=== PATIENT | female | born 1940 | race Caucasian/White ===

== ENCOUNTER 2016-12-05 22:29 | Inpatient (IN) ==
[2016-12-05] MEDS ORDERED: 0.9 % Sodium Chloride 1,000 ML IVC ONE (23:06)
[2016-12-05] MEDS ORDERED: Piperacillin/Tazobactam 3.375 GM in D5% in Water (Mini-Bag+) 100 ML IVPB ONE (23:06)
[2016-12-05] MEDS ORDERED: Vancomycin 750 MG in D5% in Water 250 ML IVPB ONE (23:06)
[2016-12-05] MEDS ORDERED: 0.9 % Sodium Chloride 500 ML IVC ONE (23:08)
[2016-12-05] MEDS ORDERED: Thiamine (B-1) 100 MG, Folic Acid 1 MG, MVI, adult with vitamin K 10 ML in 0.9 % Sodi... IVPB ONE (23:30)
--- NOTE | 2016-12-05 23:42 | Emergency Department Note ---
Disposition Clinical Impression: Elevated troponin, Peripheral artery disease, Ischemic necrosis of foot Acute CHF (congestive heart failure) Qualifiers: Congestive heart failure type: unspecified congestive heart failure type Qualified Code(s): I50.9 - Heart failure, unspecified UTI (urinary tract infection) Qualifiers: Urinary tract infection type: site unspecified Hematuria presence: with hematuria Qualified Code(s): N39.0 - Urinary tract infection, site not specified Disposition: Admitted As Inpatient Condition: Critical Time of Disposition: 01:37 Extremity Problem HPI - General Chief complaint: ED Extremity Problem,Nontraumatic Stated complaint: left foot, blood in urine Time Seen by Provider: 12/05/16 22:54 Source: family Limitations: no limitations Nursing Notes Reviewed: Yes Vital Signs Reviewed: Yes - History of Present Illness HPI Narrative: Mrs. Farias, a 68-year-old female, presents for evaluation of left foot necrosis. Patient is brought by her son, [id number], and granddaughter who are all nurses at this facility. Patient lives in [place] by herself. She was in [facility] in [place], had reportedly been medically cleared, and scheduled for left foot amputation today. She is unable to care for herself at home despite having a nursing administrator. As such, family drove and took the patient AMA from [place] and brought her to this facility where she can be seen, evaluated, and has social support. Patient is poorly known to her family thus duration of symptoms are unknown. There were contacted for surgical consent which made him aware of the patient's condition. Patient has had waxing and waning lucid intervals. 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 Known abdominal aortic aneurysm at approximately 2.5cm and reportedly stable. Known history of chronic everyday EtOH. Last drink was 3 days ago. Pain Scale: 8 - Related Data Allergies Allergy/AdvReac Type Severity Reaction Status Date / Time No Known Allergies Allergy Verified 12/05/16 22:51 Limitations: ROS unobtainable due to patients medical condition Past Medical History - Past Medical History Medical history: Reports: COPD - Social History Smoking Status: Current every day smoker Alcohol use: Reports: heavy Physical Exam Vital Signs Reviewed General: Patient is alert, oriented, appears frail and cachectic. HEENT: No facial asymmetry. Head is normocephalic and atraumatic. Oral mucosa tacky. Trachea midline. Cardiovascular: Heart regular rate and rhythm without clicks, rubs, gallops, or murmurs. Bilateral 1+ pitting pedal edema. Unable to palpate posterior tibial or dorsalis pedis pulse bilaterally. Respiratory: Symmetric chest rise with poor respiratory effort. Prolonged expiratory phase. Bilateral breath sounds are diminished without wheezing, crackles, or rhonchi. Abdomen: Bowel sounds present normoactive x-4 quadrants. Abdomen is soft, nondistended, and nontender. Musculoskeletal: Unable to assess secondary to patient's state. Patient is able to wiggle her toes bilaterally. Skin: Toes of left foot are necrotic and mummified. This extends to the forefoot where she has skin sloughing which continues to the malleoli and transitions into intact erythematous skin proximally 5-6 cm proximal to the malleoli. Right foot is warm with capillary refill. There is, however, cold skin overlying the patient's right Achilles tendon. Neuro: Cranial nerves II through XII without deficit. Sensation light touch intact. Psych: Patient's affect is appropriate for situation. - General Limitations: no limitations General appearance: alert Course Course Narrative: 11:[address] Fuller, religion instructor vascular surgery, to discuss the patient' s initial presentation evaluate whether he would entertain the patient at this facility. Based on our presentation the patient's critical picture, Dr. Fuller agrees to consult with mission to the medical service for medical optimization for surgery. On intake, patient is tachycardic, will manage the sepsis picture at this time. Patient lab work is concerning. She has elevated troponin of 0.09. Slightly low creatinine. Multiple electrolyte abnormalities - though none are critically low or critically high. Urinalysis is also concerning for UTI. Patient is not septic at this time. She has pulmonary edema on x-ray. We will stop IV fluids. She is receiving empiric vancomycin, Zosyn, thiamine, and folic acid. Recommend admission to the ICU for her vascular picture, acute exacerbation of CHF, UTI, and alcohol withdrawal. I discussed the patient with the admitting hospitalist, Dr. Thornton, who agrees to accept the patient to the ICU. Vital Signs Temperature 98 F 12/05/16 22:46 Pulse Rate 119 12/05/16 22:46 Respiratory Rate 18 12/05/16 22:46 Blood Pressure 134/69 12/05/16 22:46 O2 Sat by Pulse Oximetry 93 12/05/16 22:46 Temperature 97.7 F 12/06/16 04:00 Pulse Rate 80 12/06/16 04:00 Respiratory Rate 20 12/06/16 04:00 Blood Pressure 116/64 12/06/16 04:00 O2 Sat by Pulse Oximetry 100 12/06/16 04:00 Oxygen Delivery Oxygen Delivery Nasal Cannula Extremity Problem, Nontraumati - Lab Data Result diagrams: 12/06/16 00:21 12/06/16 00:21 Lab Results 12/06/16 12/06/16 12/06/16 Range/Units 00:21 00:21 00:21 WBC 9.5 (4.3-11.1) K/mcL RBC 5.14 H (3.82-4.97) M/mcL Hgb 14.6 (11.5-15.4) g/dL Hct 47.7 H (35.3-44.9) % MCV 92.8 (83.0-100.0) fL MCH 28.4 (28.0-33.3) pg MCHC 30.6 L (31.6-35.5) g/dL RDW 15.6 H (11.5-14.5) % Plt Count 119 L (140-400) K/mcL MPV 12.6 H (9.4-12.4) fL Immature Gran % 0.5 (0-4) % Seg Neutrophils % 87.6 % Lymphocytes % 7.3 % Monocytes % 4.1 % Eosinophils % 0.3 % Basophils % 0.2 % Neutrophils # 8.3 (1.6-8.9) K/mcL Lymphocytes # 0.7 (0.6-4.6) K/mcL Monocytes # 0.4 (0.0-1.3) K/mcL Eosinophils # 0.0 (0.0-0.6) K/mcL Basophils # 0.0 (0.0-0.2) K/mcL PT 13.8 H (9.4-12.1) Seconds INR 1.3 APTT 30.1 (26.0-36.0) Seconds VBG pH (7.32-7.42) pH Units VBG pCO2 (41-51) mmHg VBG pO2 (25-40) mmHg VBG HCO3 (21-27) mEq/L Sodium 140 (136-145) mEq/L Potassium 3.3 L (3.5-4.5) mEq/L Chloride 104 (98-109) mEq/L Carbon Dioxide 25 (19-29) mEq/L BUN 12 (7-20) mg/dL Creatinine 0.49 L (0.57-1.11) mg/dL Est GFR ( Amer) > 60 (> 60) Est GFR (Non-Af Amer) > 60 (> 60) BUN/Creatinine Ratio 24 (6-26) Glucose 92 (70-99) mg/dL Calculated Osmolality 289 (280-300) Lactic Acid (0.5-2.2) mmol/L Calcium 8.1 L (8.6-10.8) mg/dL Phosphorus 1.7 L (2.3-4.7) mg/dL Magnesium 1.4 L (1.6-2.6) mg/dL Total Bilirubin 3.8 H (0.2-1.2) mg/dL Direct Bilirubin 2.5 H (0.0-0.5) mg/dL Indirect Bilirubin 1.3 H (0.0-1.2) mg/dL AST 68 H (5-34) Units/L ALT 115 H (0-55) Units/L Alkaline Phosphatase 177 H (38-126) Units/L Troponin I (0-0.03) ng/mL B-Natriuretic Peptide (0-100) pg/mL Serum Total Protein 4.9 L (6.0-8.3) g/dL Albumin 1.9 L (3.5-5.0) g/dL Globulin 3.0 (2.4-3.5) g/dL Albumin/Globulin Ratio 0.6 L (1.1-2.2) Urine Color (Yellow) Urine Clarity (Clear) Urine pH (5.0-8.0) pH Units Ur Specific Prospect (1.010-1.025) Urine Protein (Neg-Trace) mg/dL Urine Glucose (UA) (Normal) mg/dL Urine Ketones (Negative) mg/dL Urine Blood (Negative) Urine Nitrite (Negative) Urine Bilirubin (Negative) Urine Urobilinogen (Normal) mg/dL Ur Leukocyte Esterase (Negative) Urine Microscopic RBC (0-3) per hpf Urine Microscopic WBC (0-3) per hpf Ur Squamous Epith Cells (None-Few) per lpf Urine Bacteria (None-Few) per hpf Ur Culture Indicated? (NO) 12/06/16 12/06/16 12/06/16 Range/Units 00:21 00:21 00:27 WBC (4.3-11.1) K/mcL RBC (3.82-4.97) M/mcL Hgb (11.5-15.4) g/dL Hct (35.3-44.9) % MCV (83.0-100.0) fL MCH (28.0-33.3) pg MCHC (31.6-35.5) g/dL RDW (11.5-14.5) % Plt Count (140-400) K/mcL MPV (9.4-12.4) fL Immature Gran % (0-4) % Seg Neutrophils % % Lymphocytes % % Monocytes % % Eosinophils % % Basophils % % Neutrophils # (1.6-8.9) K/mcL Lymphocytes # (0.6-4.6) K/mcL Monocytes # (0.0-1.3) K/mcL Eosinophils # (0.0-0.6) K/mcL Basophils # (0.0-0.2) K/mcL PT (9.4-12.1) Seconds INR APTT (26.0-36.0) Seconds VBG pH 7.40 (7.32-7.42) pH Units VBG pCO2 57 H (41-51) mmHg VBG pO2 43 H (25-40) mmHg VBG HCO3 35 H (21-27) mEq/L Sodium (136-145) mEq/L Potassium (3.5-4.5) mEq/L Chloride (98-109) mEq/L Carbon Dioxide (19-29) mEq/L BUN (7-20) mg/dL Creatinine (0.57-1.11) mg/dL Est GFR ( Amer) (> 60) Est GFR (Non-Af Amer) (> 60) BUN/Creatinine Ratio (6-26) Glucose (70-99) mg/dL Calculated Osmolality (280-300) Lactic Acid 1.8 (0.5-2.2) mmol/L Calcium (8.6-10.8) mg/dL Phosphorus (2.3-4.7) mg/dL Magnesium (1.6-2.6) mg/dL Total Bilirubin (0.2-1.2) mg/dL Direct Bilirubin (0.0-0.5) mg/dL Indirect Bilirubin (0.0-1.2) mg/dL AST (5-34) Units/L ALT (0-55) Units/L Alkaline Phosphatase (38-126) Units/L Troponin I 0.09 H* (0-0.03) ng/mL B-Natriuretic Peptide (0-100) pg/mL Serum Total Protein (6.0-8.3) g/dL Albumin (3.5-5.0) g/dL Globulin (2.4-3.5) g/dL Albumin/Globulin Ratio (1.1-2.2) Urine Color (Yellow) Urine Clarity (Clear) Urine pH (5.0-8.0) pH Units Ur Specific Prospect (1.010-1.025) Urine Protein (Neg-Trace) mg/dL Urine Glucose (UA) (Normal) mg/dL Urine Ketones (Negative) mg/dL Urine Blood (Negative) Urine Nitrite (Negative) Urine Bilirubin (Negative) Urine Urobilinogen (Normal) mg/dL Ur Leukocyte Esterase (Negative) Urine Microscopic RBC (0-3) per hpf Urine Microscopic WBC (0-3) per hpf Ur Squamous Epith Cells (None-Few) per lpf Urine Bacteria (None-Few) per hpf Ur Culture Indicated? (NO) 12/06/16 12/06/16 Range/Units 00:27 00:44 WBC (4.3-11.1) K/mcL RBC (3.82-4.97) M/mcL Hgb (11.5-15.4) g/dL Hct (35.3-44.9) % MCV (83.0-100.0) fL MCH (28.0-33.3) pg MCHC (31.6-35.5) g/dL RDW (11.5-14.5) % Plt Count (140-400) K/mcL MPV (9.4-12.4) fL Immature Gran % (0-4) % Seg Neutrophils % % Lymphocytes % % Monocytes % % Eosinophils % % Basophils % % Neutrophils # (1.6-8.9) K/mcL Lymphocytes # (0.6-4.6) K/mcL Monocytes # (0.0-1.3) K/mcL Eosinophils # (0.0-0.6) K/mcL Basophils # (0.0-0.2) K/mcL PT (9.4-12.1) Seconds INR APTT (26.0-36.0) Seconds VBG pH (7.32-7.42) pH Units VBG pCO2 (41-51) mmHg VBG pO2 (25-40) mmHg VBG HCO3 (21-27) mEq/L Sodium (136-145) mEq/L Potassium (3.5-4.5) mEq/L Chloride (98-109) mEq/L Carbon Dioxide (19-29) mEq/L BUN (7-20) mg/dL Creatinine (0.57-1.11) mg/dL Est GFR ( Amer) (> 60) Est GFR (Non-Af Amer) (> 60) BUN/Creatinine Ratio (6-26) Glucose (70-99) mg/dL Calculated Osmolality (280-300) Lactic Acid (0.5-2.2) mmol/L Calcium (8.6-10.8) mg/dL Phosphorus (2.3-4.7) mg/dL Magnesium (1.6-2.6) mg/dL Total Bilirubin (0.2-1.2) mg/dL Direct Bilirubin (0.0-0.5) mg/dL Indirect Bilirubin (0.0-1.2) mg/dL AST (5-34) Units/L ALT (0-55) Units/L Alkaline Phosphatase (38-126) Units/L Troponin I (0-0.03) ng/mL B-Natriuretic Peptide 3035 H (0-100) pg/mL Serum Total Protein (6.0-8.3) g/dL Albumin (3.5-5.0) g/dL Globulin (2.4-3.5) g/dL Albumin/Globulin Ratio (1.1-2.2) Urine Color [place] A (Yellow) Urine Clarity Cloudy A (Clear) Urine pH 5.5 (5.0-8.0) pH Units Ur Specific Prospect > 1.030 H (1.010-1.025) Urine Protein 100 H (Neg-Trace) mg/dL Urine Glucose (UA) Normal (Normal) mg/dL Urine Ketones Trace H (Negative) mg/dL Urine Blood Large H (Negative) Urine Nitrite Positive A (Negative) Urine Bilirubin Moderate H (Negative) Urine Urobilinogen Normal (Normal) mg/dL Ur Leukocyte Esterase Small H (Negative) Urine Microscopic RBC 15-30 H (0-3) per hpf Urine Microscopic WBC 0-3 (0-3) per hpf Ur Squamous Epith Cells Many H (None-Few) per lpf Urine Bacteria None Seen (None-Few) per hpf Ur Culture Indicated? YES A (NO) Attestation Statement - Attestation Attestation: I examined this patient and my medical decision-making was reviewed with the Resident Physician. I agree with the documented findings, disposition and treatment plan as described except to the extent set forth below. Findings consistent with necrotic foot. Concurrent urinary tract infection. Discussed case with vascular surgery and the patient will be admitted for medical maximization. She was treated for sepsis. Her vital signs improved with IV fluids. She does have history of alcoholism and ciwa initiated. The patient only admitted to the intensive care unit for further management of necrotic foot. I spent greater than 35 minutes of critical care time resuscitating this acutely ill patient suffering from alcoholism, alcohol withdrawal, sepsis, foot. This is excluding billable procedures..
[2016-12-06 00:36] LABS: Basophils % 0.2 %; Eosinophils % 0.3 %; Hematocrit 47.7 % (35.3-44.9); Hemoglobin 14.6 g/dL (11.5-15.4); Immature Granulocytes % 0.5 % (0-4); Lymphocytes # 0.7 K/mcL (0.6-4.6); Lymphocytes % 7.3 %; Mean Corpuscular HGB Conc 30.6 g/dL (31.6-35.5); Mean Corpuscular Hemoglobin 28.4 pg (28.0-33.3); Mean Corpuscular Volume 92.8 fL (83.0-100.0); Mean Platelet Volume 12.6 fL (9.4-12.4); Monocytes # 0.4 K/mcL (0.0-1.3); Monocytes % 4.1 %; Neutrophils # 8.3 K/mcL (1.6-8.9); Platelet Count 119 K/mcL (140-400); Red Blood Count 5.14 M/mcL (3.82-4.97); Red Cell Distribution Width 15.6 % (11.5-14.5); Segmented Neutrophils % 87.6 %
[2016-12-06 00:43] LABS: INR 1.3; Prothrombin Time 13.8 Seconds (9.4-12.1)
[2016-12-06 00:46] LABS: Activated Partial Thrombo Time 30.1 Seconds (26.0-36.0)
[2016-12-06 00:46] LABS: VBG PH 7.4 pH Units (7.32-7.42)
[2016-12-06 00:52] LABS: Bilirubin,Urine Moderate (Negative); Blood,Urine Large (Negative); Clarity,Urine Cloudy (Clear); Color,Urine Orange (Yellow); Glucose,Urine (UA) Normal (Normal); Ketones,Urine Trace mg/dL (Negative); Leukocyte Esterase,Urine Small (Negative); Nitrite,Urine Positive (Negative); PH,Urine 5.5 pH Units (5.0-8.0); Protein,Urine 100 mg/dL (Neg-Trace); Specific Gravity,Urine > 1.030 (1.010-1.025); Urobilinogen,Urine Normal (Normal)
[2016-12-06 00:52] LABS: Alanine Aminotransferase 115 Units/L (0-55); Albumin/Globulin Ratio 0.6 (1.1-2.2); Alkaline Phosphatase 177 Units/L (38-126); Aspartate Amino Transferase 68 Units/L (5-34); BUN/Creatinine Ratio 24 (6-26); Bilirubin,Direct 2.5 mg/dL (0.0-0.5); Bilirubin,Indirect 1.3 mg/dL (0.0-1.2); Bilirubin,Total 3.8 mg/dL (0.2-1.2); Blood Urea Nitrogen 12 mg/dL (7-20); Calcium 8.1 mg/dL (8.6-10.8); Carbon Dioxide 25 mEq/L (19-29); Chloride 104 mEq/L (98-109); Glucose 92 mg/dL (70-99); Magnesium 1.4 mg/dL (1.6-2.6); Osmolality,Calculated 289 (280-300); Phosphorous 1.7 mg/dL (2.3-4.7); Potassium 3.3 mEq/L (3.5-4.5); Sodium 140 mEq/L (136-145); Total Protein 4.9 g/dL (6.0-8.3); eGFR For African Americans > 60 (> 60); eGFR For Non-African Americans > 60 (> 60)
[2016-12-06 00:53] LABS: Bacteria,Urine None Seen per hpf (None-Few)
[2016-12-06 00:54] LABS: Albumin 1.9 g/dL (3.5-5.0)
[2016-12-06 00:59] LABS: RBC,Urine 15-30 per hpf (0-3); Squamous Epithelial Cell,Urine Many per lpf (None-Few); WBC,Urine 0-3 per hpf (0-3)
[2016-12-06] MEDS ORDERED: Magnesium Sulfate 4 GM in D5% in Water 100 ML IVPB ONE (01:53)
[2016-12-06] MEDS ORDERED: Acetaminophen 325 MG TABLET PO PRN (01:58)
[2016-12-06] MEDS ORDERED: Naloxone 0.4 MG/ML INJ IVP PRN (01:58)
[2016-12-06] MEDS ORDERED: *HR* LORazepam 2 MG/ML VIAL IVP PRN ×3 (02:02)
--- NOTE | 2016-12-06 02:09 | Internal Med History&Physical ---
Date of Encounter: 12/06/16 Time of Encounter: 02:07 Assessment and Plan (1) Gangrene of left foot Current visit: Yes Status: Acute Vascuar surgery is consulted by ER-Dr Rodas said to have been called Patient is currently not septic Lactate is normal Continue Vancomycin and Zosyn NPO for surgery when medically optimized Patient is high risk for perioperative complications (2) Acute CHF (congestive heart failure) Current visit: Yes Status: Acute Patient with no known medical history presented with Left foot gangrene Associated hypoxia, Pulmonary edema on CXR and BNP >3000 She also has 2+ piting edema She could have CMP from alcohol or chronic ischemia Baseline unknown IV lasix 80mg IV stat Continue IV Lasix 40mg daily Strict I/Os Daily weight Obtain ECHO Cardiology consulted Qualifiers: Congestive heart failure type: unspecified congestive heart failure type Qualified Code(s): I50.9 - Heart failure, unspecified (3) Alcohol abuse Current visit: Yes Status: Chronic Patient is currently disoriented This could be from alcohol withdrawal Baseline is unknown family hasnt seen patient is 10 years [facility] protocol Replace electrolytes Thiamine/MV/Folate (4) Transaminitis Current visit: Yes Status: Acute 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 Continue to monitor Send hepatitis panel (5) UTI (urinary tract infection) Current visit: Yes Status: Acute Continue Zosyn, follow urine culture Qualifiers: Urinary tract infection type: site unspecified Hematuria presence: with hematuria Qualified Code(s): N39.0 - Urinary tract infection, site not specified; R31.9 - Hematuria, unspecified (6) Elevated troponin Current visit: Yes Status: Acute Possibly secondary to demand from ischemia from CHF Patient is currently confused and is unable to provide a history Family not at bedside Continue to cycle troponin, follow ECHO (7) Peripheral artery disease Current visit: Yes Status: Chronic Chronic (8) Hypophosphatemia Current visit: Yes Status: Acute Repleted (9) Hypokalemia Current visit: Yes Status: Acute Replaced, continue to monitor (10) Tobacco abuse Current visit: Yes Status: Chronic Unable to participate in counselling Internal Medicine - H&P: HPI Chief complaint: brought in by family for Left leg necrosis Admitted From: Hospital to Hospital Transfer Plans for Post Hospital Care: Transfer Inp Rehab Fac History of present illness: Ms. Farias is a 76 year old female with unknown medical history Patient was brought in by her son who is an RN here at [facility] after her received a call for consent from a hospital in [place] for amputation of her left foot due to gangrene He then went to pick the patient up and brought her here for management and better family support Papers from the transfer hospital did not have medical information about work ups, imaging or any testing that has been done so far Patient is confused and oriented to person only, history could not be obtained as family members had left EMR states she has a PMH of COPD, Tobacco abuse, Daily alcohol intake, PAD. Other ROS could not be obtained Past Med Surg Social Fam HX - Past Medical History Medical history: COPD - Social History Smoking Status: Current every day smoker Alcohol use: heavy Internal Medicine - H&P: Meds ALPRAZolam [Xanax 0.5 MG Tablet] 0.5 mg PO TID PRN 12/06/16 [History] Albuterol Sulfate [Ventolin Hfa] 2 puff IH Q6HR PRN 12/06/16 [History] Budesonide/Formoterol 80/4.5 [Symbicort 80/4.5] 2 puff IH BID 12/06/16 [History ] Tiotropium [Spiriva] 18 mcg IH 0700 12/06/16 [History] 3 Allergy/AdvReac Type Severity Reaction Status Date / Time No Known Allergies Allergy Verified 12/05/16 22:51 ROS unobtainable: due to mental status, other (Patient is confused and unable to provide history) All Systems PM: A 10-system review of systems was performed and is negative for pertinent findings except as documented above in the HPI. - Constitutional Vitals: Temp Pulse Resp BP Pulse Ox 98 F 97 19 128/80 97 12/05/16 22:46 12/06/16 01:50 12/06/16 01:50 12/06/16 01:50 12/06/16 01:50 General appearance: Present: cachectic, A&O X 1 (Oriented to person only) - Head Head exam: Present: atraumatic - Eye Eye exam: Present: EOMI, scleral icterus, conjuntiva pink. Absent: nystagmus - ENT ENT exam: Present: mucous membranes moist - Neck Neck exam general surgery: Present: normal inspection - Respiratory Respiratory exam: Present: decreased breath sounds (bilateral decreased breath sounds, few scattered crackles), rales - Cardiovascular Cardiovascular exam: Present: RRR (Multiple skipped beats), +S1, +S2. Absent: diastolic murmur, gallop, rubs, systolic murmur - GI/Abdominal GI/Abdominal exam: Present: normal bowel sounds, soft, no peritoneal signs. Absent: distended, tenderness - Extremities Exam Additional comments: Left foot gangrenous up to the ankle. From the left ankle to the barrios, there are multiple patches of wet gangrene Her right foot has pitting pedal edema up to the mid barrios and is cool to touch - Neurological Exam Neurological exam: Present: alert, CN II-XII intact, no focal deficits. Absent : oriented X3, pronater drift, facial droop, speech deficit - Skin Skin exam: Present: dry Internal Med - H&P Results - Labs CBC & Chem 7: 12/06/16 00:21 12/06/16 00:21
[2016-12-06] MEDS ORDERED: Furosemide 80 MG in 0.9 % Sodium Chloride 50 ML IVPB ONE (02:30)
[2016-12-06] MEDS: Magnesium Sulfate 2 GM in D5% in Water 100 ML IVPB SCH ×2 (04:10→05:28)
[2016-12-06] MEDS: *HR* Morphine 2 MG/ML SYRINGE IVP PRN ×2 (06:33→10:46)
[2016-12-06] MEDS: *HR* Heparin 5,000 UNIT/ML VIAL SQ SCH ×2 (06:33→14:19)
[2016-12-06 07:37] LABS: Basophils % 0.3 %; Eosinophils # 0.1 K/mcL (0.0-0.6); Eosinophils % 0.5 %; Hematocrit 47.6 % (35.3-44.9); Hemoglobin 14.4 g/dL (11.5-15.4); Lymphocytes # 0.8 K/mcL (0.6-4.6); Lymphocytes % 8.7 %; Mean Corpuscular HGB Conc 30.3 g/dL (31.6-35.5); Mean Corpuscular Hemoglobin 28.2 pg (28.0-33.3); Mean Corpuscular Volume 93.3 fL (83.0-100.0); Mean Platelet Volume 12.9 fL (9.4-12.4); Monocytes # 0.4 K/mcL (0.0-1.3); Monocytes % 4.2 %; Neutrophils # 7.8 K/mcL (1.6-8.9); Platelet Count 124 K/mcL (140-400); Red Cell Distribution Width 15.9 % (11.5-14.5); Segmented Neutrophils % 85.3 %
[2016-12-06] MEDS ORDERED: Potassium Phosphate 44 MEQ in 0.9 % Sodium Chloride 250 ML IVPB PRN (08:12)
[2016-12-06] MEDS ORDERED: Calcium Gluconate 1,000 MG in D5% in Water 100 ML IVPB PRN (08:12)
[2016-12-06] MEDS ORDERED: Magnesium Sulfate 2 GM in D5% in Water 100 ML IVPB PRN (08:12)
[2016-12-06 08:35] LABS: BUN/Creatinine Ratio 22 (6-26); Blood Urea Nitrogen 11 mg/dL (7-20); Calcium 8.1 mg/dL (8.6-10.8); Carbon Dioxide 27 mEq/L (19-29); Chloride 104 mEq/L (98-109); Glucose 106 mg/dL (70-99); Magnesium 2.4 mg/dL (1.6-2.6); Osmolality,Calculated 294 (280-300); Phosphorous 2.5 mg/dL (2.3-4.7); Potassium 3.3 mEq/L (3.5-4.5); Sodium 142 mEq/L (136-145); eGFR For African Americans > 60 (> 60); eGFR For Non-African Americans > 60 (> 60)
[2016-12-06] MEDS ORDERED: Albuterol 2.5 MG/3 ML NEBULIZER IH PRN (08:43)
[2016-12-06] MEDS ORDERED: Ipratropium/Albuterol Neb 3 ML IH PRN (08:43)
[2016-12-06] MEDS: Multivit/Ca/Min/Fe/FA 1 TAB TABLET PO SCH (08:46)
[2016-12-06] MEDS: Piperacillin/Tazobactam 3.375 GM in D5% in Water (Mini-Bag+) 100 ML IVPB SCH ×2 (08:46→15:24)
[2016-12-06] MEDS: Folic Acid 1 MG TABLET PO SCH (08:46)
[2016-12-06] MEDS: Budesonide/Formoterol 80/4.5 MDI IH SCH ×2 (09:08→21:50)
[2016-12-06 10:47] LABS: Basophils % 0.3 %; Eosinophils # 0.1 K/mcL (0.0-0.6); Eosinophils % 0.6 %; Hematocrit 47.5 % (35.3-44.9); Hemoglobin 14.3 g/dL (11.5-15.4); Immature Granulocytes % 0.5 % (0-4); Lymphocytes # 0.9 K/mcL (0.6-4.6); Lymphocytes % 9.2 %; Mean Corpuscular HGB Conc 30.1 g/dL (31.6-35.5); Mean Corpuscular Hemoglobin 28.3 pg (28.0-33.3); Mean Corpuscular Volume 94.1 fL (83.0-100.0); Mean Platelet Volume 12.1 fL (9.4-12.4); Monocytes # 0.4 K/mcL (0.0-1.3); Monocytes % 4.4 %; Neutrophils # 7.9 K/mcL (1.6-8.9); Platelet Count 116 K/mcL (140-400); Red Blood Count 5.05 M/mcL (3.82-4.97); Red Cell Distribution Width 15.9 % (11.5-14.5)
[2016-12-06 10:59] LABS: BUN/Creatinine Ratio 22 (6-26); Blood Urea Nitrogen 11 mg/dL (7-20); Calcium 8.1 mg/dL (8.6-10.8); Carbon Dioxide 27 mEq/L (19-29); Chloride 104 mEq/L (98-109); Glucose 96 mg/dL (70-99); Osmolality,Calculated 291 (280-300); Phosphorous 3.1 mg/dL (2.3-4.7); Potassium 3.9 mEq/L (3.5-4.5); Sodium 141 mEq/L (136-145); eGFR For African Americans > 60 (> 60); eGFR For Non-African Americans > 60 (> 60)
[2016-12-06] MEDS ORDERED: Vancomycin 750 MG in D5% in Water 250 ML IVPB SCH (11:00)
[2016-12-06 11:17] LABS: Ionized Calcium 0.79 mmol/L (1.15-1.35)
--- NOTE | 2016-12-06 13:14 | Cardiology Consult Note ---
<Gerardo Fuller - Last Filed: 12/06/16 13:02> Date of Encounter: 12/06/16 Time of Encounter: 10:45 Assessment and Plan (1) Acute CHF (congestive heart failure) Current Visit: Yes Status: Acute Acute CHF. Unclear if acute or chronic. Presents from [place] with son who has not seen her in 10 years. Patient dowsy at this time. Does not provide much information. BNP 3000, CXR shows cardiomegaly and pulmonary edema. TTE pending. Obtain records from outside facility. Agree with IV lasix. Increase to 40 mg BID. Qualifiers: Congestive heart failure type: unspecified congestive heart failure type Qualified Code(s): I50.9 - Heart failure, unspecified (2) Elevated troponin Current Visit: Yes Status: Acute Flat troponin elevation at 0.09x2 in the setting of CHF and ischemic leg. Demand ischemia. TTE pending. She denies chest pain. Discussion w patient/family: The assessment and plan as outlined above was discussed with the patient and/or family members who expressed understanding and agreement. All questions were answered. Thank you for involving us in the care of your patient. Please call with any questions. History of Present Illness Consult date: 12/06/16 Requesting physician: Philip Thornton Consult reason: Acute CHF. Mild troponin. Chief complaint: toe pain History of present illness: Ms. Farias is a 76 year old female with a history of COPD, PVD, and tobacco and ETOH abuse who was brought to [facility] by her son. She was at an outside hospital in [place] being prepped for left leg amputation for gangrenous foot. Her son was visiting her before surgery. 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 He states that he has not seen her in ten years. She recently lived in [place]. She recently moved to live with step daughter in [place]. Initial work- up revealed acute CHF. He states she was diagnosed with CHF at outside hospital. He is not sure what testing has been done. He says she was already cleared for surgery. On my exam she is drowsy after receiving morphine for foot pain. She denies chest pain or increasing SOB. She is immobile due to her foot pain. Past Med Surg Social Fam HX - Past Medical History Medical history: COPD, peripheral artery disease (Carotid artery disease) - Social History Smoking Status: Current every day smoker Packs per day: 1 Smokeless Tobacco Status: No Alcohol use: heavy Medications and Allergies Albuterol Sulfate [Ventolin Hfa] 2 puff IH Q6HR PRN 12/06/16 [History] Budesonide/Formoterol 80/4.5 [Symbicort 80/4.5] 2 puff IH BID 12/06/16 [History ] Tiotropium [Spiriva] 18 mcg IH 0700 12/06/16 [History] clonazePAM [Klonopin] 1 mg PO BID 12/06/16 [History] 3 Allergy/AdvReac Type Severity Reaction Status Date / Time No Known Allergies Allergy Verified 12/05/16 22:51 All Systems Review: A 10-system review of systems was performed and is negative for pertinent findings except as documented above in the HPI. Physical Examination Vital Signs, Last 4 Hours Temp Pulse Resp BP Pulse Ox 12/06/16 12:30 98.3 F 12/06/16 11:00 90 17 114/67 100 12/06/16 10:00 87 19 104/61 99 General: No Apparent Distress, Other (Drowsy, shakes head yes and no. Ill appearing, frail.) HEENT: Atraumatic, Normocephaly, Mucus Membranes Moist Neck: No JVD, Normal carotid pulses Cardiac: Reg Rate and Rhythm, Normal S1 and S2, No Murmur Lungs: Normal Breath Sounds, No Wheeze, Rales, Rhonchi Neuro: Other (Drowsy, genralized weakness) Abdomen: Soft, Non-Tender Skin: No rashes noted on visualized skin Musculoskeletal: No Chest Wall Tenderness Extremities: No Clubbing, No Cyanosis, Normal Pulses, Other (1+ BLE edema) Results 12/06/16 10:38 12/06/16 10:38 Lab Results 12/06/16 12/06/16 12/06/16 07:24 07:24 07:24 WBC 9.1 Hgb 14.4 Hct 47.6 H Plt Count 124 L Sodium 142 Potassium 3.3 L Chloride 104 Carbon Dioxide 27 BUN 11 Creatinine 0.51 L Glucose 106 H Calcium 8.1 L Magnesium 2.4 Troponin I 0.09 H* 12/06/16 12/06/16 10:38 10:38 WBC 9.3 Hgb 14.3 Hct 47.5 H Plt Count 116 L Sodium 141 Potassium 3.9 Chloride 104 Carbon Dioxide 27 BUN 11 Creatinine 0.51 L Glucose 96 Calcium 8.1 L Magnesium 2.0 Troponin I Chest X-Ray 12/05/16 23:07 IMPRESSION: Cardiomegaly with bilateral pleural effusions and bilateral airspace disease, likely pulmonary edema. D/ / Melvina Pires Cha, MD / Melvina Pires Cha, MD Interpreting Provider: Melvina Pires Cha, MD - EKG Interpretation EKG results cardiology: personally reviewed (SR with left atrial enlargement) Consult Discharge Plan - Plan Referrals: NONE,PCP [Primary Care Provider] - <Tara Chaudhry - Last Filed: 12/06/16 13:44> Date of Encounter: 12/06/16 Assessment and Plan Discussion w patient/family: The assessment and plan as outlined above was discussed with the patient and/or family members who expressed understanding and agreement. All questions were answered. Thank you for involving us in the care of your patient. Please call with any questions. History of Present Illness History of present illness: Ms. Farias is a 76 year old female All Systems Review: A 10-system review of systems was performed and is negative for pertinent findings except as documented above in the HPI. Physical Examination Vital Signs, Last 4 Hours Temp Pulse Resp BP Pulse Ox 12/06/16 13:07 79 19 105/47 99 12/06/16 12:30 98.3 F 12/06/16 12:00 82 16 103/52 99 12/06/16 11:00 90 17 114/67 100 12/06/16 10:00 87 19 104/61 99 Results 12/06/16 10:38 12/06/16 10:38 Lab Results 12/06/16 12/06/16 12/06/16 07:24 07:24 07:24 WBC 9.1 Hgb 14.4 Hct 47.6 H Plt Count 124 L Sodium 142 Potassium 3.3 L Chloride 104 Carbon Dioxide 27 BUN 11 Creatinine 0.51 L Glucose 106 H Calcium 8.1 L Magnesium 2.4 Troponin I 0.09 H* 09/23/17 09/23/17 10:38 10:38 WBC 9.3 Hgb 14.3 Hct 47.5 H Plt Count 116 L Sodium 141 Potassium 3.9 Chloride 104 Carbon Dioxide 27 BUN 11 Creatinine 0.51 L Glucose 96 Calcium 8.1 L Magnesium 2.0 Troponin I - Attending Attestation I examined this patient and my medical decision-making was reviewed with the Resident Physician. I agree with the documented findings, disposition and treatment plan. Ms. Farias was at an outside hospital in [place] for a gangrenous left foot where she was living with her step-daughter. Her son, who lives in this area and who works at [facility], picked her up in [place] and brought her to [facility] for further care. He has been estranged from the patient for the last 10 years and is not aware of prior medical history. It is known that she drinks alcohol excessively. Workup so far demonstrates concern for CHF (unclear systolic vs diastolic); BNP 3000, CXR demonstrating pulmonary edema. Echo is pending. Agree with IV lasix. Troponin elevation is flat and adynamic in setting of CHF and ischemic leg. Do not suspect ACS at this time. ECG demonstrates nonspecific ST abnormalities but without acute ischemic findings.
[2016-12-06] MEDS: Vancomycin 750 MG in D5% in Water 250 ML IVPB SCH (14:18)
[2016-12-06 17:09] LABS: Magnesium 1.8 mg/dL (1.6-2.6); Phosphorous 2.9 mg/dL (2.3-4.7); Potassium 3.9 mEq/L (3.5-4.5)
--- NOTE | 2016-12-06 17:25 | General Surgery Consult Note ---
Date of Encounter: 12/06/16 Time of Encounter: 09:30 Assessment and Plan (1) Ischemic necrosis of foot Current Visit: Yes Status: Acute Ankle-brachial index 0.0. The patient is nonambulatory and has profound comorbid conditions. I would recommend left above-knee amputation (2) Gangrene of left foot Current Visit: Yes Status: Acute I would recommend left above-knee amputation after medical stabilization. We will perform amputation within the next 24 hours. History of Present Illness Consult date: 12/06/16 Reason for consult: ischemic leg History of present illness: The patient is a very debilitated 76-year-old female with a history of alcohol abuse and recent diagnosis of acute congestive heart failure. She does not respond to my questions. It is also noted that she has elevated liver function tests and bilirubin which may indicate the level of alcoholic cirrhosis. She complains bitterly of left foot pain. Her left foot is partially mummified but has active gangrene along the plantar aspect over the heel. The ankle-brachial index 0.0. Her left leg is cold from the midcalf distally. She does not appear to have ascending cellulitis. She is currently under antibiotic therapy. I would strongly recommend left above-knee amputation as a life- saving measure as soon as she is medically stable. We will plan on proceeding with left above-knee amputation within the next 24 hours. She has decreased mental status her son has assumed power of radiation oncology manager duties as first-degree family member Past Med Surg Social Fam HX - Past Medical History Medical history: COPD, peripheral artery disease (Carotid artery disease) - Social History Smoking Status: Current every day smoker Packs per day: 1 Smokeless Tobacco Status: No Alcohol use: heavy Medications and Allergies Albuterol Sulfate [Ventolin Hfa] 2 puff IH Q6HR PRN 12/06/16 [History] Budesonide/Formoterol 80/4.5 [Symbicort 80/4.5] 2 puff IH BID 12/06/16 [History ] Tiotropium [Spiriva] 18 mcg IH 0700 12/06/16 [History] clonazePAM [Klonopin] 1 mg PO BID 12/06/16 [History] 3 Allergy/AdvReac Type Severity Reaction Status Date / Time No Known Allergies Allergy Verified 12/05/16 22:51 Review of Systems All systems PM: A 10-system review of systems was performed and is negative for pertinent findings except as documented above in the HPI. General Surgery Exam Initial Vital Signs Temp Pulse Resp BP Pulse Ox 98 F 119 18 134/69 93 12/05/16 22:46 12/05/16 22:46 12/05/16 22:46 12/05/16 22:46 12/05/16 22:46 - General physical appearance moderate pain, cachectic - Eyes other (Periorbital wasting) - Neck no masses, trachea midline, no lymphadectomy - Respiratory wheezing: bilateral (Decreased breath sounds), rales: bilateral - Expanded Cardiovascular Exam Peripheral pulses: 0: Femoral (L) PM, Posterior Tibialis (L), Dorsalis Pedis (L ) PM, 2+: Femoral (R) PM - Abdomen Abdomen general surgery: Present: bowel sounds present, soft, non tender - Neurologic Present: disoriented (And unresponsive) - Musculoskeletal Present: other (Active gangrene with forefoot mummification left foot) - Psychiatric Psychiatric general surgery: Present: other (Unresponsive, disoriented) Exam Initial Vital Signs Temp Pulse Resp BP Pulse Ox 98 F 119 18 134/69 93 12/05/16 22:46 12/05/16 22:46 12/05/16 22:46 12/05/16 22:46 12/05/16 22:46 Results - Labs 12/06/16 10:38 12/06/16 16:52 Abnormal lab results RBC 5.05 M/mcL (3.82-4.97) H 12/06/16 10:38 Hct 47.5 % (35.3-44.9) H 12/06/16 10:38 MCHC 30.1 g/dL (31.6-35.5) L 12/06/16 10:38 RDW 15.9 % (11.5-14.5) H 12/06/16 10:38 Plt Count 116 K/mcL (140-400) L 12/06/16 10:38 PT 13.8 Seconds (9.4-12.1) H 12/06/16 00:21 VBG pCO2 57 mmHg (41-51) H 12/06/16 00:27 VBG pO2 43 mmHg (25-40) H 12/06/16 00:27 VBG HCO3 35 mEq/L (21-27) H 12/06/16 00:27 Creatinine 0.51 mg/dL (0.57-1.11) L 12/06/16 10:38 Calcium 8.1 mg/dL (8.6-10.8) L 12/06/16 10:38 Ionized Calcium 0.79 mmol/L (1.15-1.35) L 12/06/16 10:38 Total Bilirubin 3.8 mg/dL (0.2-1.2) H 12/06/16 00:21 Direct Bilirubin 2.5 mg/dL (0.0-0.5) H 12/06/16 00:21 Indirect Bilirubin 1.3 mg/dL (0.0-1.2) H 12/06/16 00:21 AST 68 Units/L (5-34) H 12/06/16 00:21 ALT 115 Units/L (0-55) H 12/06/16 00:21 Alkaline Phosphatase 177 Units/L (38-126) H 12/06/16 00:21 Troponin I 0.09 ng/mL (0-0.03) H* 12/06/16 07:24 B-Natriuretic Peptide 3035 pg/mL (0-100) H 12/06/16 00:27 Serum Total Protein 4.9 g/dL (6.0-8.3) L 12/06/16 00:21 Albumin 1.9 g/dL (3.5-5.0) L 12/06/16 00:21 Albumin/Globulin Ratio 0.6 (1.1-2.2) L 12/06/16 00:21 Urine Color [place] (Yellow) A 12/06/16 00:44 Urine Clarity Cloudy (Clear) A 12/06/16 00:44 Ur Specific [place] > 1.030 (1.010-1.025) H 12/06/16 00:44 Urine Protein 100 mg/dL (Neg-Trace) H 12/06/16 00:44 Urine Ketones Trace mg/dL (Negative) H 12/06/16 00:44 Urine Blood Large (Negative) H 12/06/16 00:44 Urine Nitrite Positive (Negative) A 12/06/16 00:44 Urine Bilirubin Moderate (Negative) H 12/06/16 00:44 Ur Leukocyte Esterase Small (Negative) H 12/06/16 00:44 Urine Microscopic RBC 15-30 per hpf (0-3) H 12/06/16 00:44 Ur Squamous Epith Cells Many per lpf (None-Few) H 12/06/16 00:44 Ur Culture Indicated? YES (NO) A 12/06/16 00:44 Diabetes panel 12/06/16 12/06/16 12/06/16 Range/Units 07:24 10:38 16:52 Sodium 142 141 (136-145) mEq/L Potassium 3.3 L 3.9 3.9 (3.5-4.5) mEq/L Chloride 104 104 (98-109) mEq/L Carbon Dioxide 27 27 (19-29) mEq/L BUN 11 11 (7-20) mg/dL Creatinine 0.51 L 0.51 L (0.57-1.11) mg/dL Glucose 106 H 96 (70-99) mg/dL Calcium 8.1 L 8.1 L (8.6-10.8) mg/dL Calcium panel 12/06/16 12/06/16 12/06/16 Range/Units 07:24 10:38 16:52 Calcium 8.1 L 8.1 L (8.6-10.8) mg/dL Phosphorus 2.5 3.1 2.9 (2.3-4.7) mg/dL Pituitary panel 12/06/16 12/06/16 12/06/16 Range/Units 07:24 10:38 16:52 Sodium 142 141 (136-145) mEq/L Potassium 3.3 L 3.9 3.9 (3.5-4.5) mEq/L Chloride 104 104 (98-109) mEq/L Carbon Dioxide 27 27 (19-29) mEq/L BUN 11 11 (7-20) mg/dL Creatinine 0.51 L 0.51 L (0.57-1.11) mg/dL Glucose 106 H 96 (70-99) mg/dL Calcium 8.1 L 8.1 L (8.6-10.8) mg/dL Adrenal panel 12/06/16 12/06/16 12/06/16 Range/Units 07:24 10:38 16:52 Sodium 142 141 (136-145) mEq/L Potassium 3.3 L 3.9 3.9 (3.5-4.5) mEq/L Chloride 104 104 (98-109) mEq/L Carbon Dioxide 27 27 (19-29) mEq/L BUN 11 11 (7-20) mg/dL Creatinine 0.51 L 0.51 L (0.57-1.11) mg/dL Glucose 106 H 96 (70-99) mg/dL Calcium 8.1 L 8.1 L (8.6-10.8) mg/dL All other labs normal. Consult Discharge Plan - Plan Referrals: NONE,PCP [Primary Care Provider] -
[2016-12-06] MEDS: Furosemide 40 MG/4 ML VIAL IVP SCH (17:57)
[2016-12-06] MEDS: Aspirin Enteric Coated 81 MG Tablet PO SCH (17:57)
[2016-12-07] MEDS: Piperacillin/Tazobactam 3.375 GM in D5% in Water (Mini-Bag+) 100 ML IVPB SCH ×3 (00:22→18:08)
[2016-12-07] MEDS: *HR* Heparin 5,000 UNIT/ML VIAL SQ SCH ×2 (00:23→06:44)
[2016-12-07] MEDS: *HR* Morphine 2 MG/ML SYRINGE IVP PRN ×4 (02:45→21:10)
[2016-12-07] MEDS: Vancomycin 750 MG in D5% in Water 250 ML IVPB SCH (03:47)
[2016-12-07 03:54] LABS: Basophils % 0.2 %; Eosinophils # 0.1 K/mcL (0.0-0.6); Eosinophils % 0.7 %; Hemoglobin 13.8 g/dL (11.5-15.4); Immature Granulocytes % 0.5 % (0-4); Lymphocytes # 0.9 K/mcL (0.6-4.6); Lymphocytes % 10.7 %; Mean Corpuscular Hemoglobin 27.9 pg (28.0-33.3); Mean Corpuscular Volume 92.9 fL (83.0-100.0); Mean Platelet Volume 12.8 fL (9.4-12.4); Monocytes # 0.4 K/mcL (0.0-1.3); Monocytes % 4.7 %; Neutrophils # 6.9 K/mcL (1.6-8.9); Platelet Count 124 K/mcL (140-400); Red Blood Count 4.95 M/mcL (3.82-4.97); Segmented Neutrophils % 83.2 %
[2016-12-07 04:11] LABS: BUN/Creatinine Ratio 19 (6-26); Blood Urea Nitrogen 10 mg/dL (7-20); Calcium 8.2 mg/dL (8.6-10.8); Carbon Dioxide 29 mEq/L (19-29); Chloride 102 mEq/L (98-109); Glucose 80 mg/dL (70-99); Magnesium 1.7 mg/dL (1.6-2.6); Osmolality,Calculated 290 (280-300); Potassium 4.5 mEq/L (3.5-4.5); Sodium 141 mEq/L (136-145); eGFR For African Americans > 60 (> 60); eGFR For Non-African Americans > 60 (> 60)
[2016-12-07 04:12] LABS: Phosphorous 5.3 mg/dL (2.3-4.7)
--- NOTE | 2016-12-07 07:53 | Anesthesia Evaluation PreOp ---
Date of Encounter: 12/07/16 Time of Encounter: 12:46 - Past History Planned Operation: Left AKA Cardiac History: Other (CAD, Cardiomyopathy, sever cardiomyopathy) Pulmonary History: Smoker, COPD, Other (Tad. Pulm Effusions) CEO NA History: Denies Any Significant HX Other Medical History: Other (Ischemic) Anesthesia History: Past Anesthesia : No Alcohol Use: heavy Drug use: none Medications and Allergies Albuterol Sulfate [Ventolin Hfa] 2 puff IH Q6HR PRN 12/06/16 [History] Budesonide/Formoterol 80/4.5 [Symbicort 80/4.5] 2 puff IH BID 12/06/16 [History ] Tiotropium [Spiriva] 18 mcg IH 0700 12/06/16 [History] clonazePAM [Klonopin] 1 mg PO BID 12/06/16 [History] 3 Allergy/AdvReac Type Severity Reaction Status Date / Time No Known Allergies Allergy Verified 12/05/16 22:51 - Meds/Allergy Pre-op Review Medications Reviewed: Yes Allergies Reviewed: Yes Beta Blockers on Current Med List: No Anesthesia Results - Labs 12/07/16 02:52 12/07/16 08:25 - Imaging Chest x-ray: report reviewed (Cardiomegaly with bilateral pleural effusions and bilateral airspace disease, likely pulmonary edema.) Anesthesia Exam O2 Sat Weight 51.975 kg O2 Sat by Pulse Oximetry 100 O2 Sat by Pulse Oximetry 100 O2 Sat by Pulse Oximetry 100 O2 Sat by Pulse Oximetry 100 O2 Sat by Pulse Oximetry 100 O2 Sat by Pulse Oximetry 100 O2 Sat by Pulse Oximetry 100 O2 Sat by Pulse Oximetry 100 O2 Sat by Pulse Oximetry 100 O2 Sat by Pulse Oximetry 100 O2 Sat by Pulse Oximetry 100 O2 Sat by Pulse Oximetry 100 O2 Sat by Pulse Oximetry 100 O2 Sat by Pulse Oximetry 100 O2 Sat by Pulse Oximetry 95 O2 Sat by Pulse Oximetry 96 O2 Sat by Pulse Oximetry 98 O2 Sat by Pulse Oximetry 100 O2 Sat by Pulse Oximetry 96 O2 Sat by Pulse Oximetry 98 O2 Sat by Pulse Oximetry 100 O2 Sat by Pulse Oximetry 99 Vital Signs Temp Pulse Resp BP Pulse Ox 98 F 119 18 134/69 93 12/05/16 22:46 12/05/16 22:46 12/05/16 22:46 12/05/16 22:46 12/05/16 22:46 Vital Signs/O2 Sat, Most Current Temp Pulse Resp BP Pulse Ox 98.0 F 84 19 108/54 100 12/07/16 11:30 12/07/16 11:33 12/07/16 11:00 12/07/16 11:00 12/07/16 11:00 Height: 5'7'' Weight: 114# NPO (# of Hours): > 8 hrs Pain Scale: 3 Pain Scale Used: Numeric (1 - 10) - HEENT Pupil (Motor): Pupils equal, EOMI Mallampati: III Teeth: Edentulous Oral Opening: Greater than 3 - CEO NA LOC: Oriented CEO NA Motor: Normal RUE, Normal LUE, Normal RLE, Normal LLE, Normal Face CEO NA Sensory: Normal: RUE, LUE, RLE, LLE, Face - Cardiac Rhythm: Regular Murmur: None JVD: No Carotid Bruit: No - Pulmonary Breath Sounds: bilateral Clear Respiratory Effort: Symmetrical Anesthesia Assess/Plan ASA Score: 4 Modified Khadar Scale for Level of Consciousness: Cooperative, oriented, and tranquil Anesthetic Plan: General Autologous Blood: Yes Monitoring Plan: Standard Monitors, A-Line Recovery Plan: ICU
[2016-12-07] MEDS ORDERED: Perflutren Lipid Microsphere 2 ML VIAL ONE (07:58)
[2016-12-07] MEDS ORDERED: Perflutren Lipid Microsphere 1.3 ML in 0.9 % Sodium Chloride 8.7 ML IVP ONE (08:00)
[2016-12-07] MEDS: Budesonide/Formoterol 80/4.5 MDI IH SCH ×2 (08:00→21:25)
[2016-12-07] MEDS ORDERED: Aminoglycoside Consult 1 EACH MC ONE (08:11)
[2016-12-07] MEDS: Furosemide 40 MG/4 ML VIAL IVP SCH ×2 (08:43→18:07)
[2016-12-07] MEDS: Folic Acid 1 MG TABLET PO SCH (08:58)
[2016-12-07] MEDS: Multivit/Ca/Min/Fe/FA 1 TAB TABLET PO SCH (08:58)
[2016-12-07] MEDS: Aspirin Enteric Coated 81 MG Tablet PO SCH (08:58)
[2016-12-07] MEDS ORDERED: Nicotine 14 MG PATCH.TD24 TD SCH (09:00)
[2016-12-07] MEDS ORDERED: Furosemide 40 MG/4 ML VIAL IVP SCH (09:00)
--- NOTE | 2016-12-07 09:10 | Internal Med Progress Note ---
Date of Encounter: 12/07/16 Time of Encounter: 09:08 - Assessment and plan (1) Ischemic necrosis of foot Current Visit: Yes Status: Acute Assessment and plan: Patient was brought from a hospital in [place] by her family- her son Avila works as PROCESS IMPROVEMENT ENGINEER at our hospital. She was noted to have left leg and foot gangrene and was being recommended to have leg amputation at the previous hospital. DEBORAH shows no blood flow to left leg and foot; left leg and foot with gangrene. lactic acid was WNL. No fever or leukocytosis. Started on broad spectrum antibiotics- Vancomycin and Zosyn for now; f/up cultures. Vascular surgery consulted and recommend left AKA today; pain control with PRN IV Morphine; Patient is at high perioperative risk, however this is an urgent procedure; plan of care d/w patient's son Avila and [id number], who are both nurses here; Patient underwent left AKA and returned to ICU, on ventilator due to failure of extubation. Will start IV Precedex and Fentanyl drips for now as patient is noted to be wide awake and uncomfortable; pulmonology consult for vent management; Patient with overall poor prognosis; family may consider Home Hospice when medically stable from acute condition; (2) Acute CHF (congestive heart failure) Current Visit: Yes Status: Acute Assessment and plan: No known h/o- CHF. Patient presented with pulmonary edema and pedal edema with elevated BNP- 3000s. Started on IV Lasix, fluid restriction, beta jewel. Echocardiogram showed severely reduced EF 15-20%, moderate diastolic dysfunction , mild-moderate AR, moderate-severe , mild pulmonary HTN. Cardiology on board, agree with current management. Repeat Echocardiogram today with Definity showed possible LV apical thrombus and recommended anticoagulation ; started on IV Heparin drip. Continue to monitor closely; Qualifiers: Congestive heart failure type: combined Qualified Code(s): I50.41 - Acute combined systolic (congestive) and diastolic (congestive) heart failure (3) Elevated troponin Current Visit: Yes Status: Acute Assessment and plan: Serial Troponin flat and adynamic, likely demand ischemia; continue current management; (4) Transaminitis Current Visit: Yes Status: Chronic Assessment and plan: likely alcoholic hepatitis; monitor closely; (5) Hypophosphatemia Current Visit: Yes Status: Resolved (6) COPD (chronic obstructive pulmonary disease) Current Visit: Yes Status: Chronic Assessment and plan: Not in acute exacerbation; continue PRN bronchodilators; Qualifiers: COPD type: emphysema Emphysema type: unspecified Qualified Code(s): J43.9 - Emphysema, unspecified (7) Peripheral artery disease Current Visit: Yes Status: Chronic (8) Alcohol abuse Current Visit: Yes Status: Chronic Assessment and plan: has been on CIWA protocol, not in active withdrawal. Currently sedated; (9) Tobacco abuse Current Visit: Yes Status: Chronic Assessment and plan: Nicotine transdermal patch; (10) LV (left ventricular) mural thrombus Current Visit: Yes Status: Acute - Subjective Interval history: Able to tell me her name and that she is in the hospital for amputation, cannot give further details; does not want to talk more, says Oh Stop and closes her eyes. Noted to be very weak and c/o- left foot pain. - Constitutional Vitals: Temp Pulse Resp BP Pulse Ox 97.6 F 81 13 106/57 100 12/07/16 03:48 12/07/16 08:33 12/07/16 08:33 12/07/16 08:33 12/07/16 08:33 General appearance: Present: cachectic, A&O X 1 (oriented to self, knows she is in a hospital, but otherwise confused), disheveled - Respiratory Respiratory exam: Present: CTAB (coarse breath sounds anterolaterally). Absent : accessory muscle use, rales, rhonchi, wheezes - Cardiovascular Cardiovascular exam: Present: RRR, +S1, +S2, tachycardia. Absent: diastolic murmur, gallop, rubs, systolic murmur - GI/Abdominal GI/Abdominal exam: Present: normal bowel sounds, soft, no peritoneal signs. Absent: distended, tenderness - Extremities Exam Extremities exam: Present: pedal edema (right lower extremity 2+ pitting edema) , warm, radial pulses palpable and symmetrical. Absent: calf tenderness, cyanotic Additional comments: left leg and foot in dressing; noted to have wet and dry gangrene with completely black leg and foot, foul smelling; very tender; - Neurological Exam Neurological exam: Present: altered, no focal deficits. Absent: pronater drift , facial droop, speech deficit - Skin Skin exam: Present: dry, intact Internal Medicine: Result - Labs CBC & Chem 7: 12/07/16 02:52 12/07/16 08:25 Labs: Short CBC 12/06/16 12/07/16 Range/Units 10:38 02:52 WBC 9.3 8.3 (4.3-11.1) K/mcL Hgb 14.3 13.8 (11.5-15.4) g/dL Hct 47.5 H 46.0 H (35.3-44.9) % Plt Count 116 L 124 L (140-400) K/mcL Neutrophils # 7.9 6.9 (1.6-8.9) K/mcL BMP 12/06/16 12/06/16 12/07/16 10:38 16:52 02:52 Sodium 141 141 Potassium 3.9 3.9 4.5 Chloride 104 102 Carbon Dioxide 27 29 BUN 11 10 Creatinine 0.51 L 0.53 L Glucose 96 80 Calcium 8.1 L 8.2 L - ABG Interpretation ABG results: PT/INR, D-dimer PT 13.8 Seconds (9.4-12.1) H 12/06/16 00:21 Consult Discharge Plan - Plan Referrals: NONE,PCP [Primary Care Provider] -
[2016-12-07 10:07] LABS: BUN/Creatinine Ratio 19 (6-26); Blood Urea Nitrogen 10 mg/dL (7-20); Calcium 8.1 mg/dL (8.6-10.8); Carbon Dioxide 29 mEq/L (19-29); Chloride 101 mEq/L (98-109); Glucose 75 mg/dL (70-99); Osmolality,Calculated 286 (280-300); Potassium 4.1 mEq/L (3.5-4.5); Sodium 139 mEq/L (136-145); eGFR For African Americans > 60 (> 60); eGFR For Non-African Americans > 60 (> 60)
--- NOTE | 2016-12-07 10:56 | Cardiology Progress Note ---
Date of Encounter: 12/07/16 Time of Encounter: 08:00 Assessment and Plan (1) Acute CHF (congestive heart failure) Current Visit: Yes Status: Acute Acute sytolic CHF. EF 15-20%. Moderate to severe aortic stenosis. Unclear if acute or chronic. Presents from [place] with son who has not seen her in 10 years. BNP 3000, CXR shows cardiomegaly and pulmonary edema. Continuing to attemp to obtain records from outside facility. Continue IV lasix. TTE reordered with definity to rule out LV thrombus. Qualifiers: Congestive heart failure type: unspecified congestive heart failure type Qualified Code(s): I50.9 - Heart failure, unspecified (2) Elevated troponin Current Visit: Yes Status: Acute Flat troponin elevation at 0.09x2 in the setting of CHF and ischemic leg. Demand ischemia. Do not suspect NSTEMI. She denies chest pain. Discussion w patient/family: The assessment and plan as outlined above was discussed with the patient and/or family members who expressed understanding and agreement. All questions were answered. Thank you for involving us in the care of your patient. Please call with any questions. Subjective Principal diagnosis: ischemic foot, acute systolic CHF Interval history: Ms. Farias is resting quietly in bed. Repeat echocardiogram with definity currently being completed. Objective Vital Signs, Last 4 Hours Pulse Resp BP Pulse Ox 12/07/16 10:28 87 18 113/54 12/07/16 09:00 83 10 114/58 100 12/07/16 08:33 81 13 106/57 100 12/07/16 08:22 81 12/07/16 08:01 16 100 12/07/16 07:47 79 9 110/59 100 General: No Apparent Distress, Other (Resting quietly, drowsy) HEENT: Atraumatic, Normocephaly, Other Neck: No JVD, Normal carotid pulses Cardiac: Reg Rate and Rhythm, Normal S1 and S2, No Murmur Lungs: Other (diminished) Neuro: Other (drowsy. Answers yes and no.) Musculoskeletal: Other (Frail elderly female, genralized weakness.) Extremities: Other (tace ankle edema, laft foot wrapped. Necrotic toes.) Results 12/07/16 02:52 12/07/16 08:25 Lab Results 12/06/16 12/06/16 12/07/16 10:38 16:52 02:52 WBC 8.3 Hgb 13.8 Hct 46.0 H Plt Count 124 L Sodium 141 Potassium 3.9 3.9 Chloride 104 Carbon Dioxide 27 BUN 11 Creatinine 0.51 L Glucose 96 Calcium 8.1 L Magnesium 2.0 1.8 12/07/16 12/07/16 02:52 08:25 WBC Hgb Hct Plt Count Sodium 141 139 Potassium 4.5 4.1 Chloride 102 101 Carbon Dioxide 29 29 BUN 10 10 Creatinine 0.53 L 0.52 L Glucose 80 75 Calcium 8.2 L 8.1 L Magnesium 1.7 Consult Discharge Plan - Plan Referrals: NONE,PCP [Primary Care Provider] -
[2016-12-07] MEDS ORDERED: *HR* Remifentanil 2 MG VIAL IVP ONE (11:24)
[2016-12-07] MEDS ORDERED: Dexamethasone 4 MG/ML VIAL ONE (11:25)
[2016-12-07] MEDS ORDERED: *HR* Rocuronium Bromide 50 MG/5 ML VIAL ONE (11:25)
[2016-12-07] MEDS ORDERED: Lidocaine -MPF 2% 2 ML VIAL ONE (11:25)
[2016-12-07] MEDS ORDERED: *HR* Succinylcholine 200 MG/10 ML VIAL IVP ONE (11:25)
[2016-12-07] MEDS ORDERED: Ondansetron 4 MG/2 ML VIAL ONE (11:25)
[2016-12-07] MEDS ORDERED: *HR* Etomidate 40 MG/20 ML VIAL IVP ONE (11:27)
[2016-12-07] MEDS ORDERED: *HR* Phenylephrine 10 MG/ML VIAL ONE (11:28)
[2016-12-07] MEDS ORDERED: Heparin 1,000 UNITS/500 mL NS 500 ML ONE (12:31)
[2016-12-07] MEDS ORDERED: Lidocaine -MPF 1% 5 ML AMPUL ONE (12:51)
[2016-12-07] MEDS ORDERED: *HR* FentaNYL (PF) 100 MCG/2 ML VIAL ONE (13:24)
--- NOTE | 2016-12-07 14:19 | Operative Note ---
Date of procedure: 12/07/16 Pre-op diagnosis: Necrotic left foot Post-op diagnosis: same Procedure: Left above-knee amputation Anesthesia: BRISSA Surgeon: Reece Fuller Estimated blood loss (cc): 25 Specimen: Left leg Condition: stable Disposition: ICU Procedure in Detail: After informed consent the patient was taken to the major operative suite placed in supine position and given adequate general anesthetic. The left leg is prepped and draped in sterile fashion utilizing Betadine solution in standard draping techniques. Timeout was taken and the patient was identified. The lateralizing marked was identified. I made a fishmouth curvilinear tracing with the ink pen outlining the incision lines on the left side. I divided the skin with a #10 blade. Subcutaneous tissues divided with electrocautery. The muscular bundles were divided with electrocautery. I isolated the vascular bundle. This was controlled with clamps and hemostatic ligatures. I isolated the sciatic nerve that had already divided into 2 trunks. Each trunk was high ligated with 0 silk. The remainder the muscular division was performed with electrocautery. I circumferentially scored the periosteum on the femur and dissected this upward. Then divided the femur with a oscillating saw. This gave smooth edges. The leg was passed off the field. Electrocautery was used for hemostasis. The wound was irrigated with copious amounts of antibiotic containing solution. The wound was closed in multiple layers with interrupted 2-0 Vicryl. Skin was reapproximated with skin earnest and the patient tolerated the procedure well. She is transferred to recovery in stable condition
[2016-12-07] MEDS ORDERED: *HR* Heparin 5,000 UNIT/ML VIAL IVP PRN ×4 (14:48→15:15)
[2016-12-07] MEDS ORDERED: *HR* Heparin 5,000 UNIT/ML VIAL IVP ONE ×2 (14:48→15:15)
[2016-12-07] MEDS ORDERED: Heparin 25,000 UNIT/500 ML D5W 25,000 UNIT/500 ML MLS IVC SCH (15:00)
[2016-12-07] MEDS ORDERED: Naloxone 0.4 MG/ML INJ IVP PRN (15:15)
[2016-12-07] MEDS ORDERED: Albuterol 2.5 MG/3 ML NEBULIZER IH PRN (15:15)
[2016-12-07] MEDS ORDERED: Acetaminophen 325 MG TABLET PO PRN (15:15)
[2016-12-07] MEDS ORDERED: Ipratropium/Albuterol Neb 3 ML IH PRN (15:15)
[2016-12-07] MEDS ORDERED: Calcium Gluconate 1,000 MG in D5% in Water 100 ML IVPB PRN (15:15)
[2016-12-07] MEDS ORDERED: *HR* LORazepam 2 MG/ML VIAL IVP PRN ×3 (15:15)
--- NOTE | 2016-12-07 15:59 | Pulmonology Consult Note ---
Date of Encounter: 12/07/16 Time of Encounter: 15:59 Assessment and Plan (1) Postoperative acute respiratory failure Current Visit: Yes Status: Acute Pleasant 76-year-old woman past medical history of COPD and active tobacco abuse who has peripheral vascular disease leading to ischemic necrosis of left foot status post [id number] amputation. Postoperatively she remains intubated which I feel is more reflection of anesthesia-related drowsiness as opposed to her acute cardiopulmonary status . I am optimistic that she will can be successfully liberated later in the day although there are significant potential complications that can arise. First and foremost with with HFrEF acutely and aortic stenosis she is at risk for wide blood pressure variations pressure variations as well as acute cardiogenic pulmonary edema. As such blood pressure should be optimally controlled systolic blood pressure around 120 however I would try to avoid aggressive overdiuresis or precipitous drop in blood pressure which could not be a manifestation of IV boluses of antihypertensives. After drowsiness related anesthesia wears off I would proceed with spontaneous breathing trial and if favorable parameters she can be extubated to BiPAP given underlying cardiopulmonary comorbidities. To this end I would avoid oversedation and at present I think that she could tolerate intermittent boluses of analgesia such as low-dose narcotic before I would start infusion of narcotic or benzodiazepine. If if she develops significant agitation and weaning parameters are poor could consider a infusion of a medication such as Precedex to control agitation while postoperative pain is managed with narcotic. Her current tidal volume issues appropriate for her height and approximate 68 mL per KG of ideal body weight. We will continue to decrease FiO2 as to keep saturation greater than 89%. In addition the standpoint underlying COPD I agree with schedule bronchodilators every 6 hours I do not think she is having acute exacerbation of COPD we will continue to monitor this closely The standpoint of possible sepsis related to lower extremity gangrene this is being managed by the primary hospitalist service and currently she is receiving antimicrobials with plan for de-escalation she is afebrile and white count are stable. She is no evidence of acute kidney injury which is also encouraging. On recent echocardiogram in addition to the valvular heart disease and systolic heart failure as mentioned she was also noted to have a possible thrombus for cardiology is evaluating this but prior to extubation formal discussion with cardiology about the timing of possible ARNOLD if considered necessary this may impact the rapidity in which extubation is pursued if they would like proceed with this while the patient is intubated. I will defer to their judgment the need for anticoagulation. The elevation in her troponin was felt to be more reflection of demand ischemia as opposed to ACS which I agree with. Overall prognosis remains poor and I understand that ongoing goals of care are being discussed discussed with the family. I had a chance to discuss her care with her son Avila (an RN here) at bedside and answered all questions that he had. (2) Acute CHF (congestive heart failure) Current Visit: Yes Status: Acute Qualifiers: Congestive heart failure type: unspecified congestive heart failure type Qualified Code(s): I50.9 - Heart failure, unspecified (3) COPD (chronic obstructive pulmonary disease) Current Visit: Yes Status: Acute Qualifiers: Emphysema type: unspecified Qualified Code(s): J43.9 - Emphysema, unspecified (4) Elevated troponin Current Visit: Yes Status: Acute (5) Gangrene of left foot Current Visit: Yes Status: Acute (6) Ischemic necrosis of foot Current Visit: Yes Status: Acute (7) Peripheral artery disease Current Visit: Yes Status: Chronic (8) Tobacco abuse Current Visit: Yes Status: Chronic (9) Aortic stenosis, severe Current Visit: Yes Status: Acute (10) Aortic stenosis Current Visit: Yes Status: Acute Qualifiers: Cardiac valve disease etiology: etiology unspecified Qualified Code(s): I35.0 - Nonrheumatic aortic (valve) stenosis History of Present Illness Consult date: 12/07/16 Requesting physician: Lissette Beltran Reason for consult: hypoxemia Chief complaint: Necrotic left leg History of present illness: 76-year-old woman past medical history of tobacco abuse COPD CHF aortic stenosis peripheral vascular disease status post [id number]-[id number] amputation today postoperatively difficult liberation because of sedation transferred to the ICU on the vent. Earlier today had preoperative cardiology evaluation and echocardiogram was performed which showed reduced ejection fraction in the context of mild troponin elevation. Also notable for severe aortic stenosis. Despite this she did very well intraoperatively. Currently hemodynamically stable with oxygen saturation at 100% on Fio2 of 40% She has left flank smoker greater than [id number] and was smoking up until the time of admission to the hospital. 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 Unclear if she has had evaluation prior this for her underlying COPD i.e. PFTs. Past Med Surg Social Fam HX - Past Medical History Medical history: COPD, peripheral artery disease (Carotid artery disease) - Social History Smoking Status: Current every day smoker Packs per day: 1 Smokeless Tobacco Status: No Alcohol use: heavy Drug use: none Medications and Allergies Albuterol Sulfate [Ventolin Hfa] 2 puff IH Q6HR PRN 12/06/16 [History] Budesonide/Formoterol 80/4.5 [Symbicort 80/4.5] 2 puff IH BID 12/06/16 [History ] Tiotropium [Spiriva] 18 mcg IH 0700 12/06/16 [History] clonazePAM [Klonopin] 1 mg PO BID 12/06/16 [History] 3 Allergy/AdvReac Type Severity Reaction Status Date / Time No Known Allergies Allergy Verified 12/05/16 22:51 All Systems: A 10-system review of systems was performed and is negative for pertinent findings except as documented above in the HPI. Physical Examination Vital Signs: Vital Signs, Last 4 Hours Temp Pulse Resp BP Pulse Ox 12/07/16 15:30 79 20 126/52 100 12/07/16 15:15 86 20 153/61 100 12/07/16 14:51 99.1 F 12/07/16 14:50 89 18 160/74 100 12/07/16 14:45 75 20 136/78 100 General appearance: no acute distress Eyes: nonicteric ENT: oropharynx dry Neck: supple Effort: normal Auscultation: bilateral: clear Cardiovascular: regular rate and rhythm Gastrointestinal: normoactive bowel sounds Integumentary: normal Extremities: no cyanosis, no edema, no clubbing Musculoskeletal: other (Left AKA noted dressing clean) normal mental status, non-focal exam, pupils equal and round mood appropriate Results - Laboratory Findings CBC and BMP: 12/07/16 02:52 12/07/16 08:25 PT/INR, D-dimer PT 13.8 Seconds (9.4-12.1) H 12/06/16 00:21 Abnormal lab findings: Abnormal lab results Hct 46.0 % (35.3-44.9) H 12/07/16 02:52 MCH 27.9 pg (28.0-33.3) L 12/07/16 02:52 MCHC 30.0 g/dL (31.6-35.5) L 12/07/16 02:52 RDW 16.0 % (11.5-14.5) H 12/07/16 02:52 Plt Count 124 K/mcL (140-400) L 12/07/16 02:52 MPV 12.8 fL (9.4-12.4) H 12/07/16 02:52 PT 13.8 Seconds (9.4-12.1) H 12/06/16 00:21 VBG pCO2 57 mmHg (41-51) H 12/06/16 00:27 VBG pO2 43 mmHg (25-40) H 12/06/16 00:27 VBG HCO3 35 mEq/L (21-27) H 12/06/16 00:27 Creatinine 0.52 mg/dL (0.57-1.11) L 12/07/16 08:25 Calcium 8.1 mg/dL (8.6-10.8) L 12/07/16 08:25 Ionized Calcium 0.79 mmol/L (1.15-1.35) L 12/06/16 10:38 Phosphorus 5.3 mg/dL (2.3-4.7) H D 12/07/16 02:52 Total Bilirubin 3.8 mg/dL (0.2-1.2) H 12/06/16 00:21 Direct Bilirubin 2.5 mg/dL (0.0-0.5) H 12/06/16 00:21 Indirect Bilirubin 1.3 mg/dL (0.0-1.2) H 12/06/16 00:21 AST 68 Units/L (5-34) H 12/06/16 00:21 ALT 115 Units/L (0-55) H 12/06/16 00:21 Alkaline Phosphatase 177 Units/L (38-126) H 12/06/16 00:21 Troponin I 0.09 ng/mL (0-0.03) H* 12/06/16 07:24 B-Natriuretic Peptide 3035 pg/mL (0-100) H 12/06/16 00:27 Serum Total Protein 4.9 g/dL (6.0-8.3) L 12/06/16 00:21 Albumin 1.9 g/dL (3.5-5.0) L 12/06/16 00:21 Albumin/Globulin Ratio 0.6 (1.1-2.2) L 12/06/16 00:21 Urine Color Dukes (Yellow) A 12/06/16 00:44 Urine Clarity Cloudy (Clear) A 12/06/16 00:44 Ur Specific Kimball > 1.030 (1.010-1.025) H 12/06/16 00:44 Urine Protein 100 mg/dL (Neg-Trace) H 12/06/16 00:44 Urine Ketones Trace mg/dL (Negative) H 12/06/16 00:44 Urine Blood Large (Negative) H 12/06/16 00:44 Urine Nitrite Positive (Negative) A 12/06/16 00:44 Urine Bilirubin Moderate (Negative) H 12/06/16 00:44 Ur Leukocyte Esterase Small (Negative) H 12/06/16 00:44 Urine Microscopic RBC 15-30 per hpf (0-3) H 12/06/16 00:44 Ur Squamous Epith Cells Many per lpf (None-Few) H 12/06/16 00:44 Ur Culture Indicated? YES (NO) A 12/06/16 00:44 - Diagnostic Findings Chest x-ray: report reviewed, image reviewed CT scan - chest: report reviewed, image reviewed - Clinical Findings Intake & Output: Intake & Output 12/06/16 12/07/16 12/07/16 23:59 07:59 15:59 Intake Total 204 / 204 610 / 610 100 / 100 Output Total 350 / 350 1300 / 1300 785 / 785 Balance -146 / -146 -690 / -690 -685 / -685 Weight 51.975 kg Consult Discharge Plan - Plan Referrals: NONE,PCP [Primary Care Provider] -
--- NOTE | 2016-12-07 16:30 | Anesthesia Evaluation Post Op ---
Date of Encounter: 12/07/16 Time of Encounter: 16:29 - Vital Signs Vital Signs: Vital Signs/O2 Sat, Most Current Temp Pulse Resp BP Pulse Ox 99.1 F 88 11 135/52 100 12/07/16 15:20 12/07/16 16:02 12/07/16 16:02 12/07/16 16:02 12/07/16 16:02 - Lungs Lungs: Clear Ascult./Percussion - Airway Airway: Intubated - Cardiovascular Regular Rate - Mental Status Mental Status: Sedated - Pain Pain Scale: 0 Pain Scale used: Numeric (1 - 10) - Nausea Vomiting Nausea Vomiting: Not Present - Hydration Hydration: NPO, Blanchard catheter - Discharge PostOp Status: Transfer Patient to floor
[2016-12-07] MEDS ORDERED: Vancomycin 1 EACH in D5% in Water (Mini-Bag+) 100 ML IVPB SCH (18:00)
[2016-12-07] MEDS: Dexmedetomidine HCl 400 MCG/100 ML MLS IVC SCH (18:28)
[2016-12-07] MEDS: FentaNYL (PF) 1,000 MCG in 0.9 % Sodium Chloride 80 ML IVC SCH (18:29)
[2016-12-07] MEDS ORDERED: Norepinephrine 4 MG in D5% in Water 250 ML IVC SCH (20:45)
--- NOTE | 2016-12-07 21:04 | Procedure Note ---
Date of procedure: 12/07/16 Pre-op diagnosis: hypotension requiring vasopressor support Post-op diagnosis: same Procedure: Right IJ Central line Anesthesia: local Surgeon: Gwendolyn Rivera Pathology: none sent Condition: critical Disposition: ICU
[2016-12-07] MEDS: Heparin 25,000 UNIT/500 ML D5W 25,000 UNIT/500 ML MLS IVC SCH (21:22)
[2016-12-08] MEDS: Piperacillin/Tazobactam 3.375 GM in D5% in Water (Mini-Bag+) 100 ML IVPB SCH ×3 (01:29→17:32)
[2016-12-08] MEDS ORDERED: Vancomycin 750 MG in D5% in Water 250 ML IVPB SCH ×2 (02:00→03:00)
[2016-12-08 04:24] LABS: Activated Partial Thrombo Time 155.1 Seconds (26.0-36.0)
[2016-12-08 04:30] LABS: Heparin anti-factor XA UFH 0.4 IU/mL (0.30-0.70)
[2016-12-08 04:52] LABS: Basophils % 0.1 %; Hemoglobin 12.8 g/dL (11.5-15.4); Immature Granulocytes % 0.4 % (0-4); Lymphocytes # 0.5 K/mcL (0.6-4.6); Lymphocytes % 6.9 %; Mean Corpuscular Hemoglobin 28.6 pg (28.0-33.3); Mean Corpuscular Volume 89.3 fL (83.0-100.0); Mean Platelet Volume 12.5 fL (9.4-12.4); Monocytes # 0.3 K/mcL (0.0-1.3); Monocytes % 4.6 %; Neutrophils # 5.9 K/mcL (1.6-8.9); Platelet Count 117 K/mcL (140-400); Red Blood Count 4.48 M/mcL (3.82-4.97)
[2016-12-08 05:05] LABS: Alanine Aminotransferase 73 Units/L (0-55); Albumin/Globulin Ratio 0.6 (1.1-2.2); Alkaline Phosphatase 146 Units/L (38-126); Aspartate Amino Transferase 52 Units/L (5-34); BUN/Creatinine Ratio 19 (6-26); BUN/Creatinine Ratio 20 (6-26); Blood Urea Nitrogen 11 mg/dL (7-20); Calcium 7.7 mg/dL (8.6-10.8); Calcium 7.8 mg/dL (8.6-10.8); Carbon Dioxide 30 mEq/L (19-29); Chloride 96 mEq/L (98-109); Globulin 2.9 g/dL (2.4-3.5); Glucose 172 mg/dL (70-99); Glucose 173 mg/dL (70-99); Magnesium 0.9 mg/dL (1.6-2.6); Osmolality,Calculated 288 (280-300); Osmolality,Calculated 289 (280-300); Potassium 3.1 mEq/L (3.5-4.5); Sodium 137 mEq/L (136-145); Total Protein 4.7 g/dL (6.0-8.3); eGFR For African Americans > 60 (> 60); eGFR For Non-African Americans > 60 (> 60)
[2016-12-08 05:06] LABS: Sodium 138 mEq/L (136-145)
[2016-12-08 05:08] LABS: Albumin 1.8 g/dL (3.5-5.0)
--- NOTE | 2016-12-08 08:25 | Arterial Study Report ---
LE Arterial Physiologic Study Patient Name:Stephanie Farias Order Number:[id number] Procedure Date:12/05/2016 Date:1940ge:76 yrs Gender:Female Lt BP:100 / mmHg Rt.BP:147 / mmHgHeart Rate: Location:[facility] ED Room #: ED5 Digital Account Executive:Linda Horton RDCS Referring MD:DO Staci Khanna MD:Reece Fuller MD Primary Indications:Necrotic foot Risk Factors Yes/No Smoking Current Impressions: 1) Right lower extremity waveform demonstrates severely diminished hemodynamics. 2) Right Ankle Brachial Index demonstrates severely occlusive disease. 1) Left lower extremity waveform demonstrates critically diminished hemodynamics. 2) Left Ankle Brachial Index demonstrates critically occlusive disease. Recommendations: Test completed on 12/05/2016 at 12:05:00 am. Critical findings reported to Dr. Zuniga-ED- in person at 12:06:00 am on 12/05/2016 by Linda Horton RDCS. Findings There was a 47 mmHg difference between the right and left brachial pressures. LE Arterial Physiologic Exam: Segmental Pressures: Right: The right posterior tibial pressure is 34 mmHg with an index of 0.23. The right dorsalis pedis pressure is 72 mmHg with an index of 0.49. PVR: Right: The PVR waveforms are severely diminished in the right . Left: The PVR waveforms are absent in the left . Prior Study: No prior study available for comparison. Segmental Pressures Side Location Pressure Index Result Right Posterior Tibial 34 0.23 Severely Diminished Right Dorsalis Pedis 72 0.49 Moderately Diminished Left Posterior Tibial 0 Severely Diminished Left Dorsalis Pedis 0 Severely Diminished Ankle Brachial Index Right Systolic Diastolic DEBORAH Brachial 147 0.49 Dorsalis Pedis 72 0.49 Posterior Tibial 34 0.23 Left Systolic Diastolic DEBORAH Brachial 100 Updated by Reece Fuller MD on 12/06/2016 10:45:05 AM with Status of Final electronically signed on 12/06/2016 10:46:27 AM with status of Final
--- NOTE | 2016-12-08 08:30 | Pulmonology Progress Note ---
<Agusto Calvin - Last Filed: 12/08/16 10:38> Date of Encounter: 12/08/16 Time of Encounter: 08:22 Assessment and Plan (1) Postoperative acute respiratory failure Current Visit: Yes Status: Acute Currently intubated and sedated ABG showed alkalosis and her vent settings were changed to decrease her RR and TV Will plan on extubation following ARNOLD per cardiology Continue supportive measures with breathing treatments (2) Acute CHF (congestive heart failure) Current Visit: Yes Status: Acute Echo demonstrated severe with EF 15-20% with possible LV thrombus Cardiology consulted, will perform ARNOLD for further evaluation of thrombus and valve Continue diuresis with Lasix and closely monitor UOP Qualifiers: Congestive heart failure type: combined Qualified Code(s): I50.41 - Acute combined systolic (congestive) and diastolic (congestive) heart failure (3) Gangrene of left foot Current Visit: Yes Status: Acute POD #1 left AKA Patient currently on Zosyn; Vanc d/patrick as blood cultures negative Vascular surgery consulted (4) LV (left ventricular) mural thrombus Current Visit: Yes Status: Acute ARNOLD as above Currently on Heparin ggt (5) Aortic stenosis, severe Current Visit: Yes Status: Acute ARNOLD as above (6) Elevated troponin Current Visit: Yes Status: Acute Adynamic trop of 0.09 x2 likely from demand ischemia She may need further investigation with cardiac cath; will defer to Cardiology (7) Hypokalemia Current Visit: Yes Status: Acute Potassium 3.1 this morning Will start on K replacement protocol and recheck BMP this afternoon (8) COPD (chronic obstructive pulmonary disease) Current Visit: Yes Status: Chronic Currently intubated Will continue on breathing treatments Plan on extubation after ARNOLD today and will plan on transitioning to NC vs. BiPAP Qualifiers: COPD type: emphysema Emphysema type: unspecified Qualified Code(s): J43.9 - Emphysema, unspecified (9) DVT prophylaxis Current Visit: Yes Status: Acute Currently on heparin ggt Protonix for GI ppx Subjective Principal diagnosis: ischemic foot, acute systolic CHF Interval history: Pt seen and examined. She remains intubated and sedated on Precedex. Does not currently respond to commands and no family at bedside. Objective PUL Vital signs: Last Vital Signs Temp 97.7 F 12/08/16 07:00 Pulse 80 12/08/16 08:00 Resp 14 12/08/16 08:00 BP 99/42 09/25/17 08:00 Pulse Ox 96 12/08/16 08:00 General appearance: no acute distress, asleep Eyes: nonicteric ENT: oropharynx moist Neck: supple Effort: normal Auscultation: bilateral: clear Percussion: bilateral: not dull Tactile fremitus: bilateral: normal Cardiovascular: irregular rhythm, other (3/6 systolic murmur) Gastrointestinal: normoactive bowel sounds, non-distended Integumentary: normal Extremities: no cyanosis, no clubbing, edema (2+) Musculoskeletal: no deformities, ROM normal unable to assess due to mental status Ventilator Settings Ventilator Settings: Ventilator Settings, Last 8 Hours Ventilator Mode A/C Ventilator Mode A/C Ventilator Mode A/C Ventilator Mode A/C Ventilator Mode A/C Ventilator Tidal Volume 400 Setting Ventilator Tidal Volume 400 Setting Ventilator Tidal Volume 400 Setting Ventilator Tidal Volume 400 Setting Ventilator Tidal Volume 400 Setting Ventilator Respiratory Rate 14 Setting Ventilator Respiratory Rate 14 Setting Ventilator Respiratory Rate 14 Setting Ventilator Respiratory Rate 14 Setting Ventilator Respiratory Rate 14 Setting Actual Respiratory Rate 14 Actual Respiratory Rate 14 Actual Respiratory Rate 14 Actual Respiratory Rate 14 Actual Respiratory Rate 14 Positive End Expiratory 5 Pressure Positive End Expiratory 5 Pressure Positive End Expiratory 5 Pressure Positive End Expiratory 5 Pressure Positive End Expiratory 5 Pressure Peak Inspiratory Airway 33 Pressure Peak Inspiratory Airway 33 Pressure Peak Inspiratory Airway 33 Pressure Peak Inspiratory Airway 33 Pressure Peak Inspiratory Airway 35 Pressure Results - Laboratory Findings CBC and BMP: 12/08/16 04:30 12/08/16 04:30 PT/INR, D-dimer PT 13.8 Seconds (9.4-12.1) H 12/06/16 00:21 Abnormal lab findings: Abnormal lab results RDW 16.0 % (11.5-14.5) H 12/08/16 04:30 Plt Count 117 K/mcL (140-400) L 12/08/16 04:30 MPV 12.5 fL (9.4-12.4) H 12/08/16 04:30 Lymphocytes # 0.5 K/mcL (0.6-4.6) L 12/08/16 04:30 PT 13.8 Seconds (9.4-12.1) H 12/06/16 00:21 APTT 155.1 Seconds (26.0-36.0) H* D 12/08/16 03:49 VBG pCO2 57 mmHg (41-51) H 12/06/16 00:27 VBG pO2 43 mmHg (25-40) H 12/06/16 00:27 VBG HCO3 35 mEq/L (21-27) H 12/06/16 00:27 Potassium 3.1 mEq/L (3.5-4.5) L 12/08/16 04:30 Chloride 96 mEq/L (98-109) L 12/08/16 04:30 Carbon Dioxide 30 mEq/L (19-29) H 12/08/16 04:30 Creatinine 0.56 mg/dL (0.57-1.11) L 12/08/16 04:30 Glucose 173 mg/dL (70-99) H 12/08/16 04:30 POC Glucose 109 (58-89) H 12/07/16 23:48 Calcium 7.7 mg/dL (8.6-10.8) L 12/08/16 04:30 Ionized Calcium 0.79 mmol/L (1.15-1.35) L 12/06/16 10:38 Phosphorus 5.3 mg/dL (2.3-4.7) H D 12/07/16 02:52 Magnesium 0.9 mg/dL (1.6-2.6) L 12/08/16 04:30 Total Bilirubin 3.0 mg/dL (0.2-1.2) H 12/08/16 04:30 Direct Bilirubin 2.5 mg/dL (0.0-0.5) H 12/06/16 00:21 Indirect Bilirubin 1.3 mg/dL (0.0-1.2) H 12/06/16 00:21 AST 52 Units/L (5-34) H 12/08/16 04:30 ALT 73 Units/L (0-55) H 12/08/16 04:30 Alkaline Phosphatase 146 Units/L (38-126) H 12/08/16 04:30 Troponin I 0.09 ng/mL (0-0.03) H* 12/06/16 07:24 B-Natriuretic Peptide 3035 pg/mL (0-100) H 12/06/16 00:27 Serum Total Protein 4.7 g/dL (6.0-8.3) L 12/08/16 04:30 Albumin 1.8 g/dL (3.5-5.0) L 12/08/16 04:30 Albumin/Globulin Ratio 0.6 (1.1-2.2) L 12/08/16 04:30 Urine Color [place] (Yellow) A 12/06/16 00:44 Urine Clarity Cloudy (Clear) A 12/06/16 00:44 Ur Specific [place] > 1.030 (1.010-1.025) H 12/06/16 00:44 Urine Protein 100 mg/dL (Neg-Trace) H 12/06/16 00:44 Urine Ketones Trace mg/dL (Negative) H 12/06/16 00:44 Urine Blood Large (Negative) H 12/06/16 00:44 Urine Nitrite Positive (Negative) A 12/06/16 00:44 Urine Bilirubin Moderate (Negative) H 12/06/16 00:44 Ur Leukocyte Esterase Small (Negative) H 12/06/16 00:44 Urine Microscopic RBC 15-30 per hpf (0-3) H 12/06/16 00:44 Ur Squamous Epith Cells Many per lpf (None-Few) H 12/06/16 00:44 Ur Culture Indicated? YES (NO) A 12/06/16 00:44 Vancomycin Trough 23.2 mcg/mL (10-20) H* 12/07/16 16:37 - Clinical Findings Intake & Output: Intake & Output 12/07/16 12/08/16 12/08/16 23:59 07:59 15:59 Intake Total 127.8 / 127.8 521 / 521 Output Total 900 / 900 525 / 525 Balance -772.2 / -772.2 -4 / -4 Consult Discharge Plan - Plan Referrals: NONE,PCP [Primary Care Provider] - <Ping Moreno - Last Filed: 12/08/16 18:55> Date of Encounter: 12/08/16 Objective PUL Vital signs: Last Vital Signs Temp 98.2 F 12/08/16 16:00 Pulse 75 12/08/16 18:31 Resp 15 12/08/16 18:31 BP 115/35 12/08/16 18:31 Pulse Ox 97 12/08/16 18:31 Ventilator Settings Ventilator Settings: Ventilator Settings, Last 8 Hours Ventilator Mode A/C Ventilator Mode A/C Ventilator Mode A/C Ventilator Mode A/C Ventilator Mode A/C Ventilator Mode A/C Ventilator Tidal Volume 350 Setting Ventilator Tidal Volume 400 Setting Ventilator Tidal Volume 400 Setting Ventilator Tidal Volume 400 Setting Ventilator Tidal Volume 400 Setting Ventilator Tidal Volume 400 Setting Ventilator Respiratory Rate 12 Setting Ventilator Respiratory Rate 12 Setting Ventilator Respiratory Rate 12 Setting Ventilator Respiratory Rate 12 Setting Ventilator Respiratory Rate 12 Setting Ventilator Respiratory Rate 12 Setting Actual Respiratory Rate 12 Actual Respiratory Rate 12 Actual Respiratory Rate 12 Actual Respiratory Rate 12 Actual Respiratory Rate 12 Actual Respiratory Rate 12 Positive End Expiratory 5 Pressure Positive End Expiratory 5 Pressure Positive End Expiratory 5 Pressure Positive End Expiratory 5 Pressure Positive End Expiratory 5 Pressure Positive End Expiratory 5 Pressure Peak Inspiratory Airway 26 Pressure Peak Inspiratory Airway 32 Pressure Peak Inspiratory Airway 32 Pressure Peak Inspiratory Airway 32 Pressure Peak Inspiratory Airway 32 Pressure Peak Inspiratory Airway 32 Pressure Results - Laboratory Findings CBC and BMP: 12/08/16 04:30 12/08/16 17:40 ABG ABG pH 7.58 pH Units (7.32-7.45) H 12/08/16 09:20 ABG pCO2 36 mmHg (35-45) 12/08/16 09:20 ABG pO2 102 mmHg (85-104) 12/08/16 09:20 ABG O2 Saturation 99 % (95-98) H 12/08/16 09:20 PT/INR, D-dimer PT 13.8 Seconds (9.4-12.1) H 12/06/16 00:21 Abnormal lab findings: Abnormal lab results RDW 16.0 % (11.5-14.5) H 12/08/16 04:30 Plt Count 117 K/mcL (140-400) L 12/08/16 04:30 MPV 12.5 fL (9.4-12.4) H 12/08/16 04:30 Lymphocytes # 0.5 K/mcL (0.6-4.6) L 12/08/16 04:30 PT 13.8 Seconds (9.4-12.1) H 12/06/16 00:21 ABG pH 7.58 pH Units (7.32-7.45) H 12/08/16 09:20 ABG HCO3 34 mEq/L (21-27) H 12/08/16 09:20 ABG Total CO2 35 mEq/L (20-26) H 12/08/16 09:20 ABG O2 Saturation 99 % (95-98) H 12/08/16 09:20 ABG Base Excess 11.2 mEq/L (-2.0 to 3.0) H 12/08/16 09:20 VBG pCO2 57 mmHg (41-51) H 12/06/16 00:27 VBG pO2 43 mmHg (25-40) H 12/06/16 00:27 VBG HCO3 35 mEq/L (21-27) H 12/06/16 00:27 Chloride 96 mEq/L (98-109) L 12/08/16 04:30 Carbon Dioxide 30 mEq/L (19-29) H 12/08/16 04:30 Creatinine 0.56 mg/dL (0.57-1.11) L 12/08/16 04:30 Glucose 173 mg/dL (70-99) H 12/08/16 04:30 POC Glucose 109 (58-89) H 12/07/16 23:48 Calcium 7.7 mg/dL (8.6-10.8) L 12/08/16 04:30 Ionized Calcium 0.79 mmol/L (1.15-1.35) L 12/06/16 10:38 Phosphorus 5.3 mg/dL (2.3-4.7) H D 12/07/16 02:52 Magnesium 1.3 mg/dL (1.6-2.6) L 12/08/16 17:40 Total Bilirubin 3.0 mg/dL (0.2-1.2) H 12/08/16 04:30 Direct Bilirubin 2.5 mg/dL (0.0-0.5) H 12/06/16 00:21 Indirect Bilirubin 1.3 mg/dL (0.0-1.2) H 12/06/16 00:21 AST 52 Units/L (5-34) H 12/08/16 04:30 ALT 73 Units/L (0-55) H 12/08/16 04:30 Alkaline Phosphatase 146 Units/L (38-126) H 12/08/16 04:30 Troponin I 0.09 ng/mL (0-0.03) H* 12/06/16 07:24 B-Natriuretic Peptide 3035 pg/mL (0-100) H 12/06/16 00:27 Serum Total Protein 4.7 g/dL (6.0-8.3) L 12/08/16 04:30 Albumin 1.8 g/dL (3.5-5.0) L 12/08/16 04:30 Albumin/Globulin Ratio 0.6 (1.1-2.2) L 12/08/16 04:30 Urine Color [place] (Yellow) A 12/06/16 00:44 Urine Clarity Cloudy (Clear) A 12/06/16 00:44 Ur Specific [place] > 1.030 (1.010-1.025) H 12/06/16 00:44 Urine Protein 100 mg/dL (Neg-Trace) H 12/06/16 00:44 Urine Ketones Trace mg/dL (Negative) H 12/06/16 00:44 Urine Blood Large (Negative) H 12/06/16 00:44 Urine Nitrite Positive (Negative) A 12/06/16 00:44 Urine Bilirubin Moderate (Negative) H 12/06/16 00:44 Ur Leukocyte Esterase Small (Negative) H 12/06/16 00:44 Urine Microscopic RBC 15-30 per hpf (0-3) H 12/06/16 00:44 Ur Squamous Epith Cells Many per lpf (None-Few) H 12/06/16 00:44 Ur Culture Indicated? YES (NO) A 12/06/16 00:44 Vancomycin Trough 23.2 mcg/mL (10-20) H* 12/07/16 16:37 - Clinical Findings Intake & Output: Intake & Output 12/08/16 12/08/16 12/08/16 07:59 15:59 23:59 Intake Total 521 / 521 1004 / 1004 4.5 / 4.5 Output Total 525 / 525 400 / 400 225 / 225 Balance -4 / -4 604 / 604 -220.5 / -220.5 - Attending Attestation I saw the patient with the resident agree with History and Physical exam findings. 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 Will resedate her tonight for ARNOLD tomorrow NECK : No JVD appreciated Pulmonary : Respiratory failure secondary to acute on chronic systolic heart failure with EF of 20% cardiology following agree to continue with diuresis Cardiac : Acute on Chronic systolic heart failure with on and off dobutamine support will try to liberate if she becomes hemodynamically stable will need to back off diuresis Nutrition/GI: PPI prophylaxis . Chronic alcoholic liver disease . EGD done today to rule out varices . There was no evidence of varices . Renal : Labs and output reviewed Heme onc : No acute issues All line were checked Disposition : Critical Code status: DNRCCA Family/POA: Jude -Son Spent 35 minutes of Critical Care
[2016-12-08] MEDS ORDERED: 0.9 % Sodium Chloride 500 ML IVC ONE (08:32)
--- NOTE | 2016-12-08 08:49 | Electrocardiograph Report ---
[address] [place], [place] [address] Test Date: 2016-12-06 Pat Name: Stephanie Farias Department: 103 Room: [facility] Gender: F Instrument Man: : 1940 Requested By: Paco Limon Order Number: [id number] Reading MD: Tara Chaudhry Measurements Intervals [place] Rate: 98 P: 56 VT: 143 QRS: -19 QRSD: 97 T: 68 QT: 384 QTc: 440 Interpretive Statements SINUS RHYTHM WITH VENTRICULAR PREMATURE COMPLEX SUPRAVENTRICULAR PREMATURE COMPLEXES LEFT ATRIAL ENLARGEMENT POSSIBLE LVH Electronically Signed On 12-07-2016 17:50:41 EDT by Tara Chaudhry
[2016-12-08] MEDS: Aspirin Enteric Coated 81 MG Tablet PO SCH (08:55)
[2016-12-08] MEDS: Folic Acid 1 MG TABLET PO SCH (08:55)
[2016-12-08] MEDS: Multivit/Ca/Min/Fe/FA 1 TAB TABLET PO SCH (08:55)
[2016-12-08] MEDS: Furosemide 40 MG/4 ML VIAL IVP SCH ×2 (09:08→17:37)
[2016-12-08 09:36] LABS: ABG Base Excess 11.2 mEq/L (-2.0 to 3.0); ABG HCO3 34 mEq/L (21-27); ABG Oxygen Saturation 99 % (95-98); ABG PCO2 36 mmHg (35-45); ABG PH 7.58 pH Units (7.32-7.45); ABG PO2 102 mmHg (85-104); ABG TCO2 35 mEq/L (20-26)
[2016-12-08 09:37] LABS: Blood Gas FiO2 40 %; Blood Gas Modality ASSIST CONTROL
--- NOTE | 2016-12-08 10:04 | Cardiology Progress Note ---
Date of Encounter: 12/08/16 Time of Encounter: 10:00 Assessment and Plan (1) Acute CHF (congestive heart failure) Current Visit: Yes Status: Acute Fairly well compensated acute on chronic combined systolic and diastolic heart failure, with continued diuresis, severe diffuse wall motion abnormalites, discussed ARNOLD with pts mitali Gramajo and ICU staff, will arrange for today before extubation, to better visual Aortic valve and left ventricular thrombus. Qualifiers: Congestive heart failure type: combined Qualified Code(s): I50.41 - Acute combined systolic (congestive) and diastolic (congestive) heart failure (2) Aortic stenosis, severe Current Visit: Yes Status: Acute ARNOLD today to eval valvular anatomy (3) Elevated troponin Current Visit: Yes Status: Acute Flat troponin elevation at 0.09x2 in the setting of CHF and ischemic leg. Demand ischemia. Do not suspect NSTEMI, however multiple wall motion abnormalities, may be candidate for LHC to define cornonary anatomy, may be revascularization candiate , will discuss timing with ICU team, pending results of ARNOLD. Discussed with pts POA (mitali Wrighty) at bedsides, agrees to proceed pending ARNOLD results. (4) Gangrene of left foot Current Visit: Yes Status: Acute Resolved post amputation., post left AKA (5) LV (left ventricular) mural thrombus Current Visit: Yes Status: Acute On systemic anticoagulation with heparin, will need snf systemic anticoagulation. Discussion w patient/family: The assessment and plan as outlined above was discussed with the patient and/or family members who expressed understanding and agreement. All questions were answered. Thank you for involving us in the care of your patient. Please call with any questions. Subjective Principal diagnosis: ischemic foot, acute systolic CHF Interval history: Pt intubated, sedated, ventilated. Hx reviewed with ICU team, pts son at bedside. Objective Vital Signs, Last 4 Hours Temp Pulse Resp BP Pulse Ox 12/08/16 08:27 18 99/42 100 12/08/16 08:16 80 12/08/16 08:00 80 14 99/42 96 12/08/16 07:00 97.7 F 12/08/16 06:12 14 128/45 100 General: Other (Intubated, sedated, ventilated. ) HEENT: Normocephaly Neck: Normal carotid pulses Cardiac: Other (irregularly irregular, sinus arrhythmia with freguent PACs, heart tones very distant. ) Lungs: No Wheeze, Rales, Rhonchi (Breath sounds decreased. ) Abdomen: Soft (cachectic. ) Skin: No rashes noted on visualized skin Extremities: Other (L AKa in surgical dressing. ) Results 12/08/16 04:30 12/08/16 04:30 Lab Results 12/07/16 12/07/16 12/08/16 08:25 19:42 03:49 WBC Hgb Hct Plt Count APTT 30.2 155.1 H* D Sodium 139 Potassium 4.1 Chloride 101 Carbon Dioxide 29 BUN 10 Creatinine 0.52 L Glucose 75 Calcium 8.1 L Magnesium Total Bilirubin AST ALT Alkaline Phosphatase 12/08/16 12/08/16 12/08/16 04:30 04:30 04:30 WBC 6.7 Hgb 12.8 Hct 40.0 Plt Count 117 L APTT Sodium 138 137 Potassium 3.1 L D 3.1 L Chloride 96 L 96 L Carbon Dioxide 30 H 30 H BUN 11 11 Creatinine 0.57 0.56 L Glucose 172 H 173 H Calcium 7.8 L 7.7 L Magnesium 0.9 L Total Bilirubin 3.0 H AST 52 H ALT 73 H Alkaline Phosphatase 146 H - Imaging and Cardiology Chest Xray: report reviewed Echo: report reviewed - VTE Documentation of Mechanical Device: Venous foot pump, device Consult Discharge Plan - Plan Referrals: NONE,PCP [Primary Care Provider] -
[2016-12-08] MEDS: Potassium Chloride 40 MEQ/200 ML BAG IVPB PRN ×3 (10:16→18:42)
[2016-12-08] MEDS: Nicotine 14 MG PATCH.TD24 TD SCH (10:32)
[2016-12-08] MEDS: Magnesium Sulfate 2 GM in D5% in Water 100 ML IVPB PRN ×2 (10:40→19:22)
[2016-12-08] MEDS: FentaNYL (PF) 1,000 MCG in 0.9 % Sodium Chloride 80 ML IVC SCH (10:49)
--- NOTE | 2016-12-08 11:15 | Event Note ---
Date of Encounter: 12/08/16 Time of Encounter: 11:12 ARNOLD ordered to evaluate aortic valve. Chart review indicates a long history of alcohol abuse. Recommend EGD to evaluate for esophageal varices prior to ARNOLD. Discussed with ICU, who will discuss with GI/surgery. Thanks, Cisco Pires DO, [facility] [phone]
[2016-12-08] MEDS: Budesonide/Formoterol 80/4.5 MDI IH SCH ×2 (11:25→19:55)
--- NOTE | 2016-12-08 13:53 | Vascular/Endovas Progress Note ---
Date of Encounter: 12/08/16 Time of Encounter: 13:30 - Assessment and plan (1) Ischemic necrosis of foot Current Visit: Yes Status: Acute POD #[address] Fuller Dressing change complete Daily dressing changes ordered Supportive care and pain control- fentanyl gtt Antibiotics- Zosyn Critical care management per pulmonary and cardiology Will plan for PT/OT when patient is medically stable and off of ventilator support I have personally performed a face to face evaluation on this patient. I have reviewed and agree with the care plan. History and Exam by me shows: The patient was seen and evaluated on morning rounds with the resident. The clinical plan was discussed with clinical nurse practitioner. The patient remains on the ventilator. The left above-knee amputation is clean and dry. She has tremendous comorbid conditions and further management will be based on her pulmonary and hepatic status as well as nutrition. We will continue to follow along closely with you. Reece Fuller MD FACS (2) Gangrene of left foot Current Visit: Yes Status: Acute POD #[address] Fuller Dressing change complete Daily dressing changes ordered Supportive care and pain control- fentanyl gtt Antibiotics- Zosyn Critical care management per pulmonary and cardiology Will plan for PT/OT when patient is medically stable and off of ventilator support - Subjective Procedure(s) Performed: Left AKA Interval history: Ms. Farias is a 76 year old female with a history of necrotic left foot. She is POD #1 from a Left AKA with Dr. Fuller. She is sedated on fentanyl and Precedex and is on ventilator support. Patient scheduled for an EGD today for a history of esophageal varicies and then will have a ARNOLD to follow with cardiology. Patient does wake up and follows simple commands. No apparent distress at this time. Vital Signs, Last 4 Hours Temp Pulse Resp BP Pulse Ox 12/08/16 13:00 90 18 115/58 100 12/08/16 12:00 90 18 111/47 100 12/08/16 11:27 18 94/46 100 12/08/16 11:24 97.9 F 12/08/16 10:00 74 18 94/46 100 - Physical Examination General: Present: No Apparent Distress, Other (resting on ventilator support) HEENT: Present: Atraumatic, Normocephaly, Trachea midline Cardiac: Present: Irregular Rhythm (NSR with PACs) Lungs: Present: Other (resting on ventilator support FiO2 of 40% and PEEP of 5) Neuro: Present: Other (Moves all extremities and follows simple commands) Vascular: Present: Amputation(s) (left AKA (dressing changed today, small amount of sanguineous drainage noted lateral aspect of incision)) Abdomen: Present: Soft, Non-tender Skin: Present: Other (See amputation notes above) - VTE Documentation of Mechanical Device: Venous foot pump, device Results 12/08/16 04:30 12/08/16 04:30 Lab Results, Last 24 hours 12/07/16 12/08/16 12/08/16 19:42 03:49 04:30 WBC Hgb Hct Plt Count APTT 30.2 155.1 H* D Sodium 138 Potassium 3.1 L D Chloride 96 L Carbon Dioxide 30 H BUN 11 Creatinine 0.57 Glucose 172 H Calcium 7.8 L Magnesium Total Bilirubin AST ALT Alkaline Phosphatase 12/08/16 12/08/16 04:30 04:30 WBC 6.7 Hgb 12.8 Hct 40.0 Plt Count 117 L APTT Sodium 137 Potassium 3.1 L Chloride 96 L Carbon Dioxide 30 H BUN 11 Creatinine 0.56 L Glucose 173 H Calcium 7.7 L Magnesium 0.9 L Total Bilirubin 3.0 H AST 52 H ALT 73 H Alkaline Phosphatase 146 H Consult Discharge Plan - Plan Referrals: NONE,PCP [Primary Care Provider] -
[2016-12-08] MEDS: Pantoprazole 40 MG VIAL IVP SCH (15:29)
[2016-12-08] MEDS: Dexmedetomidine HCl 400 MCG/100 ML MLS IVC SCH (17:31)
[2016-12-08 17:53] LABS: Magnesium 1.3 mg/dL (1.6-2.6); Potassium 3.6 mEq/L (3.5-4.5)
--- NOTE | 2016-12-08 19:29 | Gastroenterology Consult Note ---
Date of Encounter: 12/08/16 Time of Encounter: 18:00 - Assessment and plan (1) Alcohol abuse Current Visit: Yes Status: Chronic (2) Transaminitis Current Visit: Yes Status: Chronic Assessment and plan: In This patient with underlying history of EtOH abuse. Abnormal LFTs can be due to acute CHF with the hepatic congestion. Low platelets can be due to alcohol consumption. At This point we will recommend that patient get an ultrasound of the abdomen. Her LFTs. We will do an EGD to rule out varices once patient extubated and her CHF resolved if still has abnormal LFT then we will do further workup - Time Spent With Patient Total time spent is greater than 50% in coordination of care (as documented) at patient's floor/unit and/or counseling patient: GI History of Present Illness - Data of Consult Consult date: 12/08/16 Requesting Physician: Lissette Beltran MD - Consult Narrative Reason for consult: An EGD to rule out with varices History of present illness: Ms. Farias is a 76 year old female with a history of heavy I will: Abuse who is in the ICU for gangrenous left lower extremity status post amputation. There is also being seen by cardiology for acute CHF and that she needs to have a ARNOLD done but because of a history of heavy alcohol abuse and low platelet the concern the patient may have underlying cirrhosis . Currently on the vent and no history can be obtained from the patient. Per Her admitting history she does has a history of heavy alcohol abuse Past Med Surg Social Fam HX - Past Medical History Medical history: COPD, peripheral artery disease (Carotid artery disease) - Social History Smoking Status: Current every day smoker Packs per day: 1 Smokeless Tobacco Status: No Alcohol use: heavy Drug use: none Review of Systems: can Not be obtained as patient is currently on the ventilator - Constitutional Vitals: Temp Pulse Resp BP Pulse Ox 98.2 F 77 13 107/35 95 12/08/16 16:00 12/08/16 19:00 12/08/16 19:00 12/08/16 19:00 12/08/16 19:00 CONSTITUTIONAL:~ on the ventilator and intubated ~HEAD:~normocephalic.~EYES:~ mild jaundice.~NECK:~no obvious swelling.~HEART:~regular rate and rhythm, .~ LUNGS:~ETube in place.~ABDOMEN:~non distended, soft, non tander, no masses pulpable, no organomegaly.~RECTAL EXAM:~Deferred.~EXTREMITIES:~left lower extremity recent surgery with amputation just yesterday ~SKIN:~no rash or yellow discoloration.~NEUROLOGIC:~On the vent and cannot be assessed ~~~ Results - Labs CBC & Chem 7: 12/08/16 04:30 12/08/16 17:40 Labs: Last Result Calcium 7.7 mg/dL (8.6-10.8) L 12/08/16 04:30 Troponin I 0.09 ng/mL (0-0.03) H* 12/06/16 07:24 Entire Visit Hgb 12.8 g/dL (11.5-15.4) 12/08/16 04:30 Hct 40.0 % (35.3-44.9) 12/08/16 04:30 PT 13.8 Seconds (9.4-12.1) H 12/06/16 00:21 Total Bilirubin 3.0 mg/dL (0.2-1.2) H 12/08/16 04:30 AST 52 Units/L (5-34) H 12/08/16 04:30 ALT 73 Units/L (0-55) H 12/08/16 04:30 - ABG ABG results: ABG ABG pH 7.58 pH Units (7.32-7.45) H 12/08/16 09:20 ABG pCO2 36 mmHg (35-45) 12/08/16 09:20 ABG pO2 102 mmHg (85-104) 12/08/16 09:20 ABG O2 Saturation 99 % (95-98) H 12/08/16 09:20 PT/INR, D-dimer PT 13.8 Seconds (9.4-12.1) H 12/06/16 00:21 - Impressions Impressions Echocardiogram 12/06/16 03:11 Impressions: Severely reduced LV systolic function, EF 15-20%. Moderate LV diastolic dysfunction with elevated filling pressures. RV is normal in size with mild-moderate reduction in function. Mild- moderate aortic regurgitation. Moderate to severe low gradient aortic stenosis. Mild-moderate mitral regurgitation. Moderate tricuspid regurgitation. Mild pulmonary hypertension. Trivial pericardial effusion. No tamponade. A pleural effusion is noted. Left Ventricular Wall Motion: Rest Echo Findings The apex, apical inferior, mid inferior, basal inferior, apical anterior, mid anterior, basal anterior, apical septal, mid inferior septal, basal inferior septal, apical lateral, mid anterior lateral, basal anterior lateral, mid anterior septal, mid inferior lateral, basal anterior septal and basal inferior lateral fatima were hypokinetic. Findings: Study Quality * Technically adequate exam. ECG Findings * Normal sinus rhythm. Aorta * Normally sized aortic root. Aortic Valve * Aortic valve not well visualized. * Calcified aortic valve leaflets, appears moderate. * Mild-moderate aortic regurgitation. * Moderate to severe low gradient aortic stenosis; PV 2 m/s, MG 8 mmHg, DI 0.3, GENNY 0.8cm2 based on LVOT diameter of 1.8cm. Mitral Valve * No mitral stenosis. * Mildly thickened mitral valve leaflets. * Mild-moderate mitral regurgitation. Tricuspid Valve * Normal tricuspid valve structure. * Moderate tricuspid regurgitation. * Estimated RA pressure is 8 mmHg. * Estimated RVSP is 41 mmHg. * Mild pulmonary hypertension. Pulmonic Valve * Pulmonic valve is not well visualized. * No pulmonic stenosis. * No pulmonic regurgitation. Pulmonary Artery * Pulmonary artery not well visualized. Left Ventricle * LVEF 15-20%. * Normal LV size. * Moderate left ventricular diastolic dysfunction with elevated filling pressures. * Definity echo contrast was used. Right Ventricle * RV is normal in size with mild-moderate reduction in function. Left Atrium * Moderately dilated left atrium. Right Atrium * Normal right atrial size. Pericardium * There is a trivial pericardial effusion present. No tamponade. Pleural Effusion * Pleural effusion present. Interatrial Septum * No evidence of PFO by color Doppler. IVC * The IVC is not dilated. * < 50% respiratory change. Echocardiogram Limited Views 12/07/16 09:46 Impressions: There is a small, round, nonmobile filling defect seen only in the apical 2CH view with Definity. Although apex is not akinetic/aneurysmal, overall LV systolic function is severely reduced and findings are suspicious for a small LV thrombus. Left Ventricular Wall Motion: Rest Echo Findings The apex, apical inferior, mid inferior, basal inferior, apical anterior, mid anterior, basal anterior, apical septal, mid inferior septal, basal inferior septal, apical lateral, mid anterior lateral, basal anterior lateral, mid anterior septal, mid inferior lateral, basal anterior septal and basal inferior lateral fatima were hypokinetic. Findings: Study Quality * Technically adequate exam. ECG Findings * Normal sinus rhythm. Left Ventricle * Definity echo contrast was used. * There is an filling defect observed only on 2CH view that is nonmobile and characterized by smooth borders. * Severely reduced LVEF. Chest X-Ray 12/07/16 20:40 IMPRESSION: The right internal jugular venous catheter is in good position. The side hole of the nasogastric tube is at level of the GE junction and the nasogastric tube should be advanced 5-10 cm. D/ / Abelino Jain MD / Abelino Jain MD Interpreting Provider: Abelino Jain MD Chest X-Ray 12/08/16 06:09 IMPRESSION: 1. Lines and tubes as above. 2. Findings of interstitial edema with small effusions. 3. Left basilar opacity could be due to atelectasis. D/ / Gal Cota MD / Gal Cota MD Interpreting Provider: Gal Cota MD Consult Discharge Plan - Plan Referrals: NONE,PCP [Primary Care Provider] -
[2016-12-09] MEDS: Piperacillin/Tazobactam 3.375 GM in D5% in Water (Mini-Bag+) 100 ML IVPB SCH ×2 (00:59→09:18)
[2016-12-09 03:31] LABS: Basophils % 0.1 %; Eosinophils % 0.1 %; Hematocrit 40.6 % (35.3-44.9); Hemoglobin 12.8 g/dL (11.5-15.4); Immature Granulocytes % 0.4 % (0-4); Lymphocytes # 0.4 K/mcL (0.6-4.6); Lymphocytes % 5.8 %; Mean Corpuscular HGB Conc 31.5 g/dL (31.6-35.5); Mean Corpuscular Hemoglobin 28.4 pg (28.0-33.3); Mean Corpuscular Volume 90.2 fL (83.0-100.0); Mean Platelet Volume 11.9 fL (9.4-12.4); Monocytes # 0.4 K/mcL (0.0-1.3); Monocytes % 5.9 %; Neutrophils # 6.5 K/mcL (1.6-8.9); Platelet Count 122 K/mcL (140-400); Red Cell Distribution Width 16.6 % (11.5-14.5); Segmented Neutrophils % 87.7 %
[2016-12-09 03:46] LABS: Alanine Aminotransferase 71 Units/L (0-55); Alkaline Phosphatase 138 Units/L (38-126); Aspartate Amino Transferase 54 Units/L (5-34); BUN/Creatinine Ratio 19 (6-26); Blood Urea Nitrogen 10 mg/dL (7-20); Calcium 8.2 mg/dL (8.6-10.8); Carbon Dioxide 32 mEq/L (19-29); Chloride 94 mEq/L (98-109); Glucose 131 mg/dL (70-99); Osmolality,Calculated 279 (280-300); Potassium 3.6 mEq/L (3.5-4.5); Sodium 134 mEq/L (136-145); Total Protein 4.9 g/dL (6.0-8.3); eGFR For African Americans > 60 (> 60); eGFR For Non-African Americans > 60 (> 60)
[2016-12-09 03:47] LABS: Albumin/Globulin Ratio 0.6 (1.1-2.2); Globulin 3.1 g/dL (2.4-3.5)
[2016-12-09 03:48] LABS: Albumin 1.8 g/dL (3.5-5.0)
[2016-12-09] MEDS: Potassium Chloride 40 MEQ/200 ML BAG IVPB PRN (04:14)
[2016-12-09 04:19] LABS: ABG Base Excess 14.5 mEq/L (-2.0 to 3.0); ABG HCO3 41 mEq/L (21-27); ABG Oxygen Saturation 99 % (95-98); ABG PCO2 56 mmHg (35-45); ABG PH 7.47 pH Units (7.32-7.45); ABG PO2 139 mmHg (85-104); ABG TCO2 43 mEq/L (20-26)
[2016-12-09] MEDS: FentaNYL (PF) 1,000 MCG in 0.9 % Sodium Chloride 80 ML IVC SCH ×2 (04:58→22:32)
[2016-12-09] MEDS: Budesonide/Formoterol 80/4.5 MDI IH SCH ×2 (07:47→19:49)
--- NOTE | 2016-12-09 07:47 | General Surgery Progress Note ---
<Dalila Ponce - Last Filed: 12/09/16 10:08> Date of Encounter: 12/09/16 Time of Encounter: 07:35 - Assessment and Plan (1) Ischemic necrosis of foot Current Visit: Yes Status: Acute POD #2 of left of left AKA with Dr. Fuller. Dressing clean and dry currently. Surgery will sign off at this time, thank you for involving us in this patient s care, please feel free to contact us with any questions. Plan: - Continue dressing changes daily - Continue IV Zosyn - PT/OT when patient is off ventilator and medically stable -Will sign off for now, please contact with questions (2) Gangrene of left foot Current Visit: Yes Status: Acute POD #[address] Fuller Dressing change complete Daily dressing changes ordered Supportive care and pain control- fentanyl gtt Antibiotics- Zosyn Critical care management per pulmonary and cardiology Will plan for PT/OT when patient is medically stable and off of ventilator support Subjective Narrative: Ms. Farias is a 76 year old female with a history of necrotic left foot. She is POD #2 from a Left AKA with Dr. Fuller. She is sedated on fentanyl and Precedex and is on ventilator support currently still requiring Dobutamine. No acute events overnight. Objective Vital Signs - Last 8 Hours Temp Pulse Resp BP Pulse Ox 12/09/16 06:00 85 12 104/43 100 12/09/16 05:24 12 109/41 100 12/09/16 05:00 80 12 111/40 100 12/09/16 04:59 97.8 F 12/09/16 04:00 77 13 124/42 100 12/09/16 03:41 12 78/56 100 12/09/16 03:36 76 12/09/16 03:00 79 12 118/42 100 12/09/16 02:00 79 12 116/47 100 12/09/16 01:25 13 78/56 99 12/09/16 01:00 79 13 120/44 100 12/09/16 00:28 97.9 F 12/09/16 00:00 97.9 F 80 16 119/38 100 Intake and Output 12/08/16 12/08/16 12/09/16 15:59 23:59 07:59 Intake Total 1004 / 1004 558.5 / 558.5 435 / 435 Output Total 400 / 400 655 / 655 950 / 950 Balance 604 / 604 -96.5 / -96.5 -515 / -515 Intake: IV Fluids 1004 / 1004 558.5 / 558.5 435 / 435 0.9 % Sodium Chloride 500 ML @ 500 / 500 1875 mls/hr IVC .Q16M [facility] Rx#: [id number] DOBUTamine Premix 250 MG/250 ML 0 / 0 150 / 150 76 / 76 250 mg In 250 ml @ 2.5 MCG/KG/ MIN 7.796 mls/hr IVC .Q24H [facility] Rx#:[id number] PRECEDEX Premix 400 mcg In 100 4.5 / 4.5 ml @ 0.2 MCG/KG/HR 2.599 mls/hr IVC .Q24H [facility] Rx#:[id number] FentaNYL (PF) 1,000 MCG In 0.9 100 / 100 100 / 100 % Sodium Chloride 80 ML @ 50 MCG/HR 5 mls/hr IVC CONT [facility] Rx #:[id number] Heparin 25,000 UNIT/500 ML D5W 0 / 0 0 / 0 159 / 159 25,000 unit In 500 ml @ 14 UNIT /KG/HR 14.553 mls/hr IVC .Q24H [facility] Rx#:[id number] Magnesium Sulfate 2 GM In 104 / 104 104 / 104 Dextrose 5% 100 ML @ 50 mls/hr IVPB Q6H [facility] Rx#:[id number] Zosyn 3.375 GM In Dextrose 5% ( 100 / 100 100 / 100 100 / 100 Minibag+) 100 ML 100 ML @ 25 mls/hr IVPB Q8HR [facility] Rx#: [id number] Potassium Chloride 20 mEq/100 200 / 200 200 / 200 mL 40 meq In 200 ml @ 100 mls/ hr IVPB Q1H [facility] Rx#:[id number] Output: Catheter 400 / 400 575 / 575 900 / 900 Gastric Drainage 80 / 80 50 / 50 Other: Blood Glucose* 151 160 161 - General physical appearance no distress, chronically ill - Respiratory normal expansion, clear to auscultation, other (patient on mechanical ventilation) - Cardiovascular Cardiovascular exam: Present: RRR, no murmurs/rubs/gallops - Abdomen Abdomen: Present: soft, non tender. Absent: distended, guarding, rebound - Incision Incision: Present: serosanguinous (on lateral aspect of incision, rest of dressing clean and dry). Absent: erythema - Integumentary no rash - Neurologic other (currently on mechanical ventilation. patient is responding to comands ) - Musculoskeletal other (AKA of Left leg) - Labs 12/09/16 03:22 12/09/16 03:22 Diabetes panel 12/08/16 12/09/16 Range/Units 17:40 03:22 Sodium 134 L (136-145) mEq/L Potassium 3.6 3.6 (3.5-4.5) mEq/L Chloride 94 L (98-109) mEq/L Carbon Dioxide 32 H (19-29) mEq/L BUN 10 (7-20) mg/dL Creatinine 0.54 L (0.57-1.11) mg/dL Glucose 131 H (70-99) mg/dL Calcium 8.2 L (8.6-10.8) mg/dL AST 54 H (5-34) Units/L ALT 71 H (0-55) Units/L Alkaline Phosphatase 138 H (38-126) Units/L Albumin 1.8 L (3.5-5.0) g/dL Calcium panel 12/09/16 Range/Units 03:22 Calcium 8.2 L (8.6-10.8) mg/dL Albumin 1.8 L (3.5-5.0) g/dL Pituitary panel 12/08/16 12/09/16 Range/Units 17:40 03:22 Sodium 134 L (136-145) mEq/L Potassium 3.6 3.6 (3.5-4.5) mEq/L Chloride 94 L (98-109) mEq/L Carbon Dioxide 32 H (19-29) mEq/L BUN 10 (7-20) mg/dL Creatinine 0.54 L (0.57-1.11) mg/dL Glucose 131 H (70-99) mg/dL Calcium 8.2 L (8.6-10.8) mg/dL Adrenal panel 12/08/16 12/09/16 Range/Units 17:40 03:22 Sodium 134 L (136-145) mEq/L Potassium 3.6 3.6 (3.5-4.5) mEq/L Chloride 94 L (98-109) mEq/L Carbon Dioxide 32 H (19-29) mEq/L BUN 10 (7-20) mg/dL Creatinine 0.54 L (0.57-1.11) mg/dL Glucose 131 H (70-99) mg/dL Calcium 8.2 L (8.6-10.8) mg/dL Total Bilirubin 3.0 H (0.2-1.2) mg/dL AST 54 H (5-34) Units/L ALT 71 H (0-55) Units/L Alkaline Phosphatase 138 H (38-126) Units/L Albumin 1.8 L (3.5-5.0) g/dL - VTE Documentation of Mechanical Device: Intermittent pneumatic compression device Consult Discharge Plan - Plan Referrals: NONE,PCP [Primary Care Provider] - <Reece Fuller - Last Filed: 12/09/16 14:07> Date of Encounter: 12/09/16 - Assessment and Plan (1) Ischemic necrosis of foot Current Visit: Yes Status: Acute (2) Gangrene of left foot Current Visit: Yes Status: Acute Objective Vital Signs - Last 8 Hours Temp Pulse Resp BP Pulse Ox 12/09/16 13:20 13 112/39 100 12/09/16 12:00 87 16 120/42 100 12/09/16 11:36 97.9 F 12/09/16 11:20 88 12/09/16 11:05 18 113/43 100 12/09/16 11:00 85 15 111/41 99 12/09/16 10:00 87 13 109/45 100 12/09/16 09:50 14 97/40 100 12/09/16 09:00 87 15 108/44 100 12/09/16 08:00 87 14 112/45 100 12/09/16 07:56 98.4 F 12/09/16 07:47 12 113/45 100 12/09/16 07:30 87 12/09/16 07:00 87 13 110/45 100 Intake and Output 12/08/16 12/09/16 12/09/16 23:59 07:59 15:59 Intake Total 558.5 / 558.5 435 / 435 296 / 296 Output Total 655 / 655 1050 / 1050 450 / 450 Balance -96.5 / -96.5 -615 / -615 -154 / -154 Intake: IV Fluids 558.5 / 558.5 435 / 435 296 / 296 DOBUTamine Premix 250 MG/250 ML 150 / 150 76 / 76 250 mg In 250 ml @ 2.5 MCG/KG/ MIN 7.796 mls/hr IVC .Q24H [facility] Rx#:[id number] PRECEDEX Premix 400 mcg In 100 4.5 / 4.5 ml @ 0.2 MCG/KG/HR 2.599 mls/hr IVC .Q24H [facility] Rx#:[id number] FentaNYL (PF) 1,000 MCG In 0.9 100 / 100 % Sodium Chloride 80 ML @ 50 MCG/HR 5 mls/hr IVC CONT [facility] Rx #:[id number] Heparin 25,000 UNIT/500 ML D5W 0 / 0 159 / 159 96 / 96 25,000 unit In 500 ml @ 14 UNIT /KG/HR 14.553 mls/hr IVC .Q24H [facility] Rx#:[id number] Magnesium Sulfate 2 GM In 104 / 104 Dextrose 5% 100 ML @ 50 mls/hr IVPB Q6H PRN Rx#:[id number] Zosyn 3.375 GM In Dextrose 5% ( 100 / 100 100 / 100 Minibag+) 100 ML 100 ML @ 25 mls/hr IVPB Q8HR [facility] Rx#: [id number] Potassium Chloride 20 mEq/100 200 / 200 200 / 200 mL 40 meq In 200 ml @ 100 mls/ hr IVPB Q1H PRN Rx#:[id number] Output: Urine 100 / 100 Catheter 575 / 575 900 / 900 450 / 450 Gastric Drainage 80 / 80 50 / 50 Other: Blood Glucose* 160 116 103 - Labs 12/09/16 03:22 12/09/16 11:30 Diabetes panel 12/08/16 12/09/16 12/09/16 Range/Units 17:40 03:22 11:30 Sodium 134 L (136-145) mEq/L Potassium 3.6 3.6 4.0 (3.5-4.5) mEq/L Chloride 94 L (98-109) mEq/L Carbon Dioxide 32 H (19-29) mEq/L BUN 10 (7-20) mg/dL Creatinine 0.54 L (0.57-1.11) mg/dL Glucose 131 H (70-99) mg/dL Calcium 8.2 L (8.6-10.8) mg/dL AST 54 H (5-34) Units/L ALT 71 H (0-55) Units/L Alkaline Phosphatase 138 H (38-126) Units/L Albumin 1.8 L (3.5-5.0) g/dL Calcium panel 12/09/16 Range/Units 03:22 Calcium 8.2 L (8.6-10.8) mg/dL Albumin 1.8 L (3.5-5.0) g/dL Pituitary panel 12/08/16 12/09/16 12/09/16 Range/Units 17:40 03:22 11:30 Sodium 134 L (136-145) mEq/L Potassium 3.6 3.6 4.0 (3.5-4.5) mEq/L Chloride 94 L (98-109) mEq/L Carbon Dioxide 32 H (19-29) mEq/L BUN 10 (7-20) mg/dL Creatinine 0.54 L (0.57-1.11) mg/dL Glucose 131 H (70-99) mg/dL Calcium 8.2 L (8.6-10.8) mg/dL Adrenal panel 12/08/16 12/09/16 12/09/16 Range/Units 17:40 03:22 11:30 Sodium 134 L (136-145) mEq/L Potassium 3.6 3.6 4.0 (3.5-4.5) mEq/L Chloride 94 L (98-109) mEq/L Carbon Dioxide 32 H (19-29) mEq/L BUN 10 (7-20) mg/dL Creatinine 0.54 L (0.57-1.11) mg/dL Glucose 131 H (70-99) mg/dL Calcium 8.2 L (8.6-10.8) mg/dL Total Bilirubin 3.0 H (0.2-1.2) mg/dL AST 54 H (5-34) Units/L ALT 71 H (0-55) Units/L Alkaline Phosphatase 138 H (38-126) Units/L Albumin 1.8 L (3.5-5.0) g/dL - Attending Attestation I examined this patient and my medical decision-making was reviewed with the Resident Physician. I agree with the documented findings, disposition and treatment plan as described except to the extent set forth below. The patient was seen and evaluated on morning rounds with rest. She is obtunded on the ventilator. The left above-knee amputation site is intact. Her overall survival is based on her ability to come off the ventilator secondary to COPD and hepatic failure. Reece Fuller MD FACS
--- NOTE | 2016-12-09 08:37 | Pulmonology Progress Note ---
<Fracisco Padilla - Last Filed: 12/09/16 17:13> Date of Encounter: 12/09/16 Time of Encounter: 08:33 Assessment and Plan (1) Postoperative acute respiratory failure Current Visit: Yes Status: Acute currently intubated and sedated for ARNOLD today, heparin stopped for ARNOLD ABG yesterday showed alkalosis today pH 7.58->7.47, CO2 36->56, HCO3 34 ->41, BE 11.2->14.5 Will plan on extubation following ARNOLD per cardiology Continue supportive measures with breathing treatments Restraints and Vent Bundle ordered (2) Acute CHF (congestive heart failure) Current Visit: Yes Status: Acute Echo demonstrated severe with EF 15-20% with possible LV thrombus Cardiology consulted, will perform ARNOLD today between 11:30AM-Noon for further evaluation of thrombus and valve. Heparin stopped for procedure Continue diuresis with Lasix 40mg BID and closely monitor UOP Qualifiers: Congestive heart failure type: combined Qualified Code(s): I50.41 - Acute combined systolic (congestive) and diastolic (congestive) heart failure (3) Gangrene of left foot Current Visit: Yes Status: Acute POD #1 left AKA Stop Zosyn today, 48 hours and no white count, cultures negative Vascular surgery consulted - supportive care and pain control fentanyl gtt (4) LV (left ventricular) mural thrombus Current Visit: Yes Status: Acute ARNOLD as above Currently on Heparin ggt Once discharge start warfarin (5) Aortic stenosis, severe Current Visit: Yes Status: Acute ARNOLD as above (6) Elevated troponin Current Visit: Yes Status: Acute (7) Hypokalemia Current Visit: Yes Status: Acute Resolved K+ of 3.6 (8) COPD (chronic obstructive pulmonary disease) Current Visit: Yes Status: Chronic Currently intubated Will continue on breathing treatments Plan on extubation after ARNOLD today and will plan on transitioning to NC vs BiPAP Qualifiers: COPD type: emphysema Emphysema type: unspecified Qualified Code(s): J43.9 - Emphysema, unspecified (9) DVT prophylaxis Current Visit: Yes Status: Acute Currently on heparin ggt Protonix for GI ppx Subjective Principal diagnosis: ischemic foot, acute systolic CHF Objective PUL Vital signs: Last Vital Signs Temp 98.4 F 12/09/16 07:56 Pulse 87 12/09/16 08:00 Resp 14 12/09/16 08:00 BP 112/45 12/09/16 08:00 Pulse Ox 100 12/09/16 08:00 General appearance: no acute distress, asleep Eyes: nonicteric ENT: oropharynx moist Neck: supple Effort: normal Auscultation: bilateral: clear Percussion: bilateral: not dull Cardiovascular: regular rate and rhythm, irregular rhythm, murmur noted ( systolic murmur) Gastrointestinal: normoactive bowel sounds, non-distended Integumentary: normal Extremities: no cyanosis, edema (2+) Musculoskeletal: no deformities, ROM normal unable to assess due to mental status Ventilator Settings Ventilator Settings: Ventilator Settings, Last 8 Hours Ventilator Mode A/C Ventilator Mode A/C Ventilator Mode A/C Ventilator Mode A/C Ventilator Mode A/C Ventilator Mode A/C Ventilator Mode A/C Ventilator Mode A/C Ventilator Mode A/C Ventilator Mode A/C Ventilator Mode A/C Ventilator Mode A/C Ventilator Mode A/C Ventilator Tidal Volume 350 Setting Ventilator Tidal Volume 350 Setting Ventilator Tidal Volume 350 Setting Ventilator Tidal Volume 350 Setting Ventilator Tidal Volume 350 Setting Ventilator Tidal Volume 350 Setting Ventilator Tidal Volume 350 Setting Ventilator Tidal Volume 350 Setting Ventilator Tidal Volume 350 Setting Ventilator Tidal Volume 350 Setting Ventilator Tidal Volume 350 Setting Ventilator Tidal Volume 350 Setting Ventilator Tidal Volume 350 Setting Ventilator Respiratory Rate 12 Setting Ventilator Respiratory Rate 12 Setting Ventilator Respiratory Rate 12 Setting Ventilator Respiratory Rate 12 Setting Ventilator Respiratory Rate 12 Setting Ventilator Respiratory Rate 12 Setting Ventilator Respiratory Rate 12 Setting Ventilator Respiratory Rate 12 Setting Ventilator Respiratory Rate 12 Setting Ventilator Respiratory Rate 12 Setting Ventilator Respiratory Rate 12 Setting Ventilator Respiratory Rate 12 Setting Ventilator Respiratory Rate 12 Setting Actual Respiratory Rate 14 Actual Respiratory Rate 12 Actual Respiratory Rate 13 Actual Respiratory Rate 12 Actual Respiratory Rate 12 Actual Respiratory Rate 12 Actual Respiratory Rate 13 Actual Respiratory Rate 12 Actual Respiratory Rate 12 Actual Respiratory Rate 12 Actual Respiratory Rate 13 Actual Respiratory Rate 13 Positive End Expiratory 5 Pressure Positive End Expiratory 5 Pressure Positive End Expiratory 5 Pressure Positive End Expiratory 5 Pressure Positive End Expiratory 5 Pressure Positive End Expiratory 5 Pressure Positive End Expiratory 5 Pressure Positive End Expiratory 5 Pressure Positive End Expiratory 5 Pressure Positive End Expiratory 5 Pressure Positive End Expiratory 5 Pressure Positive End Expiratory 5 Pressure Positive End Expiratory 5 Pressure Peak Inspiratory Airway 27 Pressure Peak Inspiratory Airway 27 Pressure Peak Inspiratory Airway 29 Pressure Peak Inspiratory Airway 27 Pressure Peak Inspiratory Airway 28 Pressure Peak Inspiratory Airway 28 Pressure Peak Inspiratory Airway 28 Pressure Peak Inspiratory Airway 28 Pressure Peak Inspiratory Airway 28 Pressure Peak Inspiratory Airway 29 Pressure Results - Laboratory Findings CBC and BMP: 09/26/17 03:22 12/09/16 11:30 ABG ABG pH 7.47 pH Units (7.32-7.45) H 12/09/16 04:03 ABG pCO2 56 mmHg (35-45) H 12/09/16 04:03 ABG pO2 139 mmHg (85-104) H 12/09/16 04:03 ABG O2 Saturation 99 % (95-98) H 12/09/16 04:03 PT/INR, D-dimer PT 13.8 Seconds (9.4-12.1) H 12/06/16 00:21 Abnormal lab findings: Abnormal lab results MCHC 31.5 g/dL (31.6-35.5) L 12/09/16 03:22 RDW 16.6 % (11.5-14.5) H 12/09/16 03:22 Plt Count 122 K/mcL (140-400) L 12/09/16 03:22 Lymphocytes # 0.4 K/mcL (0.6-4.6) L 12/09/16 03:22 PT 13.8 Seconds (9.4-12.1) H 12/06/16 00:21 APTT 48.7 Seconds (26.0-36.0) H D 12/09/16 07:35 ABG pH 7.47 pH Units (7.32-7.45) H 12/09/16 04:03 ABG pCO2 56 mmHg (35-45) H 12/09/16 04:03 ABG pO2 139 mmHg (85-104) H 12/09/16 04:03 ABG HCO3 41 mEq/L (21-27) H 12/09/16 04:03 ABG Total CO2 43 mEq/L (20-26) H 12/09/16 04:03 ABG O2 Saturation 99 % (95-98) H 12/09/16 04:03 ABG Base Excess 14.5 mEq/L (-2.0 to 3.0) H 12/09/16 04:03 VBG pCO2 57 mmHg (41-51) H 12/06/16 00:27 VBG pO2 43 mmHg (25-40) H 12/06/16 00:27 VBG HCO3 35 mEq/L (21-27) H 12/06/16 00:27 Sodium 134 mEq/L (136-145) L 12/09/16 03:22 Chloride 94 mEq/L (98-109) L 12/09/16 03:22 Carbon Dioxide 32 mEq/L (19-29) H 12/09/16 03:22 Creatinine 0.54 mg/dL (0.57-1.11) L 12/09/16 03:22 Glucose 131 mg/dL (70-99) H 12/09/16 03:22 POC Glucose 116 (58-89) H 12/09/16 06:59 Calculated Osmolality 279 (280-300) L 12/09/16 03:22 Calcium 8.2 mg/dL (8.6-10.8) L 12/09/16 03:22 Ionized Calcium 0.79 mmol/L (1.15-1.35) L 12/06/16 10:38 Phosphorus 5.3 mg/dL (2.3-4.7) H D 12/07/16 02:52 Magnesium 1.3 mg/dL (1.6-2.6) L 12/08/16 17:40 Total Bilirubin 3.0 mg/dL (0.2-1.2) H 12/09/16 03:22 Direct Bilirubin 2.5 mg/dL (0.0-0.5) H 12/06/16 00:21 Indirect Bilirubin 1.3 mg/dL (0.0-1.2) H 12/06/16 00:21 AST 54 Units/L (5-34) H 12/09/16 03:22 ALT 71 Units/L (0-55) H 12/09/16 03:22 Alkaline Phosphatase 138 Units/L (38-126) H 12/09/16 03:22 Troponin I 0.09 ng/mL (0-0.03) H* 12/06/16 07:24 B-Natriuretic Peptide 3035 pg/mL (0-100) H 12/06/16 00:27 Serum Total Protein 4.9 g/dL (6.0-8.3) L 12/09/16 03:22 Albumin 1.8 g/dL (3.5-5.0) L 12/09/16 03:22 Albumin/Globulin Ratio 0.6 (1.1-2.2) L 12/09/16 03:22 Urine Color [place] (Yellow) A 12/06/16 00:44 Urine Clarity Cloudy (Clear) A 12/06/16 00:44 Ur Specific [place] > 1.030 (1.010-1.025) H 12/06/16 00:44 Urine Protein 100 mg/dL (Neg-Trace) H 12/06/16 00:44 Urine Ketones Trace mg/dL (Negative) H 12/06/16 00:44 Urine Blood Large (Negative) H 12/06/16 00:44 Urine Nitrite Positive (Negative) A 12/06/16 00:44 Urine Bilirubin Moderate (Negative) H 12/06/16 00:44 Ur Leukocyte Esterase Small (Negative) H 12/06/16 00:44 Urine Microscopic RBC 15-30 per hpf (0-3) H 12/06/16 00:44 Ur Squamous Epith Cells Many per lpf (None-Few) H 12/06/16 00:44 Ur Culture Indicated? YES (NO) A 12/06/16 00:44 Vancomycin Trough 23.2 mcg/mL (10-20) H* 12/07/16 16:37 - Clinical Findings Intake & Output: Intake & Output 12/08/16 12/09/16 12/09/16 23:59 07:59 15:59 Intake Total 558.5 / 558.5 435 / 435 Output Total 655 / 655 1050 / 1050 Balance -96.5 / -96.5 -615 / -615 - VTE Documentation of Mechanical Device: Intermittent pneumatic compression device Consult Discharge Plan - Plan Referrals: NONE,PCP [Primary Care Provider] - <Ping Moreno - Last Filed: 12/09/16 19:50> Date of Encounter: 12/09/16 Objective PUL Vital signs: Last Vital Signs Temp 98.4 F 12/09/16 15:48 Pulse 80 12/09/16 18:00 Resp 15 12/09/16 18:00 BP 128/46 12/09/16 18:00 Pulse Ox 100 12/09/16 18:00 Ventilator Settings Ventilator Settings: Ventilator Settings, Last 8 Hours Ventilator Mode A/C Ventilator Mode A/C Ventilator Mode A/C Ventilator Mode A/C Ventilator Mode A/C Ventilator Mode A/C Ventilator Mode A/C Ventilator Mode A/C Ventilator Mode A/C Ventilator Tidal Volume 350 Setting Ventilator Tidal Volume 350 Setting Ventilator Tidal Volume 350 Setting Ventilator Tidal Volume 350 Setting Ventilator Tidal Volume 350 Setting Ventilator Tidal Volume 350 Setting Ventilator Tidal Volume 350 Setting Ventilator Tidal Volume 350 Setting Ventilator Tidal Volume 350 Setting Ventilator Respiratory Rate 12 Setting Ventilator Respiratory Rate 12 Setting Ventilator Respiratory Rate 12 Setting Ventilator Respiratory Rate 12 Setting Ventilator Respiratory Rate 12 Setting Ventilator Respiratory Rate 12 Setting Ventilator Respiratory Rate 12 Setting Ventilator Respiratory Rate 12 Setting Ventilator Respiratory Rate 12 Setting Actual Respiratory Rate 15 Actual Respiratory Rate 15 Actual Respiratory Rate 14 Actual Respiratory Rate 12 Actual Respiratory Rate 12 Actual Respiratory Rate 12 Actual Respiratory Rate 13 Actual Respiratory Rate 14 Actual Respiratory Rate 16 Positive End Expiratory 5 Pressure Positive End Expiratory 5 Pressure Positive End Expiratory 5 Pressure Positive End Expiratory 5 Pressure Positive End Expiratory 5 Pressure Positive End Expiratory 5 Pressure Positive End Expiratory 5 Pressure Positive End Expiratory 5 Pressure Positive End Expiratory 5 Pressure Peak Inspiratory Airway 27 Pressure Peak Inspiratory Airway 27 Pressure Results - Laboratory Findings CBC and BMP: 12/09/16 03:22 12/09/16 11:30 ABG ABG pH 7.47 pH Units (7.32-7.45) H 12/09/16 04:03 ABG pCO2 56 mmHg (35-45) H 12/09/16 04:03 ABG pO2 139 mmHg (85-104) H 12/09/16 04:03 ABG O2 Saturation 99 % (95-98) H 12/09/16 04:03 PT/INR, D-dimer PT 13.8 Seconds (9.4-12.1) H 12/06/16 00:21 Abnormal lab findings: Abnormal lab results MCHC 31.5 g/dL (31.6-35.5) L 12/09/16 03:22 RDW 16.6 % (11.5-14.5) H 12/09/16 03:22 Plt Count 122 K/mcL (140-400) L 12/09/16 03:22 Lymphocytes # 0.4 K/mcL (0.6-4.6) L 12/09/16 03:22 PT 13.8 Seconds (9.4-12.1) H 12/06/16 00:21 APTT 48.7 Seconds (26.0-36.0) H D 12/09/16 07:35 ABG pH 7.47 pH Units (7.32-7.45) H 12/09/16 04:03 ABG pCO2 56 mmHg (35-45) H 12/09/16 04:03 ABG pO2 139 mmHg (85-104) H 12/09/16 04:03 ABG HCO3 41 mEq/L (21-27) H 12/09/16 04:03 ABG Total CO2 43 mEq/L (20-26) H 12/09/16 04:03 ABG O2 Saturation 99 % (95-98) H 12/09/16 04:03 ABG Base Excess 14.5 mEq/L (-2.0 to 3.0) H 12/09/16 04:03 VBG pCO2 57 mmHg (41-51) H 12/06/16 00:27 VBG pO2 43 mmHg (25-40) H 12/06/16 00:27 VBG HCO3 35 mEq/L (21-27) H 12/06/16 00:27 Sodium 134 mEq/L (136-145) L 12/09/16 03:22 Chloride 94 mEq/L (98-109) L 12/09/16 03:22 Carbon Dioxide 32 mEq/L (19-29) H 12/09/16 03:22 Creatinine 0.54 mg/dL (0.57-1.11) L 12/09/16 03:22 Glucose 131 mg/dL (70-99) H 12/09/16 03:22 POC Glucose 116 (58-89) H 12/09/16 06:59 Calculated Osmolality 279 (280-300) L 12/09/16 03:22 Calcium 8.2 mg/dL (8.6-10.8) L 12/09/16 03:22 Ionized Calcium 0.79 mmol/L (1.15-1.35) L 12/06/16 10:38 Phosphorus 5.3 mg/dL (2.3-4.7) H D 12/07/16 02:52 Magnesium 1.2 mg/dL (1.6-2.6) L 12/09/16 11:30 Total Bilirubin 3.0 mg/dL (0.2-1.2) H 12/09/16 03:22 Direct Bilirubin 2.5 mg/dL (0.0-0.5) H 12/06/16 00:21 Indirect Bilirubin 1.3 mg/dL (0.0-1.2) H 12/06/16 00:21 AST 54 Units/L (5-34) H 12/09/16 03:22 ALT 71 Units/L (0-55) H 12/09/16 03:22 Alkaline Phosphatase 138 Units/L (38-126) H 12/09/16 03:22 Troponin I 0.09 ng/mL (0-0.03) H* 12/06/16 07:24 B-Natriuretic Peptide 3035 pg/mL (0-100) H 12/06/16 00:27 Serum Total Protein 4.9 g/dL (6.0-8.3) L 12/09/16 03:22 Albumin 1.8 g/dL (3.5-5.0) L 12/09/16 03:22 Albumin/Globulin Ratio 0.6 (1.1-2.2) L 12/09/16 03:22 Urine Color [place] (Yellow) A 12/06/16 00:44 Urine Clarity Cloudy (Clear) A 12/06/16 00:44 Ur Specific [place] > 1.030 (1.010-1.025) H 12/06/16 00:44 Urine Protein 100 mg/dL (Neg-Trace) H 12/06/16 00:44 Urine Ketones Trace mg/dL (Negative) H 12/06/16 00:44 Urine Blood Large (Negative) H 12/06/16 00:44 Urine Nitrite Positive (Negative) A 12/06/16 00:44 Urine Bilirubin Moderate (Negative) H 12/06/16 00:44 Ur Leukocyte Esterase Small (Negative) H 12/06/16 00:44 Urine Microscopic RBC 15-30 per hpf (0-3) H 12/06/16 00:44 Ur Squamous Epith Cells Many per lpf (None-Few) H 12/06/16 00:44 Ur Culture Indicated? YES (NO) A 12/06/16 00:44 Vancomycin Trough 23.2 mcg/mL (10-20) H* 12/07/16 16:37 - Clinical Findings Intake & Output: Intake & Output 12/09/16 12/09/16 12/09/16 07:59 15:59 23:59 Intake Total 435 / 435 296 / 296 200 / 200 Output Total 1050 / 1050 550 / 550 Balance -615 / -615 -254 / -254 200 / 200 - Attending Attestation I saw the patient with the resident agree with History and Physical exam findings. Patient after ARNOLD didnt wake appropriately because if sedation Labs and Radiology were reviewed Ventilator data were reviewed-Respiratory alkalosis adjusted TV and RR [employer] ENGINEER: Patient when off sedation follows simple commands when off sedation NECK : No JVD appreciated Pulmonary : Respiratory failure secondary to acute on chronic systolic heart failure with EF of 20% cardiology following agree to continue with diuresis . Her ARNOLD didnt show any LV thrombus reduced LVEF and LA dilatation . Plan to extubate tomorrow. Cardiac : Acute on Chronic systolic heart failure with on and off dobutamine support will try to liberate if she becomes hemodynamically stable will need hold off diuresis Nutrition/GI: PPI prophylaxis . Chronic alcoholic liver disease . EGD done to rule out varices . There was no evidence of varices . ARNOLD done today Renal : Labs and output reviewed Heme onc : No acute issues All line were checked Disposition : Critical Code status: DNRCCA Family/POA: Jude -Son
[2016-12-09] MEDS: Furosemide 40 MG/4 ML VIAL IVP SCH ×2 (09:18→17:09)
[2016-12-09] MEDS: Nicotine 14 MG PATCH.TD24 TD SCH (09:18)
[2016-12-09] MEDS: Folic Acid 1 MG TABLET PO SCH (09:18)
[2016-12-09] MEDS: Aspirin Enteric Coated 81 MG Tablet PO SCH (09:18)
[2016-12-09] MEDS: Pantoprazole 40 MG VIAL IVP SCH (09:19)
[2016-12-09] MEDS: Multivit/Ca/Min/Fe/FA 1 TAB TABLET PO SCH (09:19)
[2016-12-09] MEDS ORDERED: Lacri-Lube 3.5 GM TUBE BOTH EYES PRN (10:56)
[2016-12-09 11:46] LABS: Magnesium 1.2 mg/dL (1.6-2.6)
--- NOTE | 2016-12-09 11:53 | Cardiology Progress Note ---
Date of Encounter: 12/09/16 Time of Encounter: 09:40 Assessment and Plan (1) Acute CHF (congestive heart failure) Current Visit: Yes Status: Acute Fairly well compensated acute on chronic combined systolic and diastolic heart failure, with continued diuresis, severe diffuse wall motion abnormalites, plan for ARNOLD today to look at aortic valve, determine if severe or critical, and if pt is candidate for valvular intervention. (2) Aortic stenosis, severe Current Visit: Yes Status: Acute ARNOLD today to eval valvular anatomy (3) Elevated troponin Current Visit: Yes Status: Acute Flat troponin elevation at 0.09x2 in the setting of CHF and ischemic leg. Demand ischemia, however with multple wall motion abnormalities will need LHC at some point, pts POA (mitali Gramajo) agrees to proceed pending ARNOLD results. (4) Gangrene of left foot Current Visit: Yes Status: Acute Resolved post amputation., post left AKA (5) LV (left ventricular) mural thrombus Current Visit: Yes Status: Acute On systemic anticoagulation with heparin, will need mcfp systemic anticoagulation with warfarin at discharge. Discussion w patient/family: The assessment and plan as outlined above was discussed with the patient and/or family members who expressed understanding and agreement. All questions were answered. Thank you for involving us in the care of your patient. Please call with any questions. Subjective Principal diagnosis: ischemic foot, acute systolic CHF Interval history: Pt intubated, sedated, ventilated. Hx reviewed with ICU team, Objective Vital Signs, Last 4 Hours Temp Pulse Resp BP Pulse Ox 12/09/16 11:36 97.9 F 12/09/16 10:00 87 13 109/45 100 12/09/16 09:50 14 97/40 100 12/09/16 09:00 87 15 108/44 100 12/09/16 08:00 87 14 112/45 100 12/09/16 07:56 98.4 F General: Other (Pt is sedated, intubated. ) HEENT: Atraumatic, Normocephaly, Mucus Membranes Moist, Other (Pt is intubated, NG in plae. ) Neck: Normal carotid pulses Cardiac: Reg Rate and Rhythm, Normal S1 and S2 Lungs: No Wheeze, Rales, Rhonchi, Other (Breath sounds decreased.) Neuro: Other (Sedated, intubatd. ) Abdomen: Soft Skin: No rashes noted on visualized skin Musculoskeletal: No Chest Wall Tenderness Extremities: Other (Left AKA, wound in surgical dressing) Results 12/09/16 03:22 12/09/16 11:30 Lab Results 12/08/16 12/08/16 12/09/16 17:40 17:40 01:06 WBC Hgb Hct Plt Count APTT 28.1 D 98.4 H D Sodium Potassium 3.6 Chloride Carbon Dioxide BUN Creatinine Glucose Calcium Magnesium 1.3 L Total Bilirubin AST ALT Alkaline Phosphatase 12/09/16 12/09/16 12/09/16 03:22 03:22 07:35 WBC 7.4 Hgb 12.8 Hct 40.6 Plt Count 122 L APTT 48.7 H D Sodium 134 L Potassium 3.6 Chloride 94 L Carbon Dioxide 32 H BUN 10 Creatinine 0.54 L Glucose 131 H Calcium 8.2 L Magnesium Total Bilirubin 3.0 H AST 54 H ALT 71 H Alkaline Phosphatase 138 H 12/09/16 11:30 WBC Hgb Hct Plt Count APTT Sodium Potassium 4.0 Chloride Carbon Dioxide BUN Creatinine Glucose Calcium Magnesium 1.2 L Total Bilirubin AST ALT Alkaline Phosphatase - VTE Documentation of Mechanical Device: Intermittent pneumatic compression device Consult Discharge Plan - Plan Referrals: NONE,PCP [Primary Care Provider] -
[2016-12-09] MEDS: Lacri-Lube 3.5 GM TUBE BOTH EYES SCH ×3 (12:48→21:34)
[2016-12-09] MEDS ORDERED: *HR* Midazolam HCl 5 MG/5 ML VIAL IVP ONE (13:14)
[2016-12-09] MEDS: Dexmedetomidine HCl 400 MCG/100 ML MLS IVC SCH (17:09)
[2016-12-09] MEDS ORDERED: *HR* Midazolam HCl 2 MG/2 ML VIAL IVP ONE (17:26)
[2016-12-09] MEDS: Chlorhexidine Rinse 15 ML MOUTHWASH MM SCH (21:35)
[2016-12-09] MEDS: Magnesium Sulfate 2 GM in D5% in Water 100 ML IVPB PRN (22:49)
[2016-12-10] MEDS: Lacri-Lube 3.5 GM TUBE BOTH EYES SCH ×3 (00:20→10:22)
[2016-12-10] MEDS: Heparin 25,000 UNIT/500 ML D5W 25,000 UNIT/500 ML MLS IVC SCH (00:20)
[2016-12-10 03:55] LABS: Basophils % 0.1 %; Eosinophils % 0.3 %; Hemoglobin 11.8 g/dL (11.5-15.4); Immature Granulocytes % 0.6 % (0-4); Lymphocytes # 0.6 K/mcL (0.6-4.6); Lymphocytes % 8.1 %; Mean Corpuscular HGB Conc 31.1 g/dL (31.6-35.5); Mean Corpuscular Volume 90.3 fL (83.0-100.0); Mean Platelet Volume 12.3 fL (9.4-12.4); Monocytes # 0.4 K/mcL (0.0-1.3); Monocytes % 5.9 %; Neutrophils # 6.1 K/mcL (1.6-8.9); Platelet Count 115 K/mcL (140-400); Red Blood Count 4.21 M/mcL (3.82-4.97); Red Cell Distribution Width 16.4 % (11.5-14.5)
[2016-12-10 04:04] LABS: BUN/Creatinine Ratio 19 (6-26); Blood Urea Nitrogen 9 mg/dL (7-20); Carbon Dioxide 36 mEq/L (19-29); Chloride 92 mEq/L (98-109); Glucose 103 mg/dL (70-99); Osmolality,Calculated 277 (280-300); Potassium 3.3 mEq/L (3.5-4.5); eGFR For African Americans > 60 (> 60); eGFR For Non-African Americans > 60 (> 60)
[2016-12-10 04:06] LABS: Sodium 134 mEq/L (136-145)
[2016-12-10] MEDS: Potassium Chloride 40 MEQ/200 ML BAG IVPB PRN (04:24)
[2016-12-10] MEDS: Budesonide/Formoterol 80/4.5 MDI IH SCH ×2 (07:34→19:53)
[2016-12-10] MEDS: Pantoprazole 40 MG VIAL IVP SCH (08:23)
[2016-12-10] MEDS: Furosemide 40 MG/4 ML VIAL IVP SCH (08:23)
[2016-12-10] MEDS: Chlorhexidine Rinse 15 ML MOUTHWASH MM SCH (08:23)
[2016-12-10] MEDS: Nicotine 14 MG PATCH.TD24 TD SCH (08:23)
--- NOTE | 2016-12-10 12:49 | Pulmonology Progress Note ---
<Fracisco Padilla - Last Filed: 12/10/16 15:36> Date of Encounter: 12/10/16 Time of Encounter: 11:00 Assessment and Plan (1) Postoperative acute respiratory failure Current Visit: Yes Status: Acute Patient extubated this morning. On 2L NC. Oxygen Saturation is 100%. AOx2. Continue supportive measures with breathing treatments (2) Acute CHF (congestive heart failure) Current Visit: Yes Status: Acute ARNOLD demonstrated no thrombus. There is a plauing of the thoracic aorta with very small, somewhat mobile plaque. Dr. Melgar will perform cath when patient neurologically intact. Lasix decreased to 40mg once daily IV. Continue to monitor UOP. Qualifiers: Congestive heart failure type: combined Qualified Code(s): I50.41 - Acute combined systolic (congestive) and diastolic (congestive) heart failure (3) Above knee amputation of left lower extremity Current Visit: Yes Status: Acute POD #2 left AKA Stop Zosyn today Vascular surgery - supportive care and pain control fentanyl gtt Consults out to PT/OT. (4) Elevated troponin Current Visit: Yes Status: Acute (5) Hypokalemia Current Visit: Yes Status: Acute Resolved K+ of 3.7 potassium chloride 40 meq in 200 mL IV Q1H PRN: K < 4 (6) DVT prophylaxis Current Visit: Yes Status: Acute Heparin 5000 units SQ Q8HCO Senna BID for constipation (7) COPD (chronic obstructive pulmonary disease) Current Visit: Yes Status: Chronic Albuterol Neb 2.5 mg IH Q2H PRN Symbicort 80/4.5 2 puff IH BIDR Duoneb 3mL IH Q4H PRN Qualifiers: COPD type: emphysema Emphysema type: unspecified Qualified Code(s): J43.9 - Emphysema, unspecified Subjective Principal diagnosis: ischemic foot, acute systolic CHF Interval history: Patient had no events overnight. Patient began extubation and was on CPAP. Currently on 2L NC at 100% oxygen saturation. Dobutamine is off. Patient on CPAP at this time. Dr. Albrecht consulted and requested stopping heparin. Discussed that when patient is neurologically appropriate he will perform a cardiac catheterization. He states the patient's EF is 30-35%. 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 Objective PUL Vital signs: Last Vital Signs Temp 97.7 F 12/10/16 11:24 Pulse 92 12/10/16 11:30 Resp 13 12/10/16 11:30 BP 134/53 12/10/16 11:30 Pulse Ox 100 12/10/16 11:30 General appearance: no acute distress, alert (Patient resting on CPAP.) Eyes: nonicteric ENT: oropharynx moist Neck: supple Effort: normal Auscultation: bilateral: clear Percussion: bilateral: not dull Cardiovascular: regular rate and rhythm Gastrointestinal: hypoactive bowel sounds Integumentary: normal Extremities: no cyanosis, edema (1+) Musculoskeletal: other (Left AKA) non-focal exam, pupils equal and round, other (Patient is able to state her name , birthdate, and location. AOx2) mood appropriate, affect normal Ventilator Settings Ventilator Settings: Ventilator Settings, Last 8 Hours Ventilator Mode CPAP Ventilator Mode CPAP Ventilator Mode A/C Ventilator Mode A/C Ventilator Mode A/C Ventilator Mode A/C Ventilator Mode A/C Ventilator Tidal Volume 350 Setting Ventilator Tidal Volume 350 Setting Ventilator Tidal Volume 350 Setting Ventilator Tidal Volume 350 Setting Ventilator Tidal Volume 350 Setting Ventilator Tidal Volume 350 Setting Ventilator Tidal Volume 350 Setting Ventilator Respiratory Rate 12 Setting Ventilator Respiratory Rate 12 Setting Ventilator Respiratory Rate 12 Setting Ventilator Respiratory Rate 12 Setting Ventilator Respiratory Rate 12 Setting Ventilator Respiratory Rate 12 Setting Ventilator Respiratory Rate 12 Setting Actual Respiratory Rate 14 Actual Respiratory Rate 16 Actual Respiratory Rate 17 Actual Respiratory Rate 21 Actual Respiratory Rate 15 Actual Respiratory Rate 25 Actual Respiratory Rate 17 Positive End Expiratory 5 Pressure Positive End Expiratory 5 Pressure Positive End Expiratory 5 Pressure Positive End Expiratory 5 Pressure Positive End Expiratory 5 Pressure Positive End Expiratory 5 Pressure Positive End Expiratory 5 Pressure Peak Inspiratory Airway 15 Pressure Peak Inspiratory Airway 20 Pressure Peak Inspiratory Airway 22 Pressure Peak Inspiratory Airway 24 Pressure Peak Inspiratory Airway 27 Pressure Peak Inspiratory Airway 29 Pressure Results - Laboratory Findings CBC and BMP: 12/10/16 03:41 12/10/16 10:21 ABG ABG pH 7.47 pH Units (7.32-7.45) H 12/09/16 04:03 ABG pCO2 56 mmHg (35-45) H 12/09/16 04:03 ABG pO2 139 mmHg (85-104) H 12/09/16 04:03 ABG O2 Saturation 99 % (95-98) H 12/09/16 04:03 PT/INR, D-dimer PT 13.8 Seconds (9.4-12.1) H 12/06/16 00:21 Abnormal lab findings: Abnormal lab results MCHC 31.1 g/dL (31.6-35.5) L 12/10/16 03:41 RDW 16.4 % (11.5-14.5) H 12/10/16 03:41 Plt Count 115 K/mcL (140-400) L 12/10/16 03:41 PT 13.8 Seconds (9.4-12.1) H 12/06/16 00:21 APTT 102.0 Seconds (26.0-36.0) H 12/10/16 03:41 ABG pH 7.47 pH Units (7.32-7.45) H 12/09/16 04:03 ABG pCO2 56 mmHg (35-45) H 12/09/16 04:03 ABG pO2 139 mmHg (85-104) H 12/09/16 04:03 ABG HCO3 41 mEq/L (21-27) H 12/09/16 04:03 ABG Total CO2 43 mEq/L (20-26) H 12/09/16 04:03 ABG O2 Saturation 99 % (95-98) H 12/09/16 04:03 ABG Base Excess 14.5 mEq/L (-2.0 to 3.0) H 12/09/16 04:03 VBG pCO2 57 mmHg (41-51) H 12/06/16 00:27 VBG pO2 43 mmHg (25-40) H 12/06/16 00:27 VBG HCO3 35 mEq/L (21-27) H 12/06/16 00:27 Sodium 134 mEq/L (136-145) L 12/10/16 03:41 Chloride 92 mEq/L (98-109) L 12/10/16 03:41 Carbon Dioxide 36 mEq/L (19-29) H 12/10/16 03:41 Creatinine 0.47 mg/dL (0.57-1.11) L 12/10/16 03:41 Glucose 103 mg/dL (70-99) H 12/10/16 03:41 POC Glucose 96 (58-89) H 12/10/16 00:13 Calculated Osmolality 277 (280-300) L 12/10/16 03:41 Calcium 8.0 mg/dL (8.6-10.8) L 12/10/16 03:41 Ionized Calcium 0.79 mmol/L (1.15-1.35) L 12/06/16 10:38 Phosphorus 5.3 mg/dL (2.3-4.7) H D 12/07/16 02:52 Total Bilirubin 3.0 mg/dL (0.2-1.2) H 12/09/16 03:22 Direct Bilirubin 2.5 mg/dL (0.0-0.5) H 12/06/16 00:21 Indirect Bilirubin 1.3 mg/dL (0.0-1.2) H 12/06/16 00:21 AST 54 Units/L (5-34) H 12/09/16 03:22 ALT 71 Units/L (0-55) H 12/09/16 03:22 Alkaline Phosphatase 138 Units/L (38-126) H 12/09/16 03:22 Troponin I 0.09 ng/mL (0-0.03) H* 12/06/16 07:24 B-Natriuretic Peptide 3035 pg/mL (0-100) H 12/06/16 00:27 Serum Total Protein 4.9 g/dL (6.0-8.3) L 12/09/16 03:22 Albumin 1.8 g/dL (3.5-5.0) L 12/09/16 03:22 Albumin/Globulin Ratio 0.6 (1.1-2.2) L 12/09/16 03:22 Urine Color Sac (Yellow) A 12/06/16 00:44 Urine Clarity Cloudy (Clear) A 12/06/16 00:44 Ur Specific [place] > 1.030 (1.010-1.025) H 12/06/16 00:44 Urine Protein 100 mg/dL (Neg-Trace) H 12/06/16 00:44 Urine Ketones Trace mg/dL (Negative) H 12/06/16 00:44 Urine Blood Large (Negative) H 12/06/16 00:44 Urine Nitrite Positive (Negative) A 12/06/16 00:44 Urine Bilirubin Moderate (Negative) H 12/06/16 00:44 Ur Leukocyte Esterase Small (Negative) H 12/06/16 00:44 Urine Microscopic RBC 15-30 per hpf (0-3) H 12/06/16 00:44 Ur Squamous Epith Cells Many per lpf (None-Few) H 12/06/16 00:44 Ur Culture Indicated? YES (NO) A 12/06/16 00:44 Vancomycin Trough 23.2 mcg/mL (10-20) H* 12/07/16 16:37 - Clinical Findings Intake & Output: Intake & Output 12/09/16 12/10/16 12/10/16 23:59 07:59 15:59 Intake Total 400 / 400 309 / 309 244 / 244 Output Total 1000 / 1000 325 / 325 300 / 300 Balance -600 / -600 -16 / -16 -56 / -56 Weight 50 kg - VTE Documentation of Mechanical Device: Intermittent pneumatic compression device Consult Discharge Plan - Plan Referrals: NONE,PCP [Primary Care Provider] - <Ping Moreno - Last Filed: 12/10/16 17:47> Date of Encounter: 12/10/16 Objective PUL Vital signs: Last Vital Signs Temp 98.1 F 12/10/16 15:35 Pulse 123 12/10/16 17:00 Resp 16 12/10/16 17:00 BP 139/76 12/10/16 17:00 Pulse Ox 91 12/10/16 17:00 Results - Laboratory Findings CBC and BMP: 12/10/16 03:41 12/10/16 10:21 ABG ABG pH 7.47 pH Units (7.32-7.45) H 12/09/16 04:03 ABG pCO2 56 mmHg (35-45) H 12/09/16 04:03 ABG pO2 139 mmHg (85-104) H 12/09/16 04:03 ABG O2 Saturation 99 % (95-98) H 12/09/16 04:03 PT/INR, D-dimer PT 13.8 Seconds (9.4-12.1) H 12/06/16 00:21 Abnormal lab findings: Abnormal lab results MCHC 31.1 g/dL (31.6-35.5) L 12/10/16 03:41 RDW 16.4 % (11.5-14.5) H 12/10/16 03:41 Plt Count 115 K/mcL (140-400) L 12/10/16 03:41 PT 13.8 Seconds (9.4-12.1) H 12/06/16 00:21 APTT 102.0 Seconds (26.0-36.0) H 12/10/16 03:41 ABG pH 7.47 pH Units (7.32-7.45) H 12/09/16 04:03 ABG pCO2 56 mmHg (35-45) H 12/09/16 04:03 ABG pO2 139 mmHg (85-104) H 12/09/16 04:03 ABG HCO3 41 mEq/L (21-27) H 12/09/16 04:03 ABG Total CO2 43 mEq/L (20-26) H 12/09/16 04:03 ABG O2 Saturation 99 % (95-98) H 12/09/16 04:03 ABG Base Excess 14.5 mEq/L (-2.0 to 3.0) H 12/09/16 04:03 VBG pCO2 57 mmHg (41-51) H 12/06/16 00:27 VBG pO2 43 mmHg (25-40) H 12/06/16 00:27 VBG HCO3 35 mEq/L (21-27) H 12/06/16 00:27 Sodium 134 mEq/L (136-145) L 12/10/16 03:41 Chloride 92 mEq/L (98-109) L 12/10/16 03:41 Carbon Dioxide 36 mEq/L (19-29) H 12/10/16 03:41 Creatinine 0.47 mg/dL (0.57-1.11) L 12/10/16 03:41 Glucose 103 mg/dL (70-99) H 12/10/16 03:41 POC Glucose 96 (58-89) H 12/10/16 00:13 Calculated Osmolality 277 (280-300) L 12/10/16 03:41 Calcium 8.0 mg/dL (8.6-10.8) L 12/10/16 03:41 Ionized Calcium 0.79 mmol/L (1.15-1.35) L 12/06/16 10:38 Phosphorus 5.3 mg/dL (2.3-4.7) H D 12/07/16 02:52 Total Bilirubin 3.0 mg/dL (0.2-1.2) H 12/09/16 03:22 Direct Bilirubin 2.5 mg/dL (0.0-0.5) H 12/06/16 00:21 Indirect Bilirubin 1.3 mg/dL (0.0-1.2) H 12/06/16 00:21 AST 54 Units/L (5-34) H 12/09/16 03:22 ALT 71 Units/L (0-55) H 12/09/16 03:22 Alkaline Phosphatase 138 Units/L (38-126) H 12/09/16 03:22 Troponin I 0.09 ng/mL (0-0.03) H* 12/06/16 07:24 B-Natriuretic Peptide 3035 pg/mL (0-100) H 12/06/16 00:27 Serum Total Protein 4.9 g/dL (6.0-8.3) L 12/09/16 03:22 Albumin 1.8 g/dL (3.5-5.0) L 12/09/16 03:22 Albumin/Globulin Ratio 0.6 (1.1-2.2) L 12/09/16 03:22 Urine Color Sac (Yellow) A 12/06/16 00:44 Urine Clarity Cloudy (Clear) A 12/06/16 00:44 Ur Specific [place] > 1.030 (1.010-1.025) H 12/06/16 00:44 Urine Protein 100 mg/dL (Neg-Trace) H 12/06/16 00:44 Urine Ketones Trace mg/dL (Negative) H 12/06/16 00:44 Urine Blood Large (Negative) H 12/06/16 00:44 Urine Nitrite Positive (Negative) A 12/06/16 00:44 Urine Bilirubin Moderate (Negative) H 12/06/16 00:44 Ur Leukocyte Esterase Small (Negative) H 12/06/16 00:44 Urine Microscopic RBC 15-30 per hpf (0-3) H 12/06/16 00:44 Ur Squamous Epith Cells Many per lpf (None-Few) H 12/06/16 00:44 Ur Culture Indicated? YES (NO) A 12/06/16 00:44 Vancomycin Trough 23.2 mcg/mL (10-20) H* 12/07/16 16:37 - Clinical Findings Intake & Output: Intake & Output 12/10/16 12/10/16 12/10/16 07:59 15:59 23:59 Intake Total 309 / 309 244 / 244 Output Total 325 / 325 525 / 525 Balance -16 / -16 -281 / -281 Weight 50 kg - Attending Attestation I saw the patient with the resident agree with History and Physical exam findings. Patient is alert following commands will extubate her today. 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 Her ARNOLD didnt show any LV thrombus reduced LVEF and LA dilatation . Will extubate today to BIPAP Cardiac : Acute on Chronic systolic heart failure will reduces the diuresis to lasix 40 mg OD she is almost euvolemic Nutrition/GI: PPI prophylaxis . Chronic alcoholic liver disease . EGD done to rule out varices . There was no evidence of varices . Renal : Labs and output reviewed Heme onc : No acute issues All line were checked will remove arterial line and will remove the central line once we get IV access. Disposition : Critical will need prolong course of rehab if she gets out of this hospital admission. Code status: DNRCCA Family/POA: Jude -Son
[2016-12-10] MEDS: *HR* Heparin 5,000 UNIT/ML VIAL SQ SCH ×2 (15:03→21:21)
[2016-12-10] MEDS: *HR* Morphine 2 MG/ML SYRINGE IVP PRN ×2 (15:09→21:21)
[2016-12-10] MEDS: Aspirin Enteric Coated 81 MG Tablet PO SCH (17:22)
[2016-12-10] MEDS: Folic Acid 1 MG TABLET PO SCH (17:23)
[2016-12-10] MEDS: Multivit/Ca/Min/Fe/FA 1 TAB TABLET PO SCH (17:23)
[2016-12-10] MEDS ORDERED: *HR* Metoprolol 5 MG/5 ML VIAL IVP PRN (17:25)
[2016-12-10] MEDS: Dexmedetomidine HCl 400 MCG/100 ML MLS IVC SCH (17:35)
[2016-12-10] MEDS: Sennosides 8.6 MG TABLET PO SCH (20:11)
[2016-12-11] MEDS: *HR* HYDROmorphone (PF) 1 MG/ML SYRINGE IVP PRN ×6 (00:02→22:18)
[2016-12-11 04:18] LABS: Basophils % 0.2 %; Eosinophils % 0.1 %; Hematocrit 40.7 % (35.3-44.9); Hemoglobin 12.6 g/dL (11.5-15.4); Immature Granulocytes % 0.5 % (0-4); Lymphocytes # 0.5 K/mcL (0.6-4.6); Lymphocytes % 5.8 %; Mean Corpuscular Hemoglobin 28.8 pg (28.0-33.3); Mean Corpuscular Volume 92.9 fL (83.0-100.0); Mean Platelet Volume 12.3 fL (9.4-12.4); Monocytes # 0.5 K/mcL (0.0-1.3); Monocytes % 5.7 %; Neutrophils # 7.4 K/mcL (1.6-8.9); Platelet Count 130 K/mcL (140-400); Red Blood Count 4.38 M/mcL (3.82-4.97); Red Cell Distribution Width 16.8 % (11.5-14.5); Segmented Neutrophils % 87.7 %
[2016-12-11 05:57] LABS: BUN/Creatinine Ratio 22 (6-26); Blood Urea Nitrogen 13 mg/dL (7-20); Calcium 8.4 mg/dL (8.6-10.8); Carbon Dioxide 29 mEq/L (19-29); Chloride 94 mEq/L (98-109); Glucose 85 mg/dL (70-99); Osmolality,Calculated 277 (280-300); Potassium 4.7 mEq/L (3.5-4.5); Sodium 134 mEq/L (136-145); eGFR For African Americans > 60 (> 60); eGFR For Non-African Americans > 60 (> 60)
[2016-12-11] MEDS: *HR* Heparin 5,000 UNIT/ML VIAL SQ SCH ×3 (06:02→20:08)
--- NOTE | 2016-12-11 07:50 | Pulmonology Progress Note ---
<Fracisco Padilla - Last Filed: 12/11/16 16:04> Date of Encounter: 12/11/16 Time of Encounter: 07:45 Assessment and Plan (1) Postoperative acute respiratory failure Current Visit: Yes Status: Acute Patient extubated yesterday On 2L NC. Bi-pap overnight due to oxygen sat 88%. AOx2. Recheck mental status today. Continue supportive measures with breathing treatments (2) Acute CHF (congestive heart failure) Current Visit: Yes Status: Acute ARNOLD demonstrated no thrombus. There is a plauing of the thoracic aorta with very small, somewhat mobile plaque. Dr. Melgar will perform cath when patient neurologically intact. Lasix decreased to 40mg once daily IV. Continue to monitor UOP. I/O: 1057/975 01/09/17 Qualifiers: Congestive heart failure type: combined Qualified Code(s): I50.41 - Acute combined systolic (congestive) and diastolic (congestive) heart failure (3) Aortic stenosis, severe Current Visit: Yes Status: Acute Patient started on coreg 3.125 mg Q12H PO. (4) Above knee amputation of left lower extremity Current Visit: Yes Status: Acute POD #3 left AKA Stopped Zosyn yesterday Vascular surgery - supportive care and pain control fentanyl gtt Consults out to PT/OT. (5) COPD (chronic obstructive pulmonary disease) Current Visit: Yes Status: Chronic Albuterol Neb 2.5 mg IH Q2H PRN Symbicort 80/4.5 2 puff IH BIDR Duoneb 3mL IH Q4H PRN Qualifiers: COPD type: emphysema Emphysema type: unspecified Qualified Code(s): J43.9 - Emphysema, unspecified (6) Hypokalemia Current Visit: Yes Status: Acute Resolved K+ of 3.7 -> K 4.7 potassium chloride 40 meq in 200 mL IV Q1H PRN: K < 4 (7) Elevated troponin Current Visit: Yes Status: Acute (8) DVT prophylaxis Current Visit: Yes Status: Acute Heparin 5000 units SQ Q8HCO Senna BID for constipation Subjective Principal diagnosis: ischemic foot, acute systolic CHF Interval history: Patient oygen saturation dropped down to 88RA last night and patient was placed on bi-pap currently at 98%. Dr. Avila's consulted discussed that when patient is neurologically appropriate he will perform a cardiac catheterization. He states the patient's EF is 30-35%. 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 Objective PUL Vital signs: Last Vital Signs Temp 98.0 F 12/11/16 07:31 Pulse 86 12/11/16 06:00 Resp 14 12/11/16 06:00 BP 118/72 12/11/16 06:00 Pulse Ox 98 12/11/16 06:00 General appearance: no acute distress, alert Eyes: nonicteric ENT: oropharynx dry Neck: supple Effort: normal Auscultation: bilateral: clear Percussion: bilateral: not dull Cardiovascular: regular rate and rhythm Gastrointestinal: normoactive bowel sounds Integumentary: normal Extremities: no cyanosis, no edema Musculoskeletal: other (Left AKA) Results - Laboratory Findings CBC and BMP: 12/11/16 04:10 12/11/16 04:45 ABG ABG pH 7.47 pH Units (7.32-7.45) H 12/09/16 04:03 ABG pCO2 56 mmHg (35-45) H 12/09/16 04:03 ABG pO2 139 mmHg (85-104) H 12/09/16 04:03 ABG O2 Saturation 99 % (95-98) H 12/09/16 04:03 PT/INR, D-dimer PT 13.8 Seconds (9.4-12.1) H 12/06/16 00:21 Abnormal lab findings: Abnormal lab results MCHC 31.0 g/dL (31.6-35.5) L 12/11/16 04:10 RDW 16.8 % (11.5-14.5) H 12/11/16 04:10 Plt Count 130 K/mcL (140-400) L 12/11/16 04:10 Lymphocytes # 0.5 K/mcL (0.6-4.6) L 12/11/16 04:10 PT 13.8 Seconds (9.4-12.1) H 12/06/16 00:21 APTT 102.0 Seconds (26.0-36.0) H 12/10/16 03:41 ABG pH 7.47 pH Units (7.32-7.45) H 12/09/16 04:03 ABG pCO2 56 mmHg (35-45) H 12/09/16 04:03 ABG pO2 139 mmHg (85-104) H 12/09/16 04:03 ABG HCO3 41 mEq/L (21-27) H 12/09/16 04:03 ABG Total CO2 43 mEq/L (20-26) H 12/09/16 04:03 ABG O2 Saturation 99 % (95-98) H 12/09/16 04:03 ABG Base Excess 14.5 mEq/L (-2.0 to 3.0) H 12/09/16 04:03 VBG pCO2 57 mmHg (41-51) H 12/06/16 00:27 VBG pO2 43 mmHg (25-40) H 12/06/16 00:27 VBG HCO3 35 mEq/L (21-27) H 12/06/16 00:27 Sodium 134 mEq/L (136-145) L 12/11/16 04:45 Potassium 4.7 mEq/L (3.5-4.5) H D 12/11/16 04:45 Chloride 94 mEq/L (98-109) L 12/11/16 04:45 Calculated Osmolality 277 (280-300) L 12/11/16 04:45 Calcium 8.4 mg/dL (8.6-10.8) L 12/11/16 04:45 Ionized Calcium 0.79 mmol/L (1.15-1.35) L 12/06/16 10:38 Phosphorus 5.3 mg/dL (2.3-4.7) H D 12/07/16 02:52 Total Bilirubin 3.0 mg/dL (0.2-1.2) H 12/09/16 03:22 Direct Bilirubin 2.5 mg/dL (0.0-0.5) H 12/06/16 00:21 Indirect Bilirubin 1.3 mg/dL (0.0-1.2) H 12/06/16 00:21 AST 54 Units/L (5-34) H 12/09/16 03:22 ALT 71 Units/L (0-55) H 12/09/16 03:22 Alkaline Phosphatase 138 Units/L (38-126) H 12/09/16 03:22 Troponin I 0.09 ng/mL (0-0.03) H* 12/06/16 07:24 B-Natriuretic Peptide 3035 pg/mL (0-100) H 12/06/16 00:27 Serum Total Protein 4.9 g/dL (6.0-8.3) L 12/09/16 03:22 Albumin 1.8 g/dL (3.5-5.0) L 12/09/16 03:22 Albumin/Globulin Ratio 0.6 (1.1-2.2) L 12/09/16 03:22 Urine Color [place] (Yellow) A 12/06/16 00:44 Urine Clarity Cloudy (Clear) A 12/06/16 00:44 Ur Specific [place] > 1.030 (1.010-1.025) H 12/06/16 00:44 Urine Protein 100 mg/dL (Neg-Trace) H 12/06/16 00:44 Urine Ketones Trace mg/dL (Negative) H 12/06/16 00:44 Urine Blood Large (Negative) H 12/06/16 00:44 Urine Nitrite Positive (Negative) A 12/06/16 00:44 Urine Bilirubin Moderate (Negative) H 12/06/16 00:44 Ur Leukocyte Esterase Small (Negative) H 12/06/16 00:44 Urine Microscopic RBC 15-30 per hpf (0-3) H 12/06/16 00:44 Ur Squamous Epith Cells Many per lpf (None-Few) H 12/06/16 00:44 Ur Culture Indicated? YES (NO) A 12/06/16 00:44 Vancomycin Trough 23.2 mcg/mL (10-20) H* 12/07/16 16:37 - Clinical Findings Intake & Output: Intake & Output 12/10/16 12/10/16 12/11/16 15:59 23:59 07:59 Intake Total 244 / 244 400 / 400 120 / 120 Output Total 525 / 525 125 / 125 Balance -281 / -281 275 / 275 95 / 95 - VTE Documentation of Mechanical Device: Intermittent pneumatic compression device Consult Discharge Plan - Plan Referrals: NONE,PCP [Primary Care Provider] - <Ping Moreno - Last Filed: 12/11/16 17:53> Date of Encounter: 12/11/16 Objective PUL Vital signs: Last Vital Signs Temp 98.5 F 12/11/16 16:04 Pulse 99 12/11/16 17:00 Resp 25 12/11/16 17:00 BP 142/88 12/11/16 17:00 Pulse Ox 98 12/11/16 17:00 Results - Laboratory Findings CBC and BMP: 12/11/16 04:10 12/11/16 04:45 ABG ABG pH 7.47 pH Units (7.32-7.45) H 12/09/16 04:03 ABG pCO2 56 mmHg (35-45) H 12/09/16 04:03 ABG pO2 139 mmHg (85-104) H 12/09/16 04:03 ABG O2 Saturation 99 % (95-98) H 12/09/16 04:03 PT/INR, D-dimer PT 13.8 Seconds (9.4-12.1) H 12/06/16 00:21 Abnormal lab findings: Abnormal lab results MCHC 31.0 g/dL (31.6-35.5) L 12/11/16 04:10 RDW 16.8 % (11.5-14.5) H 12/11/16 04:10 Plt Count 130 K/mcL (140-400) L 12/11/16 04:10 Lymphocytes # 0.5 K/mcL (0.6-4.6) L 12/11/16 04:10 PT 13.8 Seconds (9.4-12.1) H 12/06/16 00:21 APTT 102.0 Seconds (26.0-36.0) H 12/10/16 03:41 ABG pH 7.47 pH Units (7.32-7.45) H 12/09/16 04:03 ABG pCO2 56 mmHg (35-45) H 12/09/16 04:03 ABG pO2 139 mmHg (85-104) H 12/09/16 04:03 ABG HCO3 41 mEq/L (21-27) H 12/09/16 04:03 ABG Total CO2 43 mEq/L (20-26) H 12/09/16 04:03 ABG O2 Saturation 99 % (95-98) H 12/09/16 04:03 ABG Base Excess 14.5 mEq/L (-2.0 to 3.0) H 12/09/16 04:03 VBG pCO2 57 mmHg (41-51) H 12/06/16 00:27 VBG pO2 43 mmHg (25-40) H 12/06/16 00:27 VBG HCO3 35 mEq/L (21-27) H 12/06/16 00:27 Sodium 134 mEq/L (136-145) L 12/11/16 04:45 Potassium 4.7 mEq/L (3.5-4.5) H D 12/11/16 04:45 Chloride 94 mEq/L (98-109) L 12/11/16 04:45 Calculated Osmolality 277 (280-300) L 12/11/16 04:45 Calcium 8.4 mg/dL (8.6-10.8) L 12/11/16 04:45 Ionized Calcium 0.79 mmol/L (1.15-1.35) L 12/06/16 10:38 Phosphorus 5.3 mg/dL (2.3-4.7) H D 12/07/16 02:52 Total Bilirubin 3.0 mg/dL (0.2-1.2) H 12/09/16 03:22 Direct Bilirubin 2.5 mg/dL (0.0-0.5) H 12/06/16 00:21 Indirect Bilirubin 1.3 mg/dL (0.0-1.2) H 12/06/16 00:21 AST 54 Units/L (5-34) H 12/09/16 03:22 ALT 71 Units/L (0-55) H 12/09/16 03:22 Alkaline Phosphatase 138 Units/L (38-126) H 12/09/16 03:22 Troponin I 0.09 ng/mL (0-0.03) H* 12/06/16 07:24 B-Natriuretic Peptide 3035 pg/mL (0-100) H 12/06/16 00:27 Serum Total Protein 4.9 g/dL (6.0-8.3) L 12/09/16 03:22 Albumin 1.8 g/dL (3.5-5.0) L 12/09/16 03:22 Albumin/Globulin Ratio 0.6 (1.1-2.2) L 12/09/16 03:22 Urine Color [place] (Yellow) A 12/06/16 00:44 Urine Clarity Cloudy (Clear) A 12/06/16 00:44 Ur Specific [place] > 1.030 (1.010-1.025) H 12/06/16 00:44 Urine Protein 100 mg/dL (Neg-Trace) H 12/06/16 00:44 Urine Ketones Trace mg/dL (Negative) H 12/06/16 00:44 Urine Blood Large (Negative) H 12/06/16 00:44 Urine Nitrite Positive (Negative) A 12/06/16 00:44 Urine Bilirubin Moderate (Negative) H 12/06/16 00:44 Ur Leukocyte Esterase Small (Negative) H 12/06/16 00:44 Urine Microscopic RBC 15-30 per hpf (0-3) H 12/06/16 00:44 Ur Squamous Epith Cells Many per lpf (None-Few) H 12/06/16 00:44 Ur Culture Indicated? YES (NO) A 12/06/16 00:44 Vancomycin Trough 23.2 mcg/mL (10-20) H* 12/07/16 16:37 - Clinical Findings Intake & Output: Intake & Output 12/11/16 12/11/16 12/11/16 07:59 15:59 23:59 Intake Total 120 / 120 Output Total / 265 / 265 300 / 300 Balance 95 / 95 -265 / -265 -300 / -300 - Attending Attestation i saw the patient with the resident agree with History and Physical exam findings. Patient is alert following commands will extubate her today. 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 Appreciate cardiology consult will start on Coreg 3.125 mg BID .Will follow cardiology recs as she might LHC at some point and for optimization for outpatient regimen. Nutrition/GI: PPI prophylaxis . Chronic alcoholic liver disease . EGD done to rule out varices . There was no evidence of varices . Renal : Labs and output reviewed Heme onc : No acute issues All line were checked no evidence of infection. Disposition : Transfer to the floor . Will need rehab Code status: DNRCCA Family/POA: Jude -Son
[2016-12-11] MEDS ORDERED: Furosemide 40 MG/4 ML VIAL IVP SCH (09:00)
[2016-12-11] MEDS: Nicotine 14 MG PATCH.TD24 TD SCH (09:17)
[2016-12-11] MEDS: Budesonide/Formoterol 80/4.5 MDI IH SCH ×2 (10:46→22:19)
[2016-12-11] MEDS ORDERED: 0.9 % Sodium Chloride 500 ML IVC ONE (11:17)
[2016-12-11] MEDS: Aspirin Enteric Coated 81 MG Tablet PO SCH (11:40)
[2016-12-11] MEDS: Sennosides 8.6 MG TABLET PO SCH ×2 (11:40→20:08)
[2016-12-11] MEDS: Multivit/Ca/Min/Fe/FA 1 TAB TABLET PO SCH (11:40)
[2016-12-11] MEDS: Folic Acid 1 MG TABLET PO SCH (11:40)
[2016-12-11] MEDS: Dexmedetomidine HCl 400 MCG/100 ML MLS IVC SCH (16:48)
--- NOTE | 2016-12-11 18:50 | Cardiology Progress Note ---
Date of Encounter: 12/15/16 Time of Encounter: 18:30 Assessment and Plan (1) Acute CHF (congestive heart failure) Current Visit: Yes Status: Acute Now well compensated acute on chronic combined systolic and diastolic heart failure, with continued diuresis, discussed with ICU team, will begin low dose beta blockaide (Coreg 3.125 mg bid). If bp tolerates, add LOGAN in AM. Qualifiers: Congestive heart failure type: combined Qualified Code(s): I50.41 - Acute combined systolic (congestive) and diastolic (congestive) heart failure (2) Aortic stenosis, severe Current Visit: Yes Status: Acute Moderate to severe , not a candidate for intervention, appears to be compensating fairly well. (3) Elevated troponin Current Visit: Yes Status: Acute Flat troponin elevation at 0.09x2 consistent with demand ischemia, no new ischemic changes on EKG, would manage medically for now, does not appear a candidate for invasive strategy. (4) Gangrene of left foot Current Visit: Yes Status: Acute Resolved post amputation., post left AKA Discussion w patient/family: The assessment and plan as outlined above was discussed with the patient and/or family members who expressed understanding and agreement. All questions were answered. Thank you for involving us in the care of your patient. Please call with any questions. Subjective Principal diagnosis: ischemic foot, acute systolic CHF Interval history: Pt sleepy, arouses slowly, orientated x 2, denies chest pain, drifts back to sleep during exam. Objective Vital Signs, Last 4 Hours Temp Pulse Resp BP Pulse Ox 12/11/16 18:00 96 15 132/68 100 12/11/16 17:00 99 25 142/88 98 12/11/16 16:04 98.5 F 12/11/16 16:00 92 12 143/82 100 12/11/16 15:00 100 14 123/113 100 General: Other (somnolent but arousable) HEENT: Atraumatic Neck: Normal carotid pulses Cardiac: Normal S1 and S2, Other (2/6 DIANNA right sternal border. ) Lungs: Other (Breath sounds decreased, scattered course rhonchi) Abdomen: Soft Skin: No rashes noted on visualized skin Musculoskeletal: No Chest Wall Tenderness Extremities: No Edema, Other (left AKA) Results 12/14/16 14:43 12/14/16 14:43 Lab Results 12/11/16 12/11/16 04:10 04:45 WBC 8.5 Hgb 12.6 Hct 40.7 Plt Count 130 L Sodium 134 L Potassium 4.7 H D Chloride 94 L Carbon Dioxide 29 BUN 13 Creatinine 0.60 Glucose 85 Calcium 8.4 L - Imaging and Cardiology Echo: report reviewed, image reviewed - VTE Documentation of Mechanical Device: Intermittent pneumatic compression device Consult Discharge Plan - Plan Referrals: NONE,PCP [Primary Care Provider] -
[2016-12-12] MEDS: *HR* HYDROmorphone (PF) 1 MG/ML SYRINGE IVP PRN ×2 (02:10→14:23)
[2016-12-12 04:41] LABS: Basophils % 0.1 %; Eosinophils % 0.4 %; Hematocrit 43.4 % (35.3-44.9); Hemoglobin 13.1 g/dL (11.5-15.4); Immature Granulocytes % 0.5 % (0-4); Lymphocytes # 0.6 K/mcL (0.6-4.6); Lymphocytes % 7.7 %; Mean Corpuscular HGB Conc 30.2 g/dL (31.6-35.5); Mean Corpuscular Hemoglobin 28.7 pg (28.0-33.3); Mean Corpuscular Volume 95.2 fL (83.0-100.0); Mean Platelet Volume 12.1 fL (9.4-12.4); Monocytes # 0.5 K/mcL (0.0-1.3); Monocytes % 6.4 %; Neutrophils # 6.9 K/mcL (1.6-8.9); Platelet Count 141 K/mcL (140-400); Red Blood Count 4.56 M/mcL (3.82-4.97); Red Cell Distribution Width 16.9 % (11.5-14.5); Segmented Neutrophils % 84.9 %
[2016-12-12 04:55] LABS: BUN/Creatinine Ratio 30 (6-26); Blood Urea Nitrogen 16 mg/dL (7-20); Calcium 8.8 mg/dL (8.6-10.8); Carbon Dioxide 34 mEq/L (19-29); Chloride 93 mEq/L (98-109); Glucose 72 mg/dL (70-99); Osmolality,Calculated 282 (280-300); Sodium 136 mEq/L (136-145); eGFR For African Americans > 60 (> 60); eGFR For Non-African Americans > 60 (> 60)
[2016-12-12 04:56] LABS: Potassium 4.2 mEq/L (3.5-4.5)
[2016-12-12] MEDS: *HR* Heparin 5,000 UNIT/ML VIAL SQ SCH ×3 (05:19→22:29)
[2016-12-12] MEDS: Folic Acid 1 MG TABLET PO SCH (07:55)
[2016-12-12] MEDS: Multivit/Ca/Min/Fe/FA 1 TAB TABLET PO SCH (07:55)
[2016-12-12] MEDS: Aspirin Enteric Coated 81 MG Tablet PO SCH (07:55)
[2016-12-12] MEDS: Sennosides 8.6 MG TABLET PO SCH ×2 (07:55→22:29)
[2016-12-12] MEDS: Nicotine 14 MG PATCH.TD24 TD SCH (07:55)
--- NOTE | 2016-12-12 08:05 | Pulmonology Progress Note ---
<Fracisco Padilla - Last Filed: 12/12/16 12:17> Date of Encounter: 12/12/16 Time of Encounter: 08:02 Assessment and Plan (1) Postoperative acute respiratory failure Current Visit: Yes Status: Acute Pt on 2L NC. AOx2. Recheck mental status today. Continue supportive measures with breathing treatments Patient is tolerating PO. She was ordered a beer to have if she agreed to eat her lunch. Nutrition requested vitamins for patient including Vitamin C, Thiamine, and Zinc. (2) Acute CHF (congestive heart failure) Current Visit: Yes Status: Acute ARNOLD demonstrated no thrombus. There is a plauqing of the thoracic aorta with very small, somewhat mobile plaque. Dr. Melgar will perform cath when patient neurologically intact. Lasix decreased to 40mg once daily IV. Continue to monitor UOP. I/O: 120/740 - intake was oral Qualifiers: Congestive heart failure type: combined Qualified Code(s): I50.41 - Acute combined systolic (congestive) and diastolic (congestive) heart failure (3) Aortic stenosis, severe Current Visit: Yes Status: Acute Patient started on coreg 3.125 mg Q12H PO. metoprolol IV stopped. Cardiology continue diuresis, begin low dose beta blockaide (Coreg 3.125mg BID) . Add LOGAN inhibitor in AM. Moderate to severe , not a candidate for intervention, appears to be compensating fairly well. Manage medically. (4) Above knee amputation of left lower extremity Current Visit: Yes Status: Acute POD #4 left AKA Stopped Zosyn yesterday Vascular surgery - supportive care and pain control fentanyl gtt Seen by PT/OT. (5) COPD (chronic obstructive pulmonary disease) Current Visit: Yes Status: Chronic Albuterol Neb 2.5 mg IH Q2H PRN Symbicort 80/4.5 2 puff IH BIDR Duoneb 3mL IH Q4H PRN Qualifiers: COPD type: emphysema Emphysema type: unspecified Qualified Code(s): J43.9 - Emphysema, unspecified (6) Hypokalemia Current Visit: Yes Status: Acute Resolved K+ of K 4.7 -> 4.2 potassium chloride 40 meq in 200 mL IV Q1H PRN: K < 4 (7) Elevated troponin Current Visit: Yes Status: Acute (8) DVT prophylaxis Current Visit: Yes Status: Acute Heparin 5000 units SQ Q8HCO Senna BID for constipation Subjective Principal diagnosis: ischemic foot, acute systolic CHF Interval history: Patient oygen saturation dropped down to 88RA last night and patient was placed on bi-pap currently at 98%. Dr. Avila's consulted discussed that when patient is neurologically appropriate he will perform a cardiac catheterization. He states the patient's EF is 30-35%. 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 Objective PUL Vital signs: Last Vital Signs Temp 98.2 F 12/12/16 07:00 Pulse 112 12/12/16 07:38 Resp 24 12/12/16 07:00 BP 135/66 12/12/16 07:00 Pulse Ox 98 12/12/16 07:00 General appearance: no acute distress, alert Results - Laboratory Findings CBC and BMP: 12/12/16 04:30 12/12/16 04:30 ABG ABG pH 7.47 pH Units (7.32-7.45) H 12/09/16 04:03 ABG pCO2 56 mmHg (35-45) H 12/09/16 04:03 ABG pO2 139 mmHg (85-104) H 12/09/16 04:03 ABG O2 Saturation 99 % (95-98) H 12/09/16 04:03 PT/INR, D-dimer PT 13.8 Seconds (9.4-12.1) H 12/06/16 00:21 Abnormal lab findings: Abnormal lab results MCHC 30.2 g/dL (31.6-35.5) L 12/12/16 04:30 RDW 16.9 % (11.5-14.5) H 12/12/16 04:30 PT 13.8 Seconds (9.4-12.1) H 12/06/16 00:21 APTT 102.0 Seconds (26.0-36.0) H 12/10/16 03:41 ABG pH 7.47 pH Units (7.32-7.45) H 12/09/16 04:03 ABG pCO2 56 mmHg (35-45) H 12/09/16 04:03 ABG pO2 139 mmHg (85-104) H 12/09/16 04:03 ABG HCO3 41 mEq/L (21-27) H 12/09/16 04:03 ABG Total CO2 43 mEq/L (20-26) H 12/09/16 04:03 ABG O2 Saturation 99 % (95-98) H 12/09/16 04:03 ABG Base Excess 14.5 mEq/L (-2.0 to 3.0) H 12/09/16 04:03 VBG pCO2 57 mmHg (41-51) H 12/06/16 00:27 VBG pO2 43 mmHg (25-40) H 12/06/16 00:27 VBG HCO3 35 mEq/L (21-27) H 12/06/16 00:27 Chloride 93 mEq/L (98-109) L 12/12/16 04:30 Carbon Dioxide 34 mEq/L (19-29) H 12/12/16 04:30 Creatinine 0.54 mg/dL (0.57-1.11) L 12/12/16 04:30 BUN/Creatinine Ratio 30 (6-26) H 12/12/16 04:30 POC Glucose 90 (58-89) H 12/11/16 23:37 Ionized Calcium 0.79 mmol/L (1.15-1.35) L 12/06/16 10:38 Phosphorus 5.3 mg/dL (2.3-4.7) H D 12/07/16 02:52 Total Bilirubin 3.0 mg/dL (0.2-1.2) H 12/09/16 03:22 Direct Bilirubin 2.5 mg/dL (0.0-0.5) H 12/06/16 00:21 Indirect Bilirubin 1.3 mg/dL (0.0-1.2) H 12/06/16 00:21 AST 54 Units/L (5-34) H 12/09/16 03:22 ALT 71 Units/L (0-55) H 12/09/16 03:22 Alkaline Phosphatase 138 Units/L (38-126) H 12/09/16 03:22 Troponin I 0.09 ng/mL (0-0.03) H* 12/06/16 07:24 B-Natriuretic Peptide 3035 pg/mL (0-100) H 12/06/16 00:27 Serum Total Protein 4.9 g/dL (6.0-8.3) L 12/09/16 03:22 Albumin 1.8 g/dL (3.5-5.0) L 12/09/16 03:22 Albumin/Globulin Ratio 0.6 (1.1-2.2) L 12/09/16 03:22 Urine Color Bib[place] (Yellow) A 12/06/16 00:44 Urine Clarity Cloudy (Clear) A 12/06/16 00:44 Ur Specific [place] > 1.030 (1.010-1.025) H 12/06/16 00:44 Urine Protein 100 mg/dL (Neg-Trace) H 12/06/16 00:44 Urine Ketones Trace mg/dL (Negative) H 12/06/16 00:44 Urine Blood Large (Negative) H 12/06/16 00:44 Urine Nitrite Positive (Negative) A 12/06/16 00:44 Urine Bilirubin Moderate (Negative) H 12/06/16 00:44 Ur Leukocyte Esterase Small (Negative) H 12/06/16 00:44 Urine Microscopic RBC 15-30 per hpf (0-3) H 12/06/16 00:44 Ur Squamous Epith Cells Many per lpf (None-Few) H 12/06/16 00:44 Ur Culture Indicated? YES (NO) A 12/06/16 00:44 Vancomycin Trough 23.2 mcg/mL (10-20) H* 12/07/16 16:37 - Clinical Findings Intake & Output: Intake & Output 12/11/16 12/12/16 12/12/16 23:59 07:59 15:59 Intake Total 120 / 120 Output Total 450 / 450 75 / 75 Balance -450 / -450 45 / 45 - VTE Documentation of Mechanical Device: Intermittent pneumatic compression device Consult Discharge Plan - Plan Referrals: NONE,PCP [Primary Care Provider] - <Ping Moreno - Last Filed: 12/12/16 18:39> Date of Encounter: 12/12/16 Objective PUL Vital signs: Last Vital Signs Temp 98.0 F 12/12/16 16:36 Pulse 93 12/12/16 16:36 Resp 16 12/12/16 16:36 BP 123/68 12/12/16 16:36 Pulse Ox 96 12/12/16 16:36 Results - Laboratory Findings CBC and BMP: 12/12/16 04:30 12/12/16 04:30 ABG ABG pH 7.47 pH Units (7.32-7.45) H 12/09/16 04:03 ABG pCO2 56 mmHg (35-45) H 12/09/16 04:03 ABG pO2 139 mmHg (85-104) H 12/09/16 04:03 ABG O2 Saturation 99 % (95-98) H 12/09/16 04:03 PT/INR, D-dimer PT 13.8 Seconds (9.4-12.1) H 12/06/16 00:21 Abnormal lab findings: Abnormal lab results MCHC 30.2 g/dL (31.6-35.5) L 12/12/16 04:30 RDW 16.9 % (11.5-14.5) H 12/12/16 04:30 PT 13.8 Seconds (9.4-12.1) H 12/06/16 00:21 APTT 102.0 Seconds (26.0-36.0) H 12/10/16 03:41 ABG pH 7.47 pH Units (7.32-7.45) H 12/09/16 04:03 ABG pCO2 56 mmHg (35-45) H 12/09/16 04:03 ABG pO2 139 mmHg (85-104) H 12/09/16 04:03 ABG HCO3 41 mEq/L (21-27) H 12/09/16 04:03 ABG Total CO2 43 mEq/L (20-26) H 12/09/16 04:03 ABG O2 Saturation 99 % (95-98) H 12/09/16 04:03 ABG Base Excess 14.5 mEq/L (-2.0 to 3.0) H 12/09/16 04:03 VBG pCO2 57 mmHg (41-51) H 12/06/16 00:27 VBG pO2 43 mmHg (25-40) H 12/06/16 00:27 VBG HCO3 35 mEq/L (21-27) H 12/06/16 00:27 Chloride 93 mEq/L (98-109) L 12/12/16 04:30 Carbon Dioxide 34 mEq/L (19-29) H 12/12/16 04:30 Creatinine 0.54 mg/dL (0.57-1.11) L 12/12/16 04:30 BUN/Creatinine Ratio 30 (6-26) H 12/12/16 04:30 POC Glucose 90 (58-89) H 12/11/16 23:37 Ionized Calcium 0.79 mmol/L (1.15-1.35) L 12/06/16 10:38 Phosphorus 5.3 mg/dL (2.3-4.7) H D 12/07/16 02:52 Total Bilirubin 3.0 mg/dL (0.2-1.2) H 12/09/16 03:22 Direct Bilirubin 2.5 mg/dL (0.0-0.5) H 12/06/16 00:21 Indirect Bilirubin 1.3 mg/dL (0.0-1.2) H 12/06/16 00:21 AST 54 Units/L (5-34) H 12/09/16 03:22 ALT 71 Units/L (0-55) H 12/09/16 03:22 Alkaline Phosphatase 138 Units/L (38-126) H 12/09/16 03:22 Troponin I 0.09 ng/mL (0-0.03) H* 12/06/16 07:24 B-Natriuretic Peptide 3035 pg/mL (0-100) H 12/06/16 00:27 Serum Total Protein 4.9 g/dL (6.0-8.3) L 12/09/16 03:22 Albumin 1.8 g/dL (3.5-5.0) L 12/09/16 03:22 Albumin/Globulin Ratio 0.6 (1.1-2.2) L 12/09/16 03:22 Urine Color Bibb (Yellow) A 12/06/16 00:44 Urine Clarity Cloudy (Clear) A 12/06/16 00:44 Ur Specific [place] > 1.030 (1.010-1.025) H 12/06/16 00:44 Urine Protein 100 mg/dL (Neg-Trace) H 12/06/16 00:44 Urine Ketones Trace mg/dL (Negative) H 12/06/16 00:44 Urine Blood Large (Negative) H 12/06/16 00:44 Urine Nitrite Positive (Negative) A 12/06/16 00:44 Urine Bilirubin Moderate (Negative) H 12/06/16 00:44 Ur Leukocyte Esterase Small (Negative) H 12/06/16 00:44 Urine Microscopic RBC 15-30 per hpf (0-3) H 12/06/16 00:44 Ur Squamous Epith Cells Many per lpf (None-Few) H 12/06/16 00:44 Ur Culture Indicated? YES (NO) A 12/06/16 00:44 Vancomycin Trough 23.2 mcg/mL (10-20) H* 12/07/16 16:37 - Clinical Findings Intake & Output: Intake & Output 12/12/16 12/12/16 12/12/16 07:59 15:59 23:59 Intake Total 120 / 120 0 / 0 Output Total 75 / 75 100 / 100 Balance 45 / 45 -100 / -100 0 / 0 - Attending Attestation i saw the patient with the resident agree with History and Physical exam findings. Patient is alert following commands will extubate her today. Labs and Radiology were reviewed TRADING SPECIALIST: Patient is AX2 she gets on and off confusion NECK : No JVD appreciated Pulmonary : Gas exchange stable will wean O2 as tolerated Cardiac : Acute on Chronic systolic heart failure will hold the diuresis for now. Appreciate cardiology consult will start Coreg 6.25 mg BID .Will follow cardiology recs as she might LHC at some point and for optimization for outpatient regimen. Nutrition/GI: PPI prophylaxis . Chronic alcoholic liver disease . EGD done to rule out varices . There was no evidence of varices . Renal : Labs and output reviewed Heme onc : No acute issues All line were checked no evidence of infection. Disposition : Transfer to [facility]. Will need rehab Code status: DNRCCA Family/POA: Jude -Son
[2016-12-12] MEDS: Budesonide/Formoterol 80/4.5 MDI IH SCH ×2 (09:41→20:23)
[2016-12-12] MEDS ORDERED: Beer can PO ONE (10:45)
[2016-12-12] MEDS: Dexmedetomidine HCl 400 MCG/100 ML MLS IVC SCH (14:27)
[2016-12-12] MEDS ORDERED: Nystatin POWDER 30 GM BOTTLE TP SCH (15:00)
[2016-12-12] MEDS ORDERED: Ascorbic Acid 500 MG TABLET PO SCH ×2 (17:00→21:00)
[2016-12-12] MEDS ORDERED: Magnesium Sulfate 2 GM in D5% in Water 100 ML IVPB PRN (17:15)
[2016-12-12] MEDS ORDERED: Ipratropium/Albuterol Neb 3 ML IH PRN (17:15)
[2016-12-12] MEDS ORDERED: Naloxone 0.4 MG/ML INJ IVP PRN (17:15)
[2016-12-12] MEDS ORDERED: *HR* LORazepam 2 MG/ML VIAL IVP PRN ×3 (17:15)
[2016-12-12] MEDS ORDERED: Acetaminophen 325 MG TABLET PO PRN (17:15)
[2016-12-12] MEDS ORDERED: Albuterol 2.5 MG/3 ML NEBULIZER IH PRN (17:15)
[2016-12-12] MEDS ORDERED: Potassium Chloride 40 MEQ/200 ML BAG IVPB PRN (17:15)
[2016-12-13] MEDS: *HR* Morphine 2 MG/ML SYRINGE IVP PRN ×3 (00:02→11:25)
[2016-12-13] MEDS: *HR* Heparin 5,000 UNIT/ML VIAL SQ SCH ×3 (06:28→21:18)
[2016-12-13] MEDS: Thiamine (B-1) 100 MG TABLET PO SCH (07:51)
[2016-12-13] MEDS: Zinc Sulfate 220 MG CAPSULE PO SCH (07:51)
[2016-12-13] MEDS: Sennosides 8.6 MG TABLET PO SCH ×2 (07:52→21:18)
[2016-12-13] MEDS: Folic Acid 1 MG TABLET PO SCH (07:52)
[2016-12-13] MEDS: Ascorbic Acid 500 MG TABLET PO SCH ×2 (07:52→18:14)
[2016-12-13] MEDS: Nicotine 14 MG PATCH.TD24 TD SCH (07:53)
[2016-12-13] MEDS: Aspirin Enteric Coated 81 MG Tablet PO SCH (07:53)
[2016-12-13] MEDS: Multivit/Ca/Min/Fe/FA 1 TAB TABLET PO SCH (07:54)
[2016-12-13] MEDS: Budesonide/Formoterol 80/4.5 MDI IH SCH ×2 (08:03→20:05)
[2016-12-13] MEDS ORDERED: Zinc Sulfate 220 MG CAPSULE PO SCH (09:00)
[2016-12-13] MEDS ORDERED: Thiamine (B-1) 100 MG TABLET PO SCH (09:00)
[2016-12-13] MEDS ORDERED: *HR* OxyCODONE/APAP 10/325 TABLET PO ONE (12:09)
[2016-12-13] MEDS: *HR* HYDROmorphone (PF) 1 MG/ML SYRINGE IVP PRN (14:40)
[2016-12-14] MEDS: *HR* OxyCODONE/APAP 5/325 TABLET PO PRN ×2 (03:13→09:40)
[2016-12-14] MEDS: *HR* Morphine 2 MG/ML SYRINGE IVP PRN ×2 (04:32→18:12)
[2016-12-14] MEDS: *HR* Heparin 5,000 UNIT/ML VIAL SQ SCH ×3 (05:05→22:44)
[2016-12-14] MEDS: *HR* HYDROmorphone (PF) 1 MG/ML SYRINGE IVP PRN (07:17)
[2016-12-14] MEDS: Folic Acid 1 MG TABLET PO SCH (07:55)
[2016-12-14] MEDS: Sennosides 8.6 MG TABLET PO SCH ×2 (07:55→21:13)
[2016-12-14] MEDS: Zinc Sulfate 220 MG CAPSULE PO SCH (07:55)
[2016-12-14] MEDS: Ascorbic Acid 500 MG TABLET PO SCH ×2 (07:55→17:14)
[2016-12-14] MEDS: Aspirin Enteric Coated 81 MG Tablet PO SCH (07:55)
[2016-12-14] MEDS: Thiamine (B-1) 100 MG TABLET PO SCH (07:55)
[2016-12-14] MEDS: Multivit/Ca/Min/Fe/FA 1 TAB TABLET PO SCH (07:55)
[2016-12-14] MEDS: Nicotine 14 MG PATCH.TD24 TD SCH (08:03)
[2016-12-14] MEDS: Budesonide/Formoterol 80/4.5 MDI IH SCH ×2 (10:23→22:10)
[2016-12-14] MEDS ORDERED: Beer can PO ONE (14:39)
[2016-12-14 14:51] LABS: Basophils % 0.3 %; Eosinophils % 0.6 %; Hematocrit 40.3 % (35.3-44.9); Hemoglobin 12.5 g/dL (11.5-15.4); Immature Granulocytes % 0.6 % (0-4); Immature Platelets 10.5 % (1.1-6.1); Lymphocytes # 0.7 K/mcL (0.6-4.6); Lymphocytes % 10.1 %; Mean Corpuscular Hemoglobin 28.7 pg (28.0-33.3); Mean Corpuscular Volume 92.6 fL (83.0-100.0); Mean Platelet Volume 11.9 fL (9.4-12.4); Monocytes # 0.3 K/mcL (0.0-1.3); Neutrophils # 5.7 K/mcL (1.6-8.9); Platelet Count 140 K/mcL (140-400); Red Blood Count 4.35 M/mcL (3.82-4.97); Red Cell Distribution Width 17.2 % (11.5-14.5); Segmented Neutrophils % 83.4 %
--- NOTE | 2016-12-14 14:58 | Internal Med Progress Note ---
Date of Encounter: 12/13/16 Time of Encounter: 15:00 - Assessment and plan (1) Postoperative acute respiratory failure Current Visit: Yes Status: Acute Assessment and plan: Intubated 3 days ago and she has been diuresed with Lasix. She will receive BiPAP as needed. Pulmonology is following (2) Acute CHF (congestive heart failure) Current Visit: Yes Status: Acute Assessment and plan: Diuresis to help prevent overload, ejection fraction currently 30% as seen on the most recent ARNOLD Qualifiers: Congestive heart failure type: combined Qualified Code(s): I50.41 - Acute combined systolic (congestive) and diastolic (congestive) heart failure (3) Gangrene of left foot Current Visit: Yes Status: Acute (4) Peripheral artery disease Current Visit: Yes Status: Chronic (5) Alcohol abuse Current Visit: Yes Status: Chronic (6) Transaminitis Current Visit: Yes Status: Chronic (7) Aortic stenosis, severe Current Visit: Yes Status: Acute (8) Above knee amputation of left lower extremity Current Visit: Yes Status: Acute Assessment and plan: Secondary to left foot gangrene. - Subjective Interval history: Report given the patient earlier was confused. Patient currently she has been somnolent but answers questions appropriately. She does have an AKA incision pain requiring morphine periodically. She is afebrile - Constitutional Vitals: Temp Pulse Resp BP Pulse Ox 97.6 F 75 12 96/56 95 12/14/16 12:00 12/14/16 12:00 12/14/16 12:00 12/14/16 12:00 12/14/16 12:00 General appearance: Present: cachectic, A&O X 1 (oriented to self, knows she is in a hospital, but otherwise confused), disheveled Exam: General: Other (somnolent but arousable) HEENT: Atraumatic Neck: No JVD Cardiac: Normal S1 and S2, Lungs: Fine rales at both bases, breath sounds are diminished at the bases Abdomen: Soft Skin: No rashes noted on visualized skin Musculoskeletal: No Chest Wall Tenderness Extremities: No Edema, left AKA Internal Medicine: Result - Labs CBC & Chem 7: 12/14/16 14:43 12/14/16 14:43 Labs: Short CBC 12/14/16 Range/Units 14:43 WBC 6.8 (4.3-11.1) K/mcL Hgb 12.5 (11.5-15.4) g/dL Hct 40.3 (35.3-44.9) % Plt Count 140 (140-400) K/mcL Neutrophils # 5.7 (1.6-8.9) K/mcL - ABG Interpretation ABG results: ABG ABG pH 7.47 pH Units (7.32-7.45) H 12/09/16 04:03 ABG pCO2 56 mmHg (35-45) H 12/09/16 04:03 ABG pO2 139 mmHg (85-104) H 12/09/16 04:03 ABG O2 Saturation 99 % (95-98) H 12/09/16 04:03 PT/INR, D-dimer PT 13.8 Seconds (9.4-12.1) H 12/06/16 00:21 - VTE Documentation of Mechanical Device: Intermittent pneumatic compression device Consult Discharge Plan - Plan Referrals: NONE,PCP [Primary Care Provider] -
[2016-12-14 15:07] LABS: BUN/Creatinine Ratio 42 (6-26); Blood Urea Nitrogen 21 mg/dL (7-20); Calcium 8.7 mg/dL (8.6-10.8); Carbon Dioxide 31 mEq/L (19-29); Chloride 95 mEq/L (98-109); Glucose 81 mg/dL (70-99); Osmolality,Calculated 284 (280-300); Potassium 4.2 mEq/L (3.5-4.5); Sodium 136 mEq/L (136-145); eGFR For African Americans > 60 (> 60); eGFR For Non-African Americans > 60 (> 60)
[2016-12-14] MEDS ORDERED: *HR* OxyCODONE Immed Rel 5 MG TABLET PO PRN (16:03)
--- NOTE | 2016-12-14 16:59 | Internal Med Progress Note ---
Date of Encounter: 12/14/16 Time of Encounter: 11:00 - Assessment and plan (1) Postoperative acute respiratory failure Current Visit: Yes Status: Acute Assessment and plan: Secondary to CHF and alcoholic cardiomyopathy. He was diuresed yesterday and today is euvolemic. (2) Acute CHF (congestive heart failure) Current Visit: Yes Status: Acute Assessment and plan: On carvedilol and lisinopril. Blood pressure was lower and so lisinopril had to be held for last dose Qualifiers: Congestive heart failure type: combined Qualified Code(s): I50.41 - Acute combined systolic (congestive) and diastolic (congestive) heart failure (3) Gangrene of left foot Current Visit: Yes Status: Acute Assessment and plan: Status post left AKA (4) Peripheral artery disease Current Visit: Yes Status: Chronic (5) Alcohol abuse Current Visit: Yes Status: Chronic Assessment and plan: she is malnourished and she has is encouraged to eat, beerhas been helpful in promoting her to eat. She is currently being monitored for withdrawal, she has not had any signs or symptoms. She has not required any Ativan (6) Transaminitis Current Visit: Yes Status: Chronic Assessment and plan: We will change pain medication from Percocet to oxycodone alone to avoid hepatotoxicity (7) Aortic stenosis, severe Current Visit: Yes Status: Acute (8) Above knee amputation of left lower extremity Current Visit: Yes Status: Acute - Subjective Interval history: Patient is not very responsive. She was in pain and required by mouth Percocet which helped. He is afebrile easily arousable and responds to commands - Constitutional Vitals: Temp Pulse Resp BP Pulse Ox 98.1 F 72 14 127/74 100 12/14/16 15:40 12/14/16 15:40 12/14/16 15:40 12/14/16 15:40 12/14/16 15:40 General appearance: Present: cachectic, A&O X 1 (oriented to self, knows she is in a hospital, but otherwise confused), disheveled Exam: General: Other (somnolent but arousable) HEENT: Atraumatic Neck: No JVD Cardiac: Normal S1 and S2, Lungs: Fine rales at both bases, breath sounds are diminished at the bases Abdomen: Soft Skin: No rashes noted on visualized skin Musculoskeletal: No Chest Wall Tenderness Extremities: No Edema, left AKA Internal Medicine: Result - Labs CBC & Chem 7: 12/14/16 14:43 12/14/16 14:43 Labs: Short CBC 12/14/16 Range/Units 14:43 WBC 6.8 (4.3-11.1) K/mcL Hgb 12.5 (11.5-15.4) g/dL Hct 40.3 (35.3-44.9) % Plt Count 140 (140-400) K/mcL Neutrophils # 5.7 (1.6-8.9) K/mcL BMP 12/14/16 14:43 Sodium 136 Potassium 4.2 Chloride 95 L Carbon Dioxide 31 H BUN 21 H Creatinine 0.50 L Glucose 81 Calcium 8.7 - ABG Interpretation ABG results: ABG ABG pH 7.47 pH Units (7.32-7.45) H 12/09/16 04:03 ABG pCO2 56 mmHg (35-45) H 12/09/16 04:03 ABG pO2 139 mmHg (85-104) H 12/09/16 04:03 ABG O2 Saturation 99 % (95-98) H 12/09/16 04:03 PT/INR, D-dimer PT 13.8 Seconds (9.4-12.1) H 12/06/16 00:21 - VTE Documentation of Mechanical Device: Intermittent pneumatic compression device Consult Discharge Plan - Plan Referrals: NONE,PCP [Primary Care Provider] -
[2016-12-14] MEDS: Beer can PO SCH (17:23)
[2016-12-15] MEDS ORDERED: *HR* Dextrose 50 % in Water (Syg) 50 ML SYRINGE ONE (05:37)
[2016-12-15] MEDS ORDERED: *HR* Dextrose 50 % in Water (Syg) 50 ML SYRINGE IVP ONE (05:45)
[2016-12-15 06:27] LABS: Basophils % 0.3 %; Eosinophils % 0.3 %; Hematocrit 42.9 % (35.3-44.9); Hemoglobin 13.1 g/dL (11.5-15.4); Immature Granulocytes % 0.8 % (0-4); Lymphocytes # 0.8 K/mcL (0.6-4.6); Lymphocytes % 12.2 %; Mean Corpuscular HGB Conc 30.5 g/dL (31.6-35.5); Mean Corpuscular Hemoglobin 28.7 pg (28.0-33.3); Mean Corpuscular Volume 93.9 fL (83.0-100.0); Mean Platelet Volume 11.9 fL (9.4-12.4); Monocytes # 0.3 K/mcL (0.0-1.3); Monocytes % 5.2 %; Neutrophils # 5.3 K/mcL (1.6-8.9); Platelet Count 127 K/mcL (140-400); Red Blood Count 4.57 M/mcL (3.82-4.97); Segmented Neutrophils % 81.2 %
[2016-12-15 06:39] LABS: BUN/Creatinine Ratio 33 (6-26); Blood Urea Nitrogen 19 mg/dL (7-20); Calcium 8.8 mg/dL (8.6-10.8); Carbon Dioxide 34 mEq/L (19-29); Chloride 93 mEq/L (98-109); Glucose 121 mg/dL (70-99); Osmolality,Calculated 288 (280-300); Potassium 4.1 mEq/L (3.5-4.5); Sodium 137 mEq/L (136-145); eGFR For African Americans > 60 (> 60); eGFR For Non-African Americans > 60 (> 60)
[2016-12-15] MEDS: *HR* Heparin 5,000 UNIT/ML VIAL SQ SCH (07:01)
[2016-12-15 07:25] VITALS: BP 106/44
[2016-12-15] MEDS ORDERED: *HR* Dextrose 50 % in Water (Syg) 50 ML SYRINGE IVP PRN (09:55)
[2016-12-15] MEDS ORDERED: D5% in Water 1,000 ML IVC PRN (09:55)
[2016-12-15] MEDS ORDERED: Dextrose Gel 15 GM PO PRN ×2 (09:55)
[2016-12-15] MEDS: Aspirin Enteric Coated 81 MG Tablet PO SCH (10:01)
[2016-12-15] MEDS: Folic Acid 1 MG TABLET PO SCH (10:01)
[2016-12-15] MEDS: Ascorbic Acid 500 MG TABLET PO SCH (10:01)
[2016-12-15] MEDS: Multivit/Ca/Min/Fe/FA 1 TAB TABLET PO SCH (10:01)
[2016-12-15] MEDS: Nicotine 14 MG PATCH.TD24 TD SCH (10:01)
[2016-12-15] MEDS: Thiamine (B-1) 100 MG TABLET PO SCH (10:01)
[2016-12-15] MEDS: Sennosides 8.6 MG TABLET PO SCH (10:01)
[2016-12-15] MEDS: Zinc Sulfate 220 MG CAPSULE PO SCH (10:01)
[2016-12-15] MEDS: Beer can PO SCH (10:14)
[2016-12-15] MEDS: Budesonide/Formoterol 80/4.5 MDI IH SCH (10:45)
--- NOTE | 2016-12-15 18:43 | Death Note ---
Pronouncement Note - Date and Time of Date of : 12/15/16 Time of : 10:40 - PCOD Preliminary cause of : Cardiorespiratory arrest (Bradycardic in 20s with new T-wave inversions.) - Contributing Factors (1) Acute CHF (congestive heart failure) Contributing factors: EF 15-20% - Additional Data Attending physician: Travis Kerr MD
--- NOTE | 2016-12-15 18:43 | Internal Med Progress Note ---
Date of Encounter: 12/15/16 Time of Encounter: 09:30 - Assessment and plan (1) Postoperative acute respiratory failure Status: Acute Assessment and plan: At approximately 10:22 am patient was noted to have shallow breathing and I was called to bedside. Two RNs and her son Avila who is POA were present at bedside. Carotid pulse was faint and her breaths were shallow. She was bradycardic HR in 20s-40s and was lethargic. Patient was not maintaining airway. She was DNR CCA, and so no intubation was done. I offered that we may administer Romazicon to attempt to assist her breathing. Her son requested that she be left alone or to give her morphine. We asked if he was sure about this decision, he said he was sure. Patient appeared to be in PEA at this point as carotid pulse was no longer palpable at all. Patient at 10:39 am. (2) Acute CHF (congestive heart failure) Status: Acute Qualifiers: Congestive heart failure type: combined Qualified Code(s): I50.41 - Acute combined systolic (congestive) and diastolic (congestive) heart failure (3) Gangrene of left foot Status: Acute (4) Peripheral artery disease Status: Chronic (5) Alcohol abuse Status: Chronic (6) Transaminitis Status: Chronic (7) Aortic stenosis, severe Status: Acute (8) Above knee amputation of left lower extremity Status: Acute (9) Severe protein-calorie malnutrition Status: Acute - Subjective Interval history: Patient had CIWA score of 10 overnight requiring 2 mg IV ativan. She is currently drowsy and now on bipap for support. Romazicon 0.2 mg IN has been administered and patient now alert and breathing without respiratory support. - Constitutional Vitals: Temp Pulse Resp BP Pulse Ox 98.2 F 98 18 106/44 100 12/15/16 07:22 12/15/16 07:22 12/15/16 07:22 12/15/16 07:22 12/15/16 07:22 General appearance: Present: cachectic, A&O X 1 (oriented to self, knows she is in a hospital, but otherwise confused), disheveled - Respiratory Respiratory exam: Present: accessory muscle use, decreased breath sounds, respiratory distress. Absent: rales, wheezes - Extremities Exam Additional comments: left AKA wrapped, clean dressing. Right lower extremity is cool to touch and pulses are not palpable. Internal Medicine: Result - Labs CBC & Chem 7: 12/15/16 06:17 12/15/16 06:17 Labs: Short CBC 12/15/16 Range/Units 06:17 WBC 6.6 (4.3-11.1) K/mcL Hgb 13.1 (11.5-15.4) g/dL Hct 42.9 (35.3-44.9) % Plt Count 127 L (140-400) K/mcL Neutrophils # 5.3 (1.6-8.9) K/mcL BMP 12/15/16 06:17 Sodium 137 Potassium 4.1 Chloride 93 L Carbon Dioxide 34 H BUN 19 Creatinine 0.57 Glucose 121 H Calcium 8.8 - ABG Interpretation ABG results: ABG ABG pH 7.47 pH Units (7.32-7.45) H 12/09/16 04:03 ABG pCO2 56 mmHg (35-45) H 12/09/16 04:03 ABG pO2 139 mmHg (85-104) H 12/09/16 04:03 ABG O2 Saturation 99 % (95-98) H 12/09/16 04:03 PT/INR, D-dimer PT 13.8 Seconds (9.4-12.1) H 12/06/16 00:21 - VTE Documentation of Mechanical Device: Intermittent pneumatic compression device Consult Discharge Plan - Plan Referrals: NONE,PCP [Primary Care Provider] -
--- NOTE | 2016-12-17 12:44 | Death Note ---
Discharge Sum: Summary - Date and Time Date of admission: 12/06/16 01:20 Date of : 12/15/16 Time of : 10:39 - Summary Details: At approximately 10:22 am patient was noted to have shallow breathing and I was called to bedside. Two RNs and her son Avila who is POA were present at bedside. Carotid pulse was faint and her breaths were shallow. She was bradycardic HR in 20s-40s and was lethargic. Patient was not maintaining airway. She was DNR CCA, and so no intubation was done. I offered that we may administer Romazicon to attempt to assist her breathing. Her son requested that she be left alone or to give her morphine. We asked if he was sure about this decision, he said he was sure. Patient appeared to be in PEA at this point as carotid pulse was no longer palpable at all. Patient at 10:39 am. - Additional Data Confirmation of as documented by pronouncing clinician: no pulse, no respirations, no heart sounds, pupils fixed and dilated Family: at bedside Attending physician: Travis Kerr MD Was code activated?: No (DNR CCA) Autopsy requested?: No cone examiner notified?: No Organ bank notified?: No Hospice patient?: No Discharge Sum: Diag - PCOD Probable Cause of : Cardiorespiratory arrest (Bradycardia with new T-wave inversions.) Discharge Sum: Prov - Provider Primary care physician: PCP NONE Consults: 12/06/16 02:02 Consult to General [employer] [CONS] Routine Reason for SW Consult: placement 12/06/16 02:04 Consult to Vascular Surgery [CONS] Stat Consulting Provider: Vascular Surgery [facility] Reason for Consult: left foot necrosis Call Completed: Yes 12/06/16 03:30 Consult to Cardiology [CONS] Routine Comment: Consulting Provider: Cardiology [place] Reason for Consult: Acute CHF Call Completed: No 12/06/16 10:30 Consult to Surgery [CONS] Routine Consulting Provider: Surgery [facility] Reason for Consult: Left lower extremity gangrene, arterial occlusion Call Completed: Yes 12/07/16 15:53 Consult to Pulmonology [CONS] Routine Consulting Provider: [facility] [place] Reason for Consult: ET intubation s/p left AKA, severe systolic CHF, LV thrombus Call Completed: Yes 12/08/16 11:10 Consult to Gastroenterology [CONS] Routine Consulting Provider: Gastroenterology [facility] Reason for Consult: h/o cirrhosis, needs EGD prior to [facility] Time Notified: 11:11 Call Completed: Yes 12/10/16 15:32 Consult to Physical Therapy [CONS] Stat Comment: Evaluate, develop and implement POC Reason for Consult: s/p left AKA, may need home health vs rehab before discharge. 12/10/16 15:33 Consult to Occupational Therapy [CONS] Stat Comment: Evaluate, develop and implement POC Reason for Consult: s/p left AKA, may need home health vs rehab before discharge. Pronouncing clinician: Travis Kerr
== END 2016-12-15 12:50 | disposition expired | DRG 239 ==
LOC: EMEROO 22:29 → SUATTDRO 12-06 01:20 → ICNU 12-06 01:20 → 2NNU 12-12 16:09
PROVIDERS: ADMIT Internal Medicine; ATTEND Student in an Organized Health Care Education/Training Program